=== PATIENT | male | born 1955 | race Caucasian/White ===

== ENCOUNTER 2016-11-25 00:26 | Inpatient (IN) ==
[2016-11-25] MEDS ORDERED: Ipratropium/Albuterol Neb 3 ML ONE (00:29)
[2016-11-25] MEDS ORDERED: 0.9 % Sodium Chloride 1,000 ML IVC ONE (00:30)
[2016-11-25] MEDS ORDERED: methylPREDNISolone 125 MG/2 ML VIAL IVP ONE (00:30)
[2016-11-25] MEDS ORDERED: Ipratropium/Albuterol Neb 3 ML IH ONE (00:30)
[2016-11-25] MEDS ORDERED: 0.9 % Sodium Chloride 500 ML IV ONE (00:31)
[2016-11-25 00:41] LABS: ABG Base Excess 4.7 mEq/L (-2.0 to 3.0); ABG HCO3 29.9 mEQ/L (21-27); ABG Oxygen Saturation 90 % (95-98); ABG PCO2 45 mmHg (35-45); ABG PH 7.43 pH Units (7.32-7.45); ABG PO2 56 mmHg (85-104); ABG TCO2 31.3 mEq/L (20-26)
[2016-11-25 00:42] LABS: Blood Gas FiO2 100 %
[2016-11-25 00:49] LABS: Basophils % 0.3 %; Eosinophils % 0.1 %; Hematocrit 45.8 % (37.5-50.1); Hemoglobin 14.8 g/dL (12.9-16.9); Immature Granulocytes % 0.5 % (0-4); Lymphocytes % 8.5 %; Mean Corpuscular HGB Conc 32.3 g/dL (31.6-35.5); Mean Corpuscular Volume 86.7 fL (83.0-100.0); Monocytes % 8.3 %; Neutrophils # 9.9 K/mcL (1.6-8.9); Platelet Count 167 K/mcL (140-400); Red Blood Count 5.28 M/mcL (4.19-5.50); Red Cell Distribution Width 16.4 % (11.5-14.5); Segmented Neutrophils % 82.3 %
[2016-11-25 01:03] LABS: BUN/Creatinine Ratio 15 (6-26); Blood Urea Nitrogen 17 mg/dL (8-26); Calcium 9.4 mg/dL (8.6-10.8); Carbon Dioxide 26 mEq/L (19-29); Chloride 99 mEq/L (98-109); Glucose 175 mg/dL (70-99); Osmolality,Calculated 292 (280-300); Potassium 4.5 mEq/L (3.5-4.5); Sodium 138 mEq/L (136-145); eGFR For African Americans > 60 (> 60); eGFR For Non-African Americans > 60 (> 60)
--- NOTE | 2016-11-25 02:05 | Emergency Department Note ---
Addendum entered and electronically signed by Kulwinder Feldman DO 11/25/16 04: 14: Patient given Ativan in order to allow him to tolerate nasal cannula eventually BiPAP. 1 mg without effect. Second milligram patient was still agitated trying to pull his mask off. Third milligram has the patient resting comfortably in bed with gag reflex still intact. Medicine resident bedside and given signout. No need for intubation at this time as gag reflex is intact the patient's hemodynamics oxygenation are the best they have been during his emergency department stay. Original Note: Disposition Clinical Impression: Pneumonia Qualifiers: Pneumonia type: due to unspecified organism Laterality: left Lung location: unspecified part of lung Qualified Code(s): J18.9 - Pneumonia, unspecified organism Disposition: Admitted As Inpatient Condition: Fair Referrals: NO,PCP [Non-Partnered Physician] - Forms: ED Satisfaction Letter SOB HPI - General Chief Complaint: ED Shortness of Breath/Dyspnea Stated Complaint: ISIDRA Source: patient, EMS, other Limitations: altered mental status Nursing Notes Reviewed: Yes Vital Signs Reviewed: Yes - History of Present Illness Patient brought in by EMS after being found by [facility] staff in a confused state after returning from a day out. Patient's been speaking in confused sentences. Patient states that he has a history of atrial flutter and is on Eliquis. - Related Data Home Medications Medication Instructions Recorded Confirmed Apixaban [Eliquis] 5 mg PO BID 06/22/15 03/04/16 Diltiazem HCl [Cardizem Cd] 360 mg PO DAILY 06/22/15 03/04/16 Metoprolol [Lopressor] 25 mg PO BID 06/22/15 03/04/16 Quetiapine Fumarate [Seroquel] 100 mg PO HS 10/21/15 03/04/16 Amiodarone [Cordarone] 200 mg PO DAILY 03/04/16 03/04/16 Aspirin 81 mg PO DAILY 03/04/16 03/04/16 Duloxetine [Cymbalta] 90 mg PO DAILY 03/04/16 03/04/16 Mirtazapine [Remeron] 15 mg PO HS 03/04/16 03/04/16 Previous Rx's Medication Instructions Recorded Docusate [Colace] 100 mg PO BID #30 capsule 04/27/16 Ibuprofen [Motrin] 800 mg PO Q8HR #50 tablet 03/06/16 OxyCODONE/APAP 10/325 [Percocet 1 each PO Q4HR PRN #35 tablet 03/06/16 10/325 MG] Hydrocodone/Acetaminophen [[place] 1 tab PO Q6H PRN #16 tab 07/18/16 5-325 Tablet] Methocarbamol [Robaxin] 750 mg PO Q8HR PRN #12 tablet 07/20/16 HYDROcodone/Acet 10/325 mg [[place] 1 tab PO Q6HR PRN #15 tab 07/22/16 10-325 mg] Allergies Allergy/AdvReac Type Severity Reaction Status Date / Time Tetanus Vaccines and Toxoid AdvReac Intermediate Fever Verified 06/22/15 14:01 [Tetanus Vaccines & Toxoid] Limitations: ROS unobtainable due to patients medical condition Past Medical History - Past Medical History Medical history: Reports: other Surgical history: Reports: angioplasty/stent, appendectomy, cholecystectomy, orthopedic, other, other Psychiatric history: Reports: anxiety, depression, other - Social History Smoking Status: Current every day smoker Smokeless Tobacco Status: No Alcohol use: Reports: none Drug use: Reports: none Physical Exam - General Limitations: altered mental status General appearance: alert - Head Head exam: atraumatic, normocephalic - Eye Eye exam: Present: normal appearance, PERRL, EOMI - ENT ENT exam: normal exam, normal oropharynx - Neck Neck exam: Present: normal inspection - Chest Chest inspection: Present: normal inspection, symmetric chest wall rise. Absent : tenderness - Respiratory Respiratory exam: Present: respiratory distress, wheezes (Diffuse bilateral) - Cardiovascular Cardiovascular exam: Present: normal rhythm, tachycardia - Abdominal Exam Abdominal exam: Present: soft, Non-Tender - Extremities Exam Extremities exam: Present: other (Many ecchymotic lesions to the upper extremities) - Back Exam Back exam: Present: normal inspection - Neurological Exam Neurological exam: Present: alert. Absent: oriented X3, motor sensory deficit - Skin Skin exam: Present: warm, dry, intact Course - Reevaluation(s) Reevaluation #1: Patient found to have significant pneumonia on the left. Patient has been refusing nasal cannula and BiPAP which drops his oxygen into the mid 70s resting in bed. Patient wants to go home. Was explained to the patient that he could go into respiratory arrest very easily. Patient is requesting Ativan and nicotine stay. Patient will be given Ativan and nicotine patch with Ativan titrated to agitation and allowing supplemental oxygen. - Consultations Consultation #1: Discussed with hospitalist. Dr. ROBERTSON Patient accepted. Vital Signs Temperature 98.1 F 11/25/16 00:30 Pulse Rate 121 11/25/16 00:30 Respiratory Rate 30 11/25/16 00:30 Blood Pressure 123/80 11/25/16 00:30 O2 Sat by Pulse Oximetry 92 L 11/25/16 00:30 Temperature 98.1 F 11/25/16 00:30 Pulse Rate 97 11/25/16 03:14 Respiratory Rate 22 11/25/16 03:14 Blood Pressure 130/76 11/25/16 03:14 O2 Sat by Pulse Oximetry 82 L 11/25/16 03:14 Oxygen Delivery Oxygen Delivery Room Air Shortness of Breath/Dyspnea - Lab Data Result diagrams: 11/25/16 00:40 11/25/16 00:40 Lab Results 11/25/16 11/25/16 11/25/16 Range/Units 00:34 00:34 00:40 WBC 12.1 H (4.3-11.1) K/mcL RBC 5.28 (4.19-5.50) M/mcL Hgb 14.8 (12.9-16.9) g/dL Hct 45.8 (37.5-50.1) % MCV 86.7 (83.0-100.0) fL MCH 28.0 (28.0-33.3) pg MCHC 32.3 (31.6-35.5) g/dL RDW 16.4 H (11.5-14.5) % Plt Count 167 (140-400) K/mcL MPV 10.0 (9.4-12.4) fL Immature Gran % 0.5 (0-4) % Seg Neutrophils % 82.3 % Lymphocytes % 8.5 % Monocytes % 8.3 % Eosinophils % 0.1 % Basophils % 0.3 % Neutrophils # 9.9 H (1.6-8.9) K/mcL Lymphocytes # 1.0 (0.6-4.6) K/mcL Monocytes # 1.0 (0.0-1.3) K/mcL Eosinophils # 0.0 (0.0-0.6) K/mcL Basophils # 0.0 (0.0-0.2) K/mcL D-Dimer (0-500) ng/mLFEU ABG pH 7.43 (7.32-7.45) pH Units ABG pCO2 45 (35-45) mmHg ABG pO2 56 L (85-104) mmHg ABG HCO3 29.9 H (21-27) mEQ/L ABG Total CO2 31.3 H (20-26) mEq/L ABG O2 Saturation 90 L (95-98) % ABG Base Excess 4.7 H (-2.0 to 3.0) mEq/L Blood Gas Modality NRB Inspired O2 100 % Sodium (136-145) mEq/L Potassium (3.5-4.5) mEq/L Chloride (98-109) mEq/L Carbon Dioxide (19-29) mEq/L BUN (8-26) mg/dL Creatinine (0.72-1.25) mg/dL Est GFR ( Amer) (> 60) Est GFR (Non-Af Amer) (> 60) BUN/Creatinine Ratio (6-26) Glucose (70-99) mg/dL POC Glucose 178 H (58-89) Calculated Osmolality (280-300) Calcium (8.6-10.8) mg/dL Troponin I (0-0.03) ng/mL B-Natriuretic Peptide (0-100) pg/mL 11/25/16 11/25/16 11/25/16 Range/Units 00:40 00:40 00:40 WBC (4.3-11.1) K/mcL RBC (4.19-5.50) M/mcL Hgb (12.9-16.9) g/dL Hct (37.5-50.1) % MCV (83.0-100.0) fL MCH (28.0-33.3) pg MCHC (31.6-35.5) g/dL RDW (11.5-14.5) % Plt Count (140-400) K/mcL MPV (9.4-12.4) fL Immature Gran % (0-4) % Seg Neutrophils % % Lymphocytes % % Monocytes % % Eosinophils % % Basophils % % Neutrophils # (1.6-8.9) K/mcL Lymphocytes # (0.6-4.6) K/mcL Monocytes # (0.0-1.3) K/mcL Eosinophils # (0.0-0.6) K/mcL Basophils # (0.0-0.2) K/mcL D-Dimer 1282 H (0-500) ng/mLFEU ABG pH (7.32-7.45) pH Units ABG pCO2 (35-45) mmHg ABG pO2 (85-104) mmHg ABG HCO3 (21-27) mEQ/L ABG Total CO2 (20-26) mEq/L ABG O2 Saturation (95-98) % ABG Base Excess (-2.0 to 3.0) mEq/L Blood Gas Modality Inspired O2 % Sodium 138 (136-145) mEq/L Potassium 4.5 (3.5-4.5) mEq/L Chloride 99 (98-109) mEq/L Carbon Dioxide 26 (19-29) mEq/L BUN 17 (8-26) mg/dL Creatinine 1.16 (0.72-1.25) mg/dL Est GFR ( Amer) > 60 (> 60) Est GFR (Non-Af Amer) > 60 (> 60) BUN/Creatinine Ratio 15 (6-26) Glucose 175 H (70-99) mg/dL POC Glucose (58-89) Calculated Osmolality 292 (280-300) Calcium 9.4 (8.6-10.8) mg/dL Troponin I 0.20 H* (0-0.03) ng/mL B-Natriuretic Peptide (0-100) pg/mL 11/25/16 Range/Units 00:40 WBC (4.3-11.1) K/mcL RBC (4.19-5.50) M/mcL Hgb (12.9-16.9) g/dL Hct (37.5-50.1) % MCV (83.0-100.0) fL MCH (28.0-33.3) pg MCHC (31.6-35.5) g/dL RDW (11.5-14.5) % Plt Count (140-400) K/mcL MPV (9.4-12.4) fL Immature Gran % (0-4) % Seg Neutrophils % % Lymphocytes % % Monocytes % % Eosinophils % % Basophils % % Neutrophils # (1.6-8.9) K/mcL Lymphocytes # (0.6-4.6) K/mcL Monocytes # (0.0-1.3) K/mcL Eosinophils # (0.0-0.6) K/mcL Basophils # (0.0-0.2) K/mcL D-Dimer (0-500) ng/mLFEU ABG pH (7.32-7.45) pH Units ABG pCO2 (35-45) mmHg ABG pO2 (85-104) mmHg ABG HCO3 (21-27) mEQ/L ABG Total CO2 (20-26) mEq/L ABG O2 Saturation (95-98) % ABG Base Excess (-2.0 to 3.0) mEq/L Blood Gas Modality Inspired O2 % Sodium (136-145) mEq/L Potassium (3.5-4.5) mEq/L Chloride (98-109) mEq/L Carbon Dioxide (19-29) mEq/L BUN (8-26) mg/dL Creatinine (0.72-1.25) mg/dL Est GFR ( Amer) (> 60) Est GFR (Non-Af Amer) (> 60) BUN/Creatinine Ratio (6-26) Glucose (70-99) mg/dL POC Glucose (58-89) Calculated Osmolality (280-300) Calcium (8.6-10.8) mg/dL Troponin I (0-0.03) ng/mL B-Natriuretic Peptide 197 H (0-100) pg/mL - Radiology Data Radiology results reviewed: Yes I reviewed the patient's radiology results. - EKG Data EKG attestation: Yes I reviewed and interpreted this EKG. EKG results narrative: EKG shows sinus tachycardia with a ventricular rate of 120 bpm. GA interval 176. QRS 114. Patient has concern for T-wave inversions in the lateral leads. EKG changes to since previous EKG of 01/30/16.
[2016-11-25] MEDS ORDERED: Aspirin 81 MG TAB.CHEW PO ONE (02:18)
[2016-11-25] MEDS ORDERED: *HR* LORazepam 2 MG/ML VIAL IVP ONE ×3 (03:03→03:29)
[2016-11-25] MEDS ORDERED: Azithromycin 500 MG in D5% in Water 250 ML IVPB ONE (03:04)
[2016-11-25] MEDS ORDERED: *HR* LORazepam 2 MG/ML VIAL ONE (03:23)
[2016-11-25] MEDS ORDERED: 0.9 % Sodium Chloride 1,000 ML IV ONE (03:34)
[2016-11-25] MEDS ORDERED: Naloxone 0.4 MG/ML INJ IVP PRN (04:19)
--- NOTE | 2016-11-25 05:13 | Internal Med History&Physical ---
<Erik Abarca - Last Filed: 11/25/16 06:17> Date of Encounter: 11/25/16 Time of Encounter: 04:00 Assessment and Plan (1) Respiratory failure Current visit: Yes Status: Acute Acute on chronic respiratory failure with COPD exacerbation secondary to pneumonia. Currently saturating well on BIPAP. Due to the sedated mental status will continue BIPAP at this time, wean off once more awake and alert. Continue to monitor O2 Sat, O2 sat goal 89-92% Continue O2 supplementation as needed Qualifiers: Chronicity: acute on chronic Respiratory failure complication: hypoxia Qualified Code(s): J96.21 - Acute and chronic respiratory failure with hypoxia (2) Pneumonia Current visit: Yes Status: Acute Community acquired pneumonia. Azithromycin and ceftriaxone given in the ED. Continue Azithromycin and cetriaxone Follow blood culture. Qualifiers: Pneumonia type: due to unspecified organism Laterality: left Lung location: unspecified part of lung Qualified Code(s): J18.9 - Pneumonia, unspecified organism (3) COPD (chronic obstructive pulmonary disease) Current visit: Yes Status: Acute Patient given solumedrol 125 in the ED. Continue IV steroids and bronchodilators. Titrate therapy as patient clinically improves. Patient currently on BIPAP. Qualifiers: COPD type: COPD with acute exacerbation Qualified Code(s): J44.1 - Chronic obstructive pulmonary disease with (acute) exacerbation (4) Atrial flutter Current visit: Yes Status: Acute Currently sinus rhythm. Continue lopressor and cardizem. Anticoagulation with Eliquis. Qualifiers: Atrial flutter type: atypical Qualified Code(s): I48.4 - Atypical atrial flutter (5) CAD (coronary artery disease) Current visit: No Status: Chronic Status post angioplasty and stenting. With elevated troponin likely due to demand ischemia. Will trend troponins. Qualifiers: Coronary Disease-Associated Artery/Lesion type: [place] artery [place] vs. transplanted heart: [place] heart Associated angina: without angina Qualified Code(s): I25.10 - Atherosclerotic heart disease of [place] coronary artery without angina pectoris (6) DVT prophylaxis Current visit: Yes Status: Acute The patient is on Eliquis. (7) Diabetes Current visit: Yes Status: Acute Sliding scale with glucose checks Q6 until the patient is able to eat. Diabetic diet. Last A1c in June 2015 was 6.7. Will repeat A1c Qualifiers: Diabetes mellitus type: type 2 Diabetes mellitus complication status: with unspecified complications Diabetes mellitus superintendent terminal insulin use: without superintendent terminal use Qualified Code(s): E11.8 - Type 2 diabetes mellitus with unspecified complications (8) Tobacco abuse Current visit: Yes Status: Acute Unable to give smoking cessation counselling at this time due to patient being unarousable. Nicoderm patches PRN. (9) Polysubstance abuse Current visit: No Status: Chronic History of alcohol abuse reported. Followup EtOH level. If positive consider CIWA protocol. Followup Urine tox screen. Internal Medicine - H&P: HPI Chief complaint: shortness of breath Admitted From: Emergency Dept Plans for Post Hospital Care: Home (intermediate) History of present illness: Mr. Gilliland is a 61 year old male with PMH significant for CAD, A. flutter, COPD, HTN, and thyroid disease who presented to the ED via EMS for shortness of breath. It was reported that the patient returned to his intermediate after being out for the day and seemed slightly confused and complained of being short of breath. EMS was then called. In the emergency department the patient was noncooperative and wanting to leave AMA despite oxygen saturation being in the 70s on room air. The patient was at 95% saturation on 70% FiO2 with nonrebreather mask. The ED staff decided to place the patient on BiPAP, but the patient continued to be uncooperative. He was subsequently given 3 doses of 1mg Ativan and became somnolent. When I arrived at the ED to obtain history from the patient he was not able to be aroused, but did have a gag reflex elicited by a tongue depressor. Due to this history was not able to be obtained directly from the patient, but additional history was obtained by old medical records. Additional history demonstrates that the patient has a history of drug abuse with heroin, hepatitis C and chronic alcohol use with alcohol dependence. He additionally has several suicide attempts. Past Med Surg Social Fam HX - Past Medical History Source: old records reviewed Medical history: COPD, coronary artery disease, hepatitis (C), hypertension, thyroid disease, other (atrial flutter) Psychiatric history: anxiety, depression, prior suicide attempt, other - Past Surgical History Surgical History: angioplasty/stent, appendectomy, cholecystectomy, orthopedic, other, other - Social History Smoking Status: Current every day smoker Smokeless Tobacco Status: No Alcohol use: none Drug use: none - Additional Family History Additional family history: Not obtainable due to patient's status. Internal Medicine - H&P: Meds RX: Apixaban [Eliquis] 5 mg PO BID 06/22/15 [History] RX: Diltiazem HCl [Cardizem Cd] 360 mg PO DAILY 06/22/15 [History] RX: Metoprolol [Lopressor] 25 mg PO BID 06/22/15 [History] RX: Quetiapine Fumarate [Seroquel] 100 mg PO HS 10/21/15 [History] RX: Amiodarone [Cordarone] 200 mg PO DAILY 03/04/16 [History] RX: Aspirin 81 mg PO DAILY 03/04/16 [History] RX: Duloxetine [Cymbalta] 90 mg PO DAILY 03/04/16 [History] RX: Mirtazapine [Remeron] 15 mg PO HS 03/04/16 [History] Docusate [Colace] 100 mg PO BID #30 capsule 03/06/16 [Rx] OxyCODONE/APAP 10/325 [Percocet 10/325 MG] 1 each PO Q4HR PRN #35 tablet [Rx] RX: Ibuprofen [Motrin] 800 mg PO Q8HR #50 tablet 03/06/16 [Rx] Hydrocodone/Acetaminophen [[place] 5-325 Tablet] 1 tab PO Q6H PRN #16 tab [Rx] Methocarbamol [Robaxin] 750 mg PO Q8HR PRN #12 tablet 07/20/16 [Rx] HYDROcodone/Acet 10/325 mg [Zap 10-325 mg] 1 tab PO Q6HR PRN #15 tab 07/22/16 [Rx] Allergies Tetanus Vaccines and Toxoid [Tetanus Vaccines & Toxoid] Adverse Reaction ( Intermediate, Verified 06/22/15 14:01) Fever PATIENT STATES HE EXPERIENCED A HIGH FEVER AND INABILITY TO GET OUT OF BED ROS unobtainable: due to mental status All Systems PM: A 10-system review of systems was performed and is negative for pertinent findings except as documented above in the HPI. - Constitutional Vitals: Temp Pulse Resp BP Pulse Ox 98.1 F 93 18 113/67 95 11/25/16 00:30 11/25/16 03:49 11/25/16 03:58 11/25/16 03:58 11/25/16 03:49 Exam: Patient was non-rousable - Head Head exam: Present: atraumatic, normocephalic - Neck Neck exam general surgery: Present: supple, trachea midline. Absent: lymphadenopathy - Respiratory Respiratory exam: Present: wheezes. Absent: accessory muscle use, rales, rhonchi Additional comments: On BiPAP - Cardiovascular Cardiovascular exam: Present: RRR, +S1, +S2. Absent: diastolic murmur, gallop, rubs, systolic murmur - GI/Abdominal GI/Abdominal exam: Present: normal bowel sounds, soft. Absent: distended - Extremities Exam Extremities exam: Present: warm, radial pulses palpable and symetrical. Absent : cyanotic, pedal edema - Neurological Exam Additional comments: Unable to assess - Skin Skin exam: Present: abrasion (Multiple abrasions present over all extremities in different states of healing), dry Additional comments: Ecchymosis present over the right forearm Internal Med - H&P Results - Labs CBC & Chem 7: 11/25/16 00:40 11/25/16 00:40 - Attending Attestation I examined this patient and my medical decision-making was reviewed with the EDDY CURRENT INSPECTOR/PA/Advanced Practice Nurse/Resident Physician. I agree with the documented findings, disposition and treatment plan as described except to the extent set forth below. <Lindsey Morel - Last Filed: 11/25/16 06:22> Date of Encounter: 11/25/16 Time of Encounter: 05:15 Internal Medicine - H&P: HPI History of present illness: Mr. Gilliland is a 61 year old male All Systems PM: A 10-system review of systems was performed and is negative for pertinent findings except as documented above in the HPI. - Constitutional Vitals: Temp Pulse Resp BP Pulse Ox 97.5 F L 87 14 109/80 93 L 11/25/16 05:29 11/25/16 05:29 11/25/16 05:29 11/25/16 05:29 11/25/16 05:29 Internal Med - H&P Results - Labs CBC & Chem 7: 11/25/16 00:40 11/25/16 00:40 - Attending Attestation Patient resting in bed, somnolent, saturating well on bipap. Please attempt to obtain more clinical history once patient awakens. Acute respiratory failure secondary underlyling COPD exacerbation Multifocal PNA-continue IV abx COPD exac: IV steroids and bronchodilators, titrate therapy as patient clinically improves Aflutter: Rate currently controlled and anticoagulated with Eliquis. Patient noted to have diffuse bruising on upper and lower extremities, please obtain PT/ OT eval prior to discharge. Unclear etiology of bruising whether they are secondary to falls worsened with current Eliquis use. F/U Tox screen and EtOH level Pt has history of HbA1C of 6.7 however not on any antidiabetic regimen at home. Will start correctional insulin sliding scale algorithm and closely monitor fingerstick and blood glucose.
[2016-11-25] MEDS: Famotidine 20 MG/2 ML VIAL IVP SCH ×2 (05:32→17:13)
[2016-11-25] MEDS ORDERED: D5% in Water 1,000 ML IV PRN (05:43)
[2016-11-25] MEDS ORDERED: Dextrose Gel 15 GM PO PRN ×2 (05:43)
[2016-11-25] MEDS ORDERED: *HR* Dextrose 50 % in Water (Syg) 50 ML SYRINGE IVP PRN (05:43)
[2016-11-25 06:01] LABS: Amphetamine Screen,Urine Negative ng/mL (Cutoff=1000); Barbiturate Screen,Urine Negative ng/mL (Cutoff=200); Benzodiazepines Screen,Urine Negative ng/mL (Cutoff=200); Cannabinoid Screen,Urine Negative ng/mL (Cutoff = 50); Cocaine Screen,Urine Negative ng/mL (Cutoff= 300); Opiate Screen,Urine Negative ng/mL (Cutoff=300); Phencyclidine Screen,Urine Negative ng/mL (Cutoff=25)
[2016-11-25] MEDS: Insulin LISPRO 300 UNITS/3 ML VIAL SQ SCH ×4 (06:32→20:40)
[2016-11-25] MEDS ORDERED: Aspirin 325 MG TABLET PO ONE (09:00)
--- NOTE | 2016-11-25 10:00 | Cardiology Consult Note ---
Date of Encounter: 11/25/16 Time of Encounter: 10:00 Assessment and Plan (1) Elevated troponin Current Visit: Yes Status: Acute Mildly elevated troponin in setting of multifocal pneumonia and respiratory insufficiency. No dynamic ECG changes. Presentation not consistent with ACS. Elevated troponin appears secondary to respiratory insufficiency. Recommend a repeat echocardiogram and a third troponin. If no significant changes in LVEF or troponin, then I would not recommend any further cardiac testing at this time. Your supportive managment regarding PNA and comorbidities. (2) Atrial flutter Current Visit: Yes Status: Acute Currently sinus rhythm. Paroxysmal atrial flutter history s/p attempted ablation in 2012. Ablation not successful and patient had cardioversion after procedure. He has been maintained on full AC and BB therapy. No new recommendations. Qualifiers: Atrial flutter type: atypical Qualified Code(s): I48.4 - Atypical atrial flutter (3) Pneumonia Current Visit: Yes Status: Acute Community acquired pneumonia. Your IM management. Qualifiers: Pneumonia type: due to unspecified organism Laterality: left Lung location: unspecified part of lung Qualified Code(s): J18.9 - Pneumonia, unspecified organism (4) CAD (coronary artery disease) Current Visit: No Status: Chronic Reported history of CAD, prior PCI. Recommend continue aspirin, statin, and BB therapy. Qualifiers: Coronary Disease-Associated Artery/Lesion type: [place] artery [place] vs. transplanted heart: [place] heart Associated angina: without angina Qualified Code(s): I25.10 - Atherosclerotic heart disease of [place] coronary artery without angina pectoris Discussion w patient/family: The assessment and plan as outlined above was discussed with the patient and/or family members who expressed understanding and agreement. All questions were answered. Thank you for involving us in the care of your patient. Please call with any questions. History of Present Illness Consult date: 11/25/16 Requesting physician: Lindsey Morel Consult reason: ISIDRA, elevated troponin Chief complaint: ISIDRA History of present illness: Mr. Gilliland is a 61 year old male with a reported history of CAD, prior PCI, atrial flutter s/p attempted ablation requiring cardioversion. Follows with Dr. Denson and has been on Eliquis therapy. Echocardiogram 10/2015 - LVEF 50-55%. Inferior hypokinesis. Per reports, presented to ER with altered mentation. Respiratory insufficiency reported in ER requiring CPAP. CT obtained - multifocal pneumonia described. Upon my evaluation, patient appears comfortable on CPAP. Appears tired, but easliy awakens with tactile stimuli. He does fall back asleep easily. Does not provide details of history. Past Med Surg Social Fam HX - Past Medical History Medical history: COPD, coronary artery disease, hepatitis (C), hypertension, thyroid disease, other (atrial flutter) Psychiatric history: anxiety, depression, prior suicide attempt, other - Past Surgical History Surgical History: angioplasty/stent, appendectomy, cholecystectomy, orthopedic, other, other - Social History Smoking Status: Current every day smoker Smokeless Tobacco Status: No Alcohol use: none Drug use: none Medications and Allergies Apixaban [Eliquis] 5 mg PO BID 06/22/15 [History] Diltiazem HCl [Cardizem Cd] 360 mg PO DAILY 06/22/15 [History] Metoprolol [Lopressor] 25 mg PO BID 06/22/15 [History] Quetiapine Fumarate [Seroquel] 100 mg PO HS 10/21/15 [History] Amiodarone [Cordarone] 200 mg PO DAILY 03/04/16 [History] Aspirin 81 mg PO DAILY 03/04/16 [History] Duloxetine [Cymbalta] 90 mg PO DAILY 03/04/16 [History] Mirtazapine [Remeron] 15 mg PO HS 03/04/16 [History] Docusate [Colace] 100 mg PO BID #30 capsule 03/06/16 [Rx] Ibuprofen [Motrin] 800 mg PO Q8HR #50 tablet 03/06/16 [Rx] OxyCODONE/APAP 10/325 [Percocet 10/325 MG] 1 each PO Q4HR PRN #35 tablet [Rx] Hydrocodone/Acetaminophen [[place] 5-325 Tablet] 1 tab PO Q6H PRN #16 tab [Rx] Methocarbamol [Robaxin] 750 mg PO Q8HR PRN #12 tablet 07/20/16 [Rx] HYDROcodone/Acet 10/325 mg [[place] 10-325 mg] 1 tab PO Q6HR PRN #15 tab 07/22/16 [Rx] Allergies Tetanus Vaccines and Toxoid [Tetanus Vaccines & Toxoid] Adverse Reaction ( Intermediate, Verified 06/22/15 14:01) Fever PATIENT STATES HE EXPERIENCED A HIGH FEVER AND INABILITY TO GET OUT OF BED ROS unobtainable: due to mental status, other (lethargy) All Systems Review: A 10-system review of systems was performed and is negative for pertinent findings except as documented above in the HPI. Physical Examination Vital Signs, Last 4 Hours Temp Pulse Resp BP Pulse Ox 11/25/16 09:06 76 11 103/68 89 L 11/25/16 07:35 78 10 90 L 11/25/16 07:24 97.6 F 75 10 92/61 92 L General: No Apparent Distress, Other (Lethargic) HEENT: Atraumatic, Normocephaly, Mucus Membranes Moist Neck: No JVD, Normal carotid pulses Cardiac: Reg Rate and Rhythm, Normal S1 and S2, No Murmur Lungs: Other (Shallow, scattered rhonchi) Neuro: Other (Asleep) Abdomen: Soft, Non-Tender Skin: No rashes noted on visualized skin Musculoskeletal: No Chest Wall Tenderness Extremities: No Edema Results 11/25/16 00:40 11/25/16 00:40 Lab Results 11/25/16 05:53 Troponin I 0.63 H* - Imaging and Cardiology Chest Xray: report reviewed Echo: report reviewed - EKG Interpretation EKG results cardiology: personally reviewed Consult Discharge Plan - Plan Referrals: Isauro Denson MD [Primary Care Provider] -
[2016-11-25] MEDS: Nicotine 21 MG PATCH.TD24 TD SCH (12:41)
[2016-11-25] MEDS: APIXABAN 5 MG TABLET PO SCH ×2 (12:42→20:48)
[2016-11-25] MEDS: Aspirin 81 MG TAB.CHEW PO SCH (12:42)
[2016-11-25] MEDS: Diltiazem CD (24hr) 180 MG CAPSULE PO SCH (12:42)
--- NOTE | 2016-11-25 12:46 | Event Note ---
Date of Encounter: 11/25/16 Time of Encounter: 10:00 pt was admitted early in the morning with bilateral pneumonia will . still SOB will increase antibiotic coverage to zosyn , until cultures arrive pt lethargic concern for aspiration as well , will D escalate after culture results
--- NOTE | 2016-11-25 13:03 | ECHO - Doppler Report ---
Limited Echocardiogram Name: Donn Gilliland Date of Study: 11/25/2016 Date: 1955 Ht: 73.0 in Medical Record#: [id number] Age: 61 Wt: 209.0 lb Gender: Male BSA: 2.19 Order #: [id number] Location: [facility] Room #: 2N10 Reading Physician: Xiomy Allan DO Pulmonary Specialist: Joaquin Gonzales RN Ordering Physician: Saulo Ray DO,[facility],JANINA ONTIVEROS Primary Physician: None Indications: Coronary artery disease Impressions: LVEF 65%. Normal left ventricular size and systolic function. Segmental wall motion abnormality was seen on previous study, 10/23/2015. Left Ventricular Wall Motion: Rest Echo Findings The basal inferior wall was hypokinetic. All other wall segments showed normal motion. Findings: Study Quality * Technically adequate exam. ECG Findings * Normal sinus rhythm. Left Ventricle * LVEF 65%. * Normal LV chamber size, wall thickness and function. History History of Smoking Years 40 Packs 1 Family History of CAD History of CAD/PTCA Myocardial Infarction Congestive Heart Failure 10/23/2015 a Previous Echo was performed. Measurements: BP: 117/ 81 2D Normal Values IVSd: 1.10 cm 0.6 - 1.0 cm LVIDd: 5.40 cm 3.7 - 5.6 cm LVPWd: 1.10 cm 0.6 - 1.1 cm LVIDs: 2.90 cm 1.5 - 3.6 cm %FS: 46.30 cm >25 % LA volume: Updated by Xiomy Allan on 11/25/2016 12:59:20 PM electronically signed on 11/25/2016 1:00:18 PM with status of Final Wall Motion Howe: 1=Normal, 2=Hypokinesis, 3=Akinesis, 4=Dyskinesis, 5=Aneurysmal, 6=Hyperkinetic, X=Not Visualized (Blank)=Missing
--- NOTE | 2016-11-25 13:18 | Event Note ---
Date of Encounter: 11/25/16 Time of Encounter: 13:16 Echocardiogram reviewed. LVEF 65%. No segmental wall motion abnormalities described. Suspect troponin elevation likely secondary to multifocal pneumonia and respiratory insufficiency. No compelling indication for further cardiac testing or procedures at this time. Your medical management. Cardiology will sign off. Please call with any questions or concerns. Follow up with cardiology as outpatient for history of atrial flutter. Thanks, Saulo Ray DO, FACC
--- NOTE | 2016-11-25 15:06 | Electrocardiograph Report ---
[facility] Test Date: 2016-11-25 Pat Name: Donn Gilliland Department: 102 Room: 2N10 Gender: M Software Engineering Associate Manager: Vivek : 1955 Requested By: Kulwinder Feldman Order Number: [id number] Reading MD: Isauro Denson MD Measurements Intervals [place] Rate: 120 P: 35 [place]: 176 QRS: -22 QRSD: 114 T: 89 QT: 433 QTc: 505 Interpretive Statements SINUS TACHYCARDIA CONSIDER LATERAL ISCHEMIA POOR R WAVE PROGRESSION Electronically Signed On 11-25-16 15:05:00 EST by Isauro Denson MD
[2016-11-25] MEDS: MethylPREDNISolone 40 MG/ML VIAL IVP SCH (17:13)
[2016-11-25] MEDS: *HR* HYDROcodone/Acet 5/325 mg TABLET PO PRN (17:13)
[2016-11-25] MEDS: Piperacillin/Tazobactam 3.375 GM in D5% in Water (Mini-Bag+) 100 ML IVPB SCH (17:13)
[2016-11-25] MEDS: *HR* LORazepam 1 MG TABLET PO PRN (20:48)
[2016-11-26] MEDS: Piperacillin/Tazobactam 3.375 GM in D5% in Water (Mini-Bag+) 100 ML IVPB SCH ×3 (00:15→16:00)
[2016-11-26] MEDS: *HR* LORazepam 1 MG TABLET PO PRN ×2 (00:16→08:12)
[2016-11-26 05:19] LABS: Hematocrit 41.7 % (37.5-50.1); Hemoglobin 13.4 g/dL (12.9-16.9); Mean Corpuscular HGB Conc 32.1 g/dL (31.6-35.5); Mean Corpuscular Hemoglobin 27.7 pg (28.0-33.3); Mean Corpuscular Volume 86.2 fL (83.0-100.0); Mean Platelet Volume 9.8 fL (9.4-12.4); Platelet Count 192 K/mcL (140-400); Red Blood Count 4.84 M/mcL (4.19-5.50); Red Cell Distribution Width 16.9 % (11.5-14.5)
[2016-11-26 05:33] LABS: BUN/Creatinine Ratio 19 (6-26); Blood Urea Nitrogen 15 mg/dL (8-26); Calcium 9.1 mg/dL (8.6-10.8); Carbon Dioxide 26 mEq/L (19-29); Chloride 102 mEq/L (98-109); Glucose 164 mg/dL (70-99); Osmolality,Calculated 290 (280-300); Sodium 138 mEq/L (136-145); eGFR For African Americans > 60 (> 60); eGFR For Non-African Americans > 60 (> 60)
[2016-11-26 05:40] LABS: Potassium 4.8 mEq/L (3.5-4.5)
[2016-11-26] MEDS ORDERED: Azithromycin 500 MG in D5% in Water 250 ML IVPB SCH (06:00)
[2016-11-26] MEDS: Famotidine 20 MG/2 ML VIAL IVP SCH ×2 (06:09→17:52)
[2016-11-26] MEDS: MethylPREDNISolone 40 MG/ML VIAL IVP SCH ×2 (06:09→17:52)
[2016-11-26] MEDS: APIXABAN 5 MG TABLET PO SCH ×2 (08:12→20:38)
[2016-11-26] MEDS: Aspirin 81 MG TAB.CHEW PO SCH (08:13)
[2016-11-26] MEDS: Diltiazem CD (24hr) 180 MG CAPSULE PO SCH (08:13)
[2016-11-26] MEDS: Insulin LISPRO 300 UNITS/3 ML VIAL SQ SCH ×4 (08:16→20:38)
[2016-11-26] MEDS: Nicotine 21 MG PATCH.TD24 TD SCH (08:20)
[2016-11-26] MEDS: Lactobacillus 1 EACH CAP.SPRINK PO SCH ×2 (09:26→20:38)
[2016-11-26] MEDS: Vancomycin 1,500 MG in D5% in Water 250 ML IVPB SCH ×2 (11:07→23:25)
[2016-11-26] MEDS ORDERED: *HR* LORazepam 2 MG/ML VIAL IVP ONE (12:11)
[2016-11-26] MEDS ORDERED: Haloperidol Lactate 5 MG/ML VIAL IM ONE (14:08)
[2016-11-26] MEDS ORDERED: Haloperidol Lactate 5 MG/ML VIAL ONE (14:10)
--- NOTE | 2016-11-26 14:13 | Internal Med Progress Note ---
Date of Encounter: 11/26/16 Time of Encounter: 09:50 - Assessment and plan (1) Respiratory failure Current Visit: Yes Status: Acute Assessment and plan: Continue current management with treatment for pneumonia and COPD exacerbation. Continue O2 supplementation. Qualifiers: Chronicity: acute on chronic Respiratory failure complication: hypoxia Qualified Code(s): J96.21 - Acute and chronic respiratory failure with hypoxia (2) Pneumonia Current Visit: Yes Status: Acute Assessment and plan: Acute multifocal pneumonia. We will add vancomycin to current antibiotic regimen. Stop ceftriaxone and azithromycin. Consent for aspiration risk. Speech therapy has been consulted. We will follow recommendations. Qualifiers: Pneumonia type: due to unspecified organism Laterality: left Lung location: unspecified part of lung Qualified Code(s): J18.9 - Pneumonia, unspecified organism (3) Atrial flutter Current Visit: Yes Status: Chronic Assessment and plan: On the amiodarone and Eliquis. Qualifiers: Atrial flutter type: atypical Qualified Code(s): I48.4 - Atypical atrial flutter (4) COPD (chronic obstructive pulmonary disease) Current Visit: Yes Status: Acute Assessment and plan: On scheduled nebs. Also receiving steroids. Will continue current treatment plan. Qualifiers: COPD type: COPD with acute exacerbation Qualified Code(s): J44.1 - Chronic obstructive pulmonary disease with (acute) exacerbation (5) Diabetes Current Visit: Yes Status: Chronic Assessment and plan: A1c is 6%. Continue to monitor blood sugars and use low-dose sliding scale insulin. Qualifiers: Diabetes mellitus type: type 2 Diabetes mellitus complication status: with unspecified complications Diabetes mellitus terminal block assembler insulin use: without skilled nursing use Qualified Code(s): E11.8 - Type 2 diabetes mellitus with unspecified complications (6) Elevated troponin Current Visit: Yes Status: Acute Assessment and plan: Cardiology consulted. Most likely troponin elevation due to acute respiratory distress and hypoxia. Recommend conservative medical management. (7) Tobacco abuse Current Visit: Yes Status: Acute Assessment and plan: Patient has been consulted (8) CAD (coronary artery disease) Current Visit: No Status: Chronic Assessment and plan: On aspirin, beta lonnie. Qualifiers: Coronary Disease-Associated Artery/Lesion type: [place] artery [place] vs. transplanted heart: [place] heart Associated angina: without angina Qualified Code(s): I25.10 - Atherosclerotic heart disease of [place] coronary artery without angina pectoris (9) Alcoholism Current Visit: No Status: Suspected Assessment and plan: Patient exhibiting signs of withdrawal. He does have history of polydrug and alcohol abuse. We will monitor him closely and treat him per [facility] protocol. - Subjective Interval history: Patient is feeling better today. Denies any complaints. No chest pain. No shortness of breath. No fever reported. During the course of today, patient is beginning to exhibit signs of withdrawal with increased agitation, anxiety. He does have a history of alcohol abuse. His initial blood alcohol levels were negative here. - Constitutional Vitals: Temp Pulse Resp BP Pulse Ox 97.6 F 77 14 136/86 92 L 11/26/16 07:00 11/26/16 07:00 11/26/16 07:00 11/26/16 07:00 11/26/16 07:00 General appearance: Present: cooperative, A&O X 3, answers questions appropriately Exam: Moderate distress - Respiratory Respiratory exam: Present: prolonged expiratory phase, wheezes. Absent: accessory muscle use, rales, rhonchi Additional comments: Coarse breath sounds bilaterally - Cardiovascular Cardiovascular exam: Present: RRR, +S1, +S2. Absent: diastolic murmur, gallop, rubs, systolic murmur - GI/Abdominal GI/Abdominal exam: Present: normal bowel sounds, soft, no peritoneal signs. Absent: distended, tenderness - Extremities Exam Extremities exam: Present: warm, radial pulses palpable and symetrical. Absent : calf tenderness, cyanotic, pedal edema - Neurological Exam Neurological exam: Present: CN II-XII intact, oriented X3, no focal deficits. Absent: facial droop, speech deficit Internal Medicine: Result - Labs CBC & Chem 7: 11/26/16 04:55 11/26/16 04:55 - ABG Interpretation ABG results: ABG ABG pH 7.43 pH Units (7.32-7.45) 11/25/16 00:34 ABG pCO2 45 mmHg (35-45) 11/25/16 00:34 ABG pO2 56 mmHg (85-104) L 11/25/16 00:34 ABG O2 Saturation 90 % (95-98) L 11/25/16 00:34 PT/INR, D-dimer D-Dimer 1282 ng/mLFEU (0-500) H 11/25/16 00:40 Consult Discharge Plan - Plan Referrals: Isauro Denson MD [Primary Care Provider] - - Attending Attestation This document has been at least partially created by [employer] recognition technology by Dr. Crespo. Errors in grammar, wording or other phrases may exist. If errors are found after the documentation is signed, they will be addressed individually in the addendum section of this document when appropriate. Medical Decision Making - MDM Narrative Medical decision making narrative: High risk for complications due to withdrawal symptoms and requirement for Ativan intravenously. - Medical Records Medical records reviewed: Yes I reviewed the patient's medical records. - Lab Data Lab results reviewed: Yes I reviewed the patient's lab results. Result diagrams: 11/26/16 04:55 11/26/16 04:55
[2016-11-27] MEDS: Piperacillin/Tazobactam 3.375 GM in D5% in Water (Mini-Bag+) 100 ML IVPB SCH ×3 (00:48→16:32)
[2016-11-27] MEDS: *HR* LORazepam 1 MG TABLET PO PRN (00:49)
[2016-11-27] MEDS: *HR* LORazepam 2 MG/ML VIAL IVP PRN ×4 (03:05→21:12)
[2016-11-27 04:33] LABS: Basophils % 0.1 %; Hematocrit 38.9 % (37.5-50.1); Hemoglobin 12.7 g/dL (12.9-16.9); Lymphocytes # 1.5 K/mcL (0.6-4.6); Lymphocytes % 8.1 %; Mean Corpuscular HGB Conc 32.6 g/dL (31.6-35.5); Mean Corpuscular Hemoglobin 28.2 pg (28.0-33.3); Mean Corpuscular Volume 86.4 fL (83.0-100.0); Mean Platelet Volume 10.4 fL (9.4-12.4); Monocytes # 1.3 K/mcL (0.0-1.3); Neutrophils # 15.4 K/mcL (1.6-8.9); Platelet Count 217 K/mcL (140-400); Red Cell Distribution Width 17.1 % (11.5-14.5); Segmented Neutrophils % 83.8 %
[2016-11-27 04:48] LABS: BUN/Creatinine Ratio 20 (6-26); Blood Urea Nitrogen 16 mg/dL (8-26); Calcium 8.8 mg/dL (8.6-10.8); Carbon Dioxide 26 mEq/L (19-29); Chloride 103 mEq/L (98-109); Glucose 156 mg/dL (70-99); Osmolality,Calculated 292 (280-300); Potassium 4.1 mEq/L (3.5-4.5); Sodium 139 mEq/L (136-145); eGFR For African Americans > 60 (> 60); eGFR For Non-African Americans > 60 (> 60)
[2016-11-27] MEDS: Famotidine 20 MG/2 ML VIAL IVP SCH ×2 (05:59→18:57)
[2016-11-27] MEDS: MethylPREDNISolone 40 MG/ML VIAL IVP SCH (06:00)
[2016-11-27] MEDS: Folic Acid 1 MG TABLET PO SCH (08:18)
[2016-11-27] MEDS: Lactobacillus 1 EACH CAP.SPRINK PO SCH ×2 (08:18→23:47)
[2016-11-27] MEDS: Aspirin 81 MG TAB.CHEW PO SCH (08:18)
[2016-11-27] MEDS: Diltiazem CD (24hr) 180 MG CAPSULE PO SCH (08:18)
[2016-11-27] MEDS: APIXABAN 5 MG TABLET PO SCH ×2 (08:18→23:47)
[2016-11-27] MEDS: Nicotine 21 MG PATCH.TD24 TD SCH (08:20)
[2016-11-27] MEDS: Insulin LISPRO 300 UNITS/3 ML VIAL SQ SCH ×4 (08:21→21:40)
--- NOTE | 2016-11-27 09:44 | Internal Med Progress Note ---
Date of Encounter: 11/27/16 Time of Encounter: 09:15 - Assessment and plan (1) Pneumonia Current Visit: Yes Status: Acute Assessment and plan: Multifocal pneumonia. Currently on Zosyn and vancomycin. Qualifiers: Pneumonia type: due to unspecified organism Laterality: left Lung location: unspecified part of lung Qualified Code(s): J18.9 - Pneumonia, unspecified organism (2) Alcohol withdrawal delirium Current Visit: Yes Status: Acute Assessment and plan: Being treated per [facility] protocol. Patient does have history of alcohol abuse. We will monitor closely. (3) Atrial flutter Current Visit: Yes Status: Chronic Assessment and plan: Resume amiodarone. Patient is currently tachycardic. Could be component of withdrawal. On Cardizem and metoprolol also. Anticoagulation with Eliquis Qualifiers: Atrial flutter type: atypical Qualified Code(s): I48.4 - Atypical atrial flutter (4) COPD (chronic obstructive pulmonary disease) Current Visit: Yes Status: Acute Assessment and plan: Improving. We will wean down steroids. Qualifiers: COPD type: COPD with acute exacerbation Qualified Code(s): J44.1 - Chronic obstructive pulmonary disease with (acute) exacerbation (5) Diabetes Current Visit: Yes Status: Chronic Assessment and plan: Fairly controlled. Continue current insulin regimen. Diabetic diet. Qualifiers: Diabetes mellitus type: type 2 Diabetes mellitus complication status: with unspecified complications Diabetes mellitus detention insulin use: without petroleum terminal plant operator use Qualified Code(s): E11.8 - Type 2 diabetes mellitus with unspecified complications (6) Elevated troponin Current Visit: Yes Status: Acute Assessment and plan: Cardiology has seen patient. Recommend no further cardiac evaluation needed at this time. (7) Respiratory failure Current Visit: Yes Status: Acute Qualifiers: Chronicity: acute on chronic Respiratory failure complication: hypoxia Qualified Code(s): J96.21 - Acute and chronic respiratory failure with hypoxia (8) Tobacco abuse Current Visit: Yes Status: Acute Assessment and plan: On nicotine patch. (9) CAD (coronary artery disease) Current Visit: No Status: Chronic Assessment and plan: On aspirin, beta lonnie. Qualifiers: Coronary Disease-Associated Artery/Lesion type: [place] artery [place] vs. transplanted heart: [place] heart Associated angina: without angina Qualified Code(s): I25.10 - Atherosclerotic heart disease of [place] coronary artery without angina pectoris (10) Alcoholism Current Visit: No Status: Chronic - Subjective Interval history: Patient is awake and alert. Denies any complaints. According to nursing staff , patient has been having visual hallucinations. Patient denies that he is withdrawing. He says his last alcohol drink was about 4 days back. Denies any recent drug abuse. - Constitutional Vitals: Temp Pulse Resp BP Pulse Ox 98.0 F 121 18 146/96 89 L 11/27/16 08:00 11/27/16 08:30 11/27/16 08:30 11/27/16 08:30 11/27/16 08:30 General appearance: Present: cooperative, disheveled, A&O X 3, answers questions appropriately Exam: Moderate distress - Respiratory Respiratory exam: Present: CTAB. Absent: accessory muscle use, rales, rhonchi, wheezes - Cardiovascular Cardiovascular exam: Present: RRR, +S1, +S2, tachycardia. Absent: diastolic murmur, gallop, rubs, systolic murmur - GI/Abdominal GI/Abdominal exam: Present: normal bowel sounds, soft, no peritoneal signs. Absent: distended, tenderness - Extremities Exam Extremities exam: Present: warm, radial pulses palpable and symetrical. Absent : calf tenderness, cyanotic, pedal edema - Neurological Exam Neurological exam: Present: oriented X3, no focal deficits, strengths equal and symetr throughout. Absent: facial droop, speech deficit Additional comments: Tremors present - Psychiatric Psychiatric exam: Present: anxious - Skin Skin exam: Present: dry, intact Additional comments: Excessive sweating Internal Medicine: Result - Labs CBC & Chem 7: 11/27/16 04:07 11/27/16 04:07 Labs: Short CBC 11/27/16 Range/Units 04:07 WBC 18.4 H (4.3-11.1) K/mcL Hgb 12.7 L (12.9-16.9) g/dL Hct 38.9 (37.5-50.1) % Plt Count 217 (140-400) K/mcL Neutrophils # 15.4 H (1.6-8.9) K/mcL BMP 11/27/16 04:07 Sodium 139 Potassium 4.1 Chloride 103 Carbon Dioxide 26 BUN 16 Creatinine 0.82 Glucose 156 H Calcium 8.8 - ABG Interpretation ABG results: ABG ABG pH 7.43 pH Units (7.32-7.45) 11/25/16 00:34 ABG pCO2 45 mmHg (35-45) 11/25/16 00:34 ABG pO2 56 mmHg (85-104) L 11/25/16 00:34 ABG O2 Saturation 90 % (95-98) L 11/25/16 00:34 PT/INR, D-dimer D-Dimer 1282 ng/mLFEU (0-500) H 11/25/16 00:40 Consult Discharge Plan - Plan Referrals: Isauro Denson MD [Primary Care Provider] - - Attending Attestation This document has been at least partially created by [email or web address] recognition technology by Dr. Crespo. Errors in grammar, wording or other phrases may exist. If errors are found after the documentation is signed, they will be addressed individually in the addendum section of this document when appropriate. Medical Decision Making - MDM Narrative Medical decision making narrative: High risk for complications due to alcohol withdrawal and intravenous benzodiazepine use - Medical Records Medical records reviewed: Yes I reviewed the patient's medical records. - Lab Data Lab results reviewed: Yes I reviewed the patient's lab results. Result diagrams: 11/27/16 04:07 11/27/16 04:07 Lab Results 11/26/16 11/27/16 11/27/16 Range/Units 20:10 04:07 04:07 WBC 18.4 H (4.3-11.1) K/mcL RBC 4.50 (4.19-5.50) M/mcL Hgb 12.7 L (12.9-16.9) g/dL Hct 38.9 (37.5-50.1) % MCV 86.4 (83.0-100.0) fL MCH 28.2 (28.0-33.3) pg MCHC 32.6 (31.6-35.5) g/dL RDW 17.1 H (11.5-14.5) % Plt Count 217 (140-400) K/mcL MPV 10.4 (9.4-12.4) fL Immature Gran % 1.0 (0-4) % Seg Neutrophils % 83.8 % Lymphocytes % 8.1 % Monocytes % 7.0 % Eosinophils % 0.0 % Basophils % 0.1 % Neutrophils # 15.4 H (1.6-8.9) K/mcL Lymphocytes # 1.5 (0.6-4.6) K/mcL Monocytes # 1.3 (0.0-1.3) K/mcL Eosinophils # 0.0 (0.0-0.6) K/mcL Basophils # 0.0 (0.0-0.2) K/mcL Sodium 139 (136-145) mEq/L Potassium 4.1 (3.5-4.5) mEq/L Chloride 103 (98-109) mEq/L Carbon Dioxide 26 (19-29) mEq/L BUN 16 (8-26) mg/dL Creatinine 0.82 (0.72-1.25) mg/dL Est GFR ( Amer) > 60 (> 60) Est GFR (Non-Af Amer) > 60 (> 60) BUN/Creatinine Ratio 20 (6-26) Glucose 156 H (70-99) mg/dL POC Glucose 107 H (58-89) Calculated Osmolality 292 (280-300) Calcium 8.8 (8.6-10.8) mg/dL
[2016-11-27] MEDS ORDERED: Ipratropium/Albuterol Neb 3 ML IH PRN (09:46)
[2016-11-27] MEDS: *HR* Amiodarone 200 MG TABLET PO SCH (11:21)
[2016-11-27] MEDS: Vancomycin 1,500 MG in D5% in Water 250 ML IVPB SCH (11:21)
[2016-11-27] MEDS ORDERED: *HR* LORazepam 2 MG/ML VIAL IVP PRN ×2 (22:57)
[2016-11-27] MEDS ORDERED: PHENobarbital 65 MG/ML VIAL IM STA (22:59)
[2016-11-27] MEDS: Mirtazapine 15 MG TABLET PO SCH (23:48)
[2016-11-28] MEDS: Piperacillin/Tazobactam 3.375 GM in D5% in Water (Mini-Bag+) 100 ML IVPB SCH ×2 (00:42→08:21)
[2016-11-28] MEDS: Vancomycin 1,500 MG in D5% in Water 250 ML IVPB SCH (01:13)
[2016-11-28 04:17] LABS: Basophils # 0.1 K/mcL (0.0-0.2); Basophils % 0.3 %; Hematocrit 42.6 % (37.5-50.1); Hemoglobin 14.1 g/dL (12.9-16.9); Immature Granulocytes % 1.3 % (0-4); Lymphocytes # 2.5 K/mcL (0.6-4.6); Lymphocytes % 13.9 %; Mean Corpuscular HGB Conc 33.1 g/dL (31.6-35.5); Mean Corpuscular Hemoglobin 28.4 pg (28.0-33.3); Mean Corpuscular Volume 85.7 fL (83.0-100.0); Monocytes # 1.3 K/mcL (0.0-1.3); Monocytes % 7.2 %; Neutrophils # 13.9 K/mcL (1.6-8.9); Platelet Count 281 K/mcL (140-400); Red Blood Count 4.97 M/mcL (4.19-5.50); Red Cell Distribution Width 17.2 % (11.5-14.5); Segmented Neutrophils % 77.3 %
[2016-11-28 04:35] LABS: BUN/Creatinine Ratio 23 (6-26); Blood Urea Nitrogen 20 mg/dL (8-26); Calcium 8.6 mg/dL (8.6-10.8); Carbon Dioxide 28 mEq/L (19-29); Chloride 102 mEq/L (98-109); Glucose 152 mg/dL (70-99); Osmolality,Calculated 292 (280-300); Sodium 138 mEq/L (136-145); eGFR For African Americans > 60 (> 60); eGFR For Non-African Americans > 60 (> 60)
[2016-11-28 04:41] LABS: Potassium 4.1 mEq/L (3.5-4.5)
[2016-11-28] MEDS: Famotidine 20 MG/2 ML VIAL IVP SCH ×2 (05:37→17:29)
[2016-11-28] MEDS: Insulin LISPRO 300 UNITS/3 ML VIAL SQ SCH ×4 (08:18→22:08)
[2016-11-28] MEDS: Vitamin B Complex/Vit C/Vit E 1 EACH TABLET PO SCH (08:20)
[2016-11-28] MEDS: Thiamine (B-1) 100 MG TABLET PO SCH (08:20)
[2016-11-28] MEDS: Diltiazem CD (24hr) 180 MG CAPSULE PO SCH (08:20)
[2016-11-28] MEDS: Aspirin 81 MG TAB.CHEW PO SCH (08:21)
[2016-11-28] MEDS: predniSONE 20 MG TABLET PO SCH (08:21)
[2016-11-28] MEDS: APIXABAN 5 MG TABLET PO SCH ×2 (08:21→22:08)
[2016-11-28] MEDS: Lactobacillus 1 EACH CAP.SPRINK PO SCH ×2 (08:21→22:08)
[2016-11-28] MEDS: *HR* Amiodarone 200 MG TABLET PO SCH (08:21)
[2016-11-28] MEDS: Folic Acid 1 MG TABLET PO SCH (08:21)
[2016-11-28] MEDS: Nicotine 21 MG PATCH.TD24 TD SCH (08:28)
[2016-11-28] MEDS ORDERED: Aminoglycoside Consult 1 EACH MC ONE (08:45)
[2016-11-28] MEDS ORDERED: PHENobarbital 32.4 MG TABLET PO SCH (09:00)
--- NOTE | 2016-11-28 09:12 | Internal Med Progress Note ---
Date of Encounter: 11/28/16 Time of Encounter: 08:45 - Assessment and plan (1) Pneumonia Current Visit: Yes Status: Acute Assessment and plan: Clinically better. White count remains elevated likely due to steroid use. Qualifiers: Pneumonia type: due to unspecified organism Laterality: left Lung location: unspecified part of lung Qualified Code(s): J18.9 - Pneumonia, unspecified organism (2) Alcohol withdrawal delirium Current Visit: Yes Status: Acute Assessment and plan: Improving. We will start Librium. Continue Ativan IV as needed. Continue to monitor per [facility] protocol (3) Atrial flutter Current Visit: Yes Status: Chronic Assessment and plan: Rate controlled. Patient back on the amiodarone. Anticoagulation with Eliquis Qualifiers: Atrial flutter type: atypical Qualified Code(s): I48.4 - Atypical atrial flutter (4) COPD (chronic obstructive pulmonary disease) Current Visit: Yes Status: Acute Qualifiers: COPD type: COPD with acute exacerbation Qualified Code(s): J44.1 - Chronic obstructive pulmonary disease with (acute) exacerbation (5) Diabetes Current Visit: Yes Status: Chronic Assessment and plan: Controlled. Continue current insulin regimen Qualifiers: Diabetes mellitus type: type 2 Diabetes mellitus complication status: with unspecified complications Diabetes mellitus equipment operator intermodal yard insulin use: without equipment operator intermodal yard use Qualified Code(s): E11.8 - Type 2 diabetes mellitus with unspecified complications (6) Elevated troponin Current Visit: Yes Status: Acute (7) Respiratory failure Current Visit: Yes Status: Acute Assessment and plan: Improving. Wean FiO2 as tolerated. Incentive spirometry. Qualifiers: Chronicity: acute on chronic Respiratory failure complication: hypoxia Qualified Code(s): J96.21 - Acute and chronic respiratory failure with hypoxia (8) Tobacco abuse Current Visit: Yes Status: Acute (9) CAD (coronary artery disease) Current Visit: No Status: Chronic Assessment and plan: Continue aspirin. Also on beta lonnie Qualifiers: Coronary Disease-Associated Artery/Lesion type: [place] artery [place] vs. transplanted heart: [place] heart Associated angina: without angina Qualified Code(s): I25.10 - Atherosclerotic heart disease of [place] coronary artery without angina pectoris (10) Alcoholism Current Visit: No Status: Chronic Assessment and plan: exhaust worker consulted. Counseled about cessation. - Subjective Interval history: Patient feels better today. Denies any shortness of breath. No chest pain. He required restraints again yesterday. However, the restraints are being removed to see the patient continues to improve. - Constitutional Vitals: Temp Pulse Resp BP Pulse Ox 98.1 F 57 16 118/77 94 L 11/28/16 07:51 11/28/16 08:00 11/28/16 07:51 11/28/16 08:00 11/28/16 08:00 General appearance: Present: cooperative, disheveled, A&O X 3, answers questions appropriately - Neck Neck exam general surgery: Present: supple, trachea midline. Absent: lymphadenopathy - Respiratory Respiratory exam: Present: CTAB, prolonged expiratory phase. Absent: accessory muscle use, rales, rhonchi, wheezes - Cardiovascular Cardiovascular exam: Present: RRR, +S1, +S2. Absent: diastolic murmur, gallop, rubs, systolic murmur - GI/Abdominal GI/Abdominal exam: Present: normal bowel sounds, soft, no peritoneal signs. Absent: distended, tenderness - Extremities Exam Extremities exam: Present: warm, radial pulses palpable and symetrical. Absent : calf tenderness, cyanotic, pedal edema - Neurological Exam Neurological exam: Present: oriented X3, no focal deficits, strengths equal and symetr throughout. Absent: facial droop, speech deficit Additional comments: No tremors. - Skin Skin exam: Present: dry, intact Internal Medicine: Result - Labs CBC & Chem 7: 11/28/16 04:02 11/28/16 04:02 Labs: Short CBC 11/28/16 Range/Units 04:02 WBC 18.0 H (4.3-11.1) K/mcL Hgb 14.1 (12.9-16.9) g/dL Hct 42.6 (37.5-50.1) % Plt Count 281 (140-400) K/mcL Neutrophils # 13.9 H (1.6-8.9) K/mcL BMP 11/28/16 04:02 Sodium 138 Potassium 4.1 Chloride 102 Carbon Dioxide 28 BUN 20 Creatinine 0.86 Glucose 152 H Calcium 8.6 - ABG Interpretation ABG results: ABG ABG pH 7.43 pH Units (7.32-7.45) 11/25/16 00:34 ABG pCO2 45 mmHg (35-45) 11/25/16 00:34 ABG pO2 56 mmHg (85-104) L 11/25/16 00:34 ABG O2 Saturation 90 % (95-98) L 11/25/16 00:34 PT/INR, D-dimer D-Dimer 1282 ng/mLFEU (0-500) H 11/25/16 00:40 Consult Discharge Plan - Plan Referrals: Isauro Denson MD [Primary Care Provider] - - Attending Attestation This document has been at least partially created by [employer] recognition technology by Dr. Crespo. Errors in grammar, wording or other phrases may exist. If errors are found after the documentation is signed, they will be addressed individually in the addendum section of this document when appropriate. Medical Decision Making - MDM Narrative Medical decision making narrative: High risk for complications - Lab Data Result diagrams: 11/28/16 04:02 11/28/16 04:02 Lab Results 11/26/16 11/27/16 11/27/16 Range/Units 20:10 04:07 04:07 WBC 18.4 H (4.3-11.1) K/mcL RBC 4.50 (4.19-5.50) M/mcL Hgb 12.7 L (12.9-16.9) g/dL Hct 38.9 (37.5-50.1) % MCV 86.4 (83.0-100.0) fL MCH 28.2 (28.0-33.3) pg MCHC 32.6 (31.6-35.5) g/dL RDW 17.1 H (11.5-14.5) % Plt Count 217 (140-400) K/mcL MPV 10.4 (9.4-12.4) fL Immature Gran % 1.0 (0-4) % Seg Neutrophils % 83.8 % Lymphocytes % 8.1 % Monocytes % 7.0 % Eosinophils % 0.0 % Basophils % 0.1 % Neutrophils # 15.4 H (1.6-8.9) K/mcL Lymphocytes # 1.5 (0.6-4.6) K/mcL Monocytes # 1.3 (0.0-1.3) K/mcL Eosinophils # 0.0 (0.0-0.6) K/mcL Basophils # 0.0 (0.0-0.2) K/mcL Sodium 139 (136-145) mEq/L Potassium 4.1 (3.5-4.5) mEq/L Chloride 103 (98-109) mEq/L Carbon Dioxide 26 (19-29) mEq/L BUN 16 (8-26) mg/dL Creatinine 0.82 (0.72-1.25) mg/dL Est GFR ( Amer) > 60 (> 60) Est GFR (Non-Af Amer) > 60 (> 60) BUN/Creatinine Ratio 20 (6-26) Glucose 156 H (70-99) mg/dL POC Glucose 107 H (58-89) Calculated Osmolality 292 (280-300) Calcium 8.8 (8.6-10.8) mg/dL Vancomycin Trough (10-20) mcg/mL 11/27/16 11/27/16 11/27/16 Range/Units 07:31 11:19 15:53 WBC (4.3-11.1) K/mcL RBC (4.19-5.50) M/mcL Hgb (12.9-16.9) g/dL Hct (37.5-50.1) % MCV (83.0-100.0) fL MCH (28.0-33.3) pg MCHC (31.6-35.5) g/dL RDW (11.5-14.5) % Plt Count (140-400) K/mcL MPV (9.4-12.4) fL Immature Gran % (0-4) % Seg Neutrophils % % Lymphocytes % % Monocytes % % Eosinophils % % Basophils % % Neutrophils # (1.6-8.9) K/mcL Lymphocytes # (0.6-4.6) K/mcL Monocytes # (0.0-1.3) K/mcL Eosinophils # (0.0-0.6) K/mcL Basophils # (0.0-0.2) K/mcL Sodium (136-145) mEq/L Potassium (3.5-4.5) mEq/L Chloride (98-109) mEq/L Carbon Dioxide (19-29) mEq/L BUN (8-26) mg/dL Creatinine (0.72-1.25) mg/dL Est GFR ( Amer) (> 60) Est GFR (Non-Af Amer) (> 60) BUN/Creatinine Ratio (6-26) Glucose (70-99) mg/dL POC Glucose 148 H 168 H 137 H (58-89) Calculated Osmolality (280-300) Calcium (8.6-10.8) mg/dL Vancomycin Trough (10-20) mcg/mL 11/27/16 11/27/16 11/28/16 Range/Units 20:24 22:25 04:02 WBC 18.0 H (4.3-11.1) K/mcL RBC 4.97 (4.19-5.50) M/mcL Hgb 14.1 (12.9-16.9) g/dL Hct 42.6 (37.5-50.1) % MCV 85.7 (83.0-100.0) fL MCH 28.4 (28.0-33.3) pg MCHC 33.1 (31.6-35.5) g/dL RDW 17.2 H (11.5-14.5) % Plt Count 281 (140-400) K/mcL MPV 11.0 (9.4-12.4) fL Immature Gran % 1.3 (0-4) % Seg Neutrophils % 77.3 % Lymphocytes % 13.9 % Monocytes % 7.2 % Eosinophils % 0.0 % Basophils % 0.3 % Neutrophils # 13.9 H (1.6-8.9) K/mcL Lymphocytes # 2.5 (0.6-4.6) K/mcL Monocytes # 1.3 (0.0-1.3) K/mcL Eosinophils # 0.0 (0.0-0.6) K/mcL Basophils # 0.1 (0.0-0.2) K/mcL Sodium (136-145) mEq/L Potassium (3.5-4.5) mEq/L Chloride (98-109) mEq/L Carbon Dioxide (19-29) mEq/L BUN (8-26) mg/dL Creatinine (0.72-1.25) mg/dL Est GFR ( Amer) (> 60) Est GFR (Non-Af Amer) (> 60) BUN/Creatinine Ratio (6-26) Glucose (70-99) mg/dL POC Glucose 139 H (58-89) Calculated Osmolality (280-300) Calcium (8.6-10.8) mg/dL Vancomycin Trough 13.7 (10-20) mcg/mL 11/28/16 Range/Units 04:02 WBC (4.3-11.1) K/mcL RBC (4.19-5.50) M/mcL Hgb (12.9-16.9) g/dL Hct (37.5-50.1) % MCV (83.0-100.0) fL MCH (28.0-33.3) pg MCHC (31.6-35.5) g/dL RDW (11.5-14.5) % Plt Count (140-400) K/mcL MPV (9.4-12.4) fL Immature Gran % (0-4) % Seg Neutrophils % % Lymphocytes % % Monocytes % % Eosinophils % % Basophils % % Neutrophils # (1.6-8.9) K/mcL Lymphocytes # (0.6-4.6) K/mcL Monocytes # (0.0-1.3) K/mcL Eosinophils # (0.0-0.6) K/mcL Basophils # (0.0-0.2) K/mcL Sodium 138 (136-145) mEq/L Potassium 4.1 (3.5-4.5) mEq/L Chloride 102 (98-109) mEq/L Carbon Dioxide 28 (19-29) mEq/L BUN 20 (8-26) mg/dL Creatinine 0.86 (0.72-1.25) mg/dL Est GFR ( Amer) > 60 (> 60) Est GFR (Non-Af Amer) > 60 (> 60) BUN/Creatinine Ratio 23 (6-26) Glucose 152 H (70-99) mg/dL POC Glucose (58-89) Calculated Osmolality 292 (280-300) Calcium 8.6 (8.6-10.8) mg/dL Vancomycin Trough (10-20) mcg/mL
[2016-11-28] MEDS ORDERED: Vancomycin 1,750 MG in D5% in Water 500 ML IVPB SCH (13:00)
[2016-11-28] MEDS ORDERED: 0.9 % Sodium Chloride 1,000 ML IVC SCH (13:45)
--- NOTE | 2016-11-28 14:24 | Electrocardiograph Report ---
[facility] Test Date: 2016-11-27 Pat Name: SULEMA CARL Department: 110 Room: 2N10 Gender: M Operations Engineer: [facility] : 1955 Requested By: Rell Crespo Order Number: [id number] Reading MD: Isauro Denson MD Measurements Intervals [place] Rate: 89 P: [place]: 0 QRS: -47 QRSD: 118 T: -41 QT: 438 QTc: 485 Interpretive Statements ATRIAL FLUTTER WITH CONTROLLED RESPONSE LEFT ANTERIOR FASCICULAR BLOCK PROLONGED QT INTERVAL Electronically Signed On 11-28-16 14:24:13 EST by Isauro Denson MD
[2016-11-28 17:22] LABS: Alanine Aminotransferase 60 Units/L (0-55); Albumin 2.8 g/dL (3.5-5.0); Albumin/Globulin Ratio 0.7 (1.1-2.2); Alkaline Phosphatase 94 Units/L (38-126); Aspartate Amino Transferase 52 Units/L (5-34); BUN/Creatinine Ratio 26 (6-26); Bilirubin,Total 0.7 mg/dL (0.2-1.2); Blood Urea Nitrogen 24 mg/dL (8-26); Calcium 8.8 mg/dL (8.6-10.8); Carbon Dioxide 22 mEq/L (19-29); Chloride 105 mEq/L (98-109); Glucose 160 mg/dL (70-99); Osmolality,Calculated 291 (280-300); Potassium 4.6 mEq/L (3.5-4.5); Sodium 137 mEq/L (136-145); Total Protein 6.8 g/dL (6.0-8.3); eGFR For African Americans > 60 (> 60); eGFR For Non-African Americans > 60 (> 60)
[2016-11-28] MEDS: Mirtazapine 15 MG TABLET PO SCH (22:07)
[2016-11-28] MEDS: Doxycycline 100 MG CAPSULE PO SCH (22:08)
[2016-11-29] MEDS: *HR* LORazepam 2 MG/ML VIAL IVP PRN ×2 (01:28→04:43)
[2016-11-29] MEDS: *HR* HYDROcodone/Acet 5/325 mg TABLET PO PRN (04:41)
[2016-11-29] MEDS: Famotidine 20 MG/2 ML VIAL IVP SCH (04:55)
[2016-11-29] MEDS ORDERED: Haloperidol Lactate 5 MG/ML VIAL IM PRN (05:36)
[2016-11-29] MEDS ORDERED: Haloperidol Lactate 5 MG/ML VIAL ONE (05:40)
[2016-11-29 07:52] LABS: Basophils % 0.4 %; Hematocrit 42.4 % (37.5-50.1); Hemoglobin 13.9 g/dL (12.9-16.9); Immature Granulocytes % 2.6 % (0-4); Mean Corpuscular HGB Conc 32.8 g/dL (31.6-35.5); Mean Corpuscular Hemoglobin 27.8 pg (28.0-33.3); Mean Corpuscular Volume 84.8 fL (83.0-100.0); Mean Platelet Volume 9.3 fL (9.4-12.4); Platelet Count 234 K/mcL (140-400); Red Cell Distribution Width 16.1 % (11.5-14.5)
[2016-11-29 07:53] LABS: Basophils # 0.1 K/mcL (0.0-0.2); Monocytes # 1.5 K/mcL (0.0-1.3); Neutrophils # 13.8 K/mcL (1.6-8.9)
[2016-11-29 08:01] LABS: BUN/Creatinine Ratio 25 (6-26); Blood Urea Nitrogen 22 mg/dL (8-26); Calcium 8.6 mg/dL (8.6-10.8); Carbon Dioxide 26 mEq/L (19-29); Chloride 105 mEq/L (98-109); Glucose 154 mg/dL (70-99); Osmolality,Calculated 294 (280-300); Potassium 3.7 mEq/L (3.5-4.5); Sodium 139 mEq/L (136-145); eGFR For African Americans > 60 (> 60); eGFR For Non-African Americans > 60 (> 60)
[2016-11-29] MEDS: Folic Acid 1 MG TABLET PO SCH (08:55)
[2016-11-29] MEDS: Vitamin B Complex/Vit C/Vit E 1 EACH TABLET PO SCH (08:55)
[2016-11-29] MEDS: predniSONE 20 MG TABLET PO SCH (08:55)
[2016-11-29] MEDS: APIXABAN 5 MG TABLET PO SCH ×2 (08:56→20:56)
[2016-11-29] MEDS: Nicotine 21 MG PATCH.TD24 TD SCH (08:56)
[2016-11-29] MEDS: Doxycycline 100 MG CAPSULE PO SCH ×2 (08:56→20:55)
[2016-11-29] MEDS: Diltiazem CD (24hr) 180 MG CAPSULE PO SCH (08:56)
[2016-11-29] MEDS: Lactobacillus 1 EACH CAP.SPRINK PO SCH ×2 (08:56→20:59)
[2016-11-29] MEDS: Thiamine (B-1) 100 MG TABLET PO SCH (08:56)
[2016-11-29] MEDS: Aspirin 81 MG TAB.CHEW PO SCH (08:57)
[2016-11-29] MEDS: *HR* Amiodarone 200 MG TABLET PO SCH (08:58)
[2016-11-29] MEDS: Insulin LISPRO 300 UNITS/3 ML VIAL SQ SCH ×4 (08:58→20:59)
--- NOTE | 2016-11-29 11:30 | Internal Med Progress Note ---
Date of Encounter: 11/29/16 Time of Encounter: 11:28 - Assessment and plan (1) Pneumonia Current Visit: Yes Status: Acute Assessment and plan: Improving clinically. WBC count remains elevated likely due to steroid use. On doxycycline and Augmentin. Will continue to complete 14 day treatment course. Qualifiers: Pneumonia type: due to unspecified organism Laterality: left Lung location: unspecified part of lung Qualified Code(s): J18.9 - Pneumonia, unspecified organism (2) Alcohol withdrawal delirium Current Visit: Yes Status: Acute Assessment and plan: Resolving. On Librium orally. Will stop Ativan. Haldol when necessary for agitation. (3) Atrial flutter Current Visit: Yes Status: Chronic Assessment and plan: Rate controlled. On amiodarone. Eliquis for anticoagulation Qualifiers: Atrial flutter type: atypical Qualified Code(s): I48.4 - Atypical atrial flutter (4) COPD (chronic obstructive pulmonary disease) Current Visit: Yes Status: Acute Assessment and plan: Continue breathing treatments as needed. Taper steroids over 2 weeks. Qualifiers: COPD type: COPD with acute exacerbation Qualified Code(s): J44.1 - Chronic obstructive pulmonary disease with (acute) exacerbation (5) Diabetes Current Visit: Yes Status: Chronic Assessment and plan: Controlled. Qualifiers: Diabetes mellitus type: type 2 Diabetes mellitus complication status: with unspecified complications Diabetes mellitus snf insulin use: without snf use Qualified Code(s): E11.8 - Type 2 diabetes mellitus with unspecified complications (6) Elevated troponin Current Visit: Yes Status: Acute (7) Respiratory failure Current Visit: Yes Status: Acute Assessment and plan: Acute respiratory failure is improving. Patient is currently on 1 L O2 supplementation via nasal cannula. Qualifiers: Chronicity: acute on chronic Respiratory failure complication: hypoxia Qualified Code(s): J96.21 - Acute and chronic respiratory failure with hypoxia (8) Tobacco abuse Current Visit: Yes Status: Acute Assessment and plan: Patient has been counseled about cessation. Has nicotine patch. (9) CAD (coronary artery disease) Current Visit: No Status: Chronic Assessment and plan: With mild troponin elevation. Cardiology recommends no further evaluation at this time. Patient is on aspirin and beta lonnie Qualifiers: Coronary Disease-Associated Artery/Lesion type: [place] artery [place] vs. transplanted heart: [place] heart Associated angina: without angina Qualified Code(s): I25.10 - Atherosclerotic heart disease of [place] coronary artery without angina pectoris (10) Alcoholism Current Visit: No Status: Chronic Assessment and plan: Counseled. Encouraged to seek rehabilitation programs. - Subjective Interval history: Patient is doing better today. Denies any new complaints. Not having any fevers. Respiratory status is improving. - Constitutional Vitals: Temp Pulse Resp BP Pulse Ox 97.6 F 68 20 114/66 94 L 11/29/16 07:39 11/29/16 10:00 11/29/16 10:00 11/29/16 10:00 11/29/16 10:00 General appearance: Present: cooperative, disheveled, A&O X 3, answers questions appropriately - Neck Neck exam general surgery: Present: supple, trachea midline. Absent: lymphadenopathy - Respiratory Respiratory exam: Present: prolonged expiratory phase, wheezes. Absent: accessory muscle use, rales, rhonchi - GI/Abdominal GI/Abdominal exam: Present: normal bowel sounds, soft, no peritoneal signs. Absent: distended, tenderness - Extremities Exam Extremities exam: Present: warm, radial pulses palpable and symetrical. Absent : calf tenderness, cyanotic, pedal edema - Neurological Exam Neurological exam: Present: CN II-XII intact, oriented X3, no focal deficits. Absent: pronater drift, facial droop, speech deficit Additional comments: No tremors Internal Medicine: Result - Labs CBC & Chem 7: 11/29/16 07:41 11/29/16 07:41 Labs: Short CBC 11/29/16 Range/Units 07:41 WBC 19.0 H (4.3-11.1) K/mcL Hgb 13.9 (12.9-16.9) g/dL Hct 42.4 (37.5-50.1) % Plt Count 234 (140-400) K/mcL Neutrophils # 13.8 H (1.6-8.9) K/mcL BMP 11/28/16 11/29/16 16:37 07:41 Sodium 137 139 Potassium 4.6 H 3.7 Chloride 105 105 Carbon Dioxide 22 26 BUN 24 22 Creatinine 0.94 0.87 Glucose 160 H 154 H Calcium 8.8 8.6 Liver Function 11/28/16 Range/Units 16:37 Total Bilirubin 0.7 (0.2-1.2) mg/dL AST 52 H (5-34) Units/L ALT 60 H (0-55) Units/L Alkaline Phosphatase 94 (38-126) Units/L Albumin 2.8 L (3.5-5.0) g/dL - ABG Interpretation ABG results: ABG ABG pH 7.43 pH Units (7.32-7.45) 11/25/16 00:34 ABG pCO2 45 mmHg (35-45) 11/25/16 00:34 ABG pO2 56 mmHg (85-104) L 11/25/16 00:34 ABG O2 Saturation 90 % (95-98) L 11/25/16 00:34 PT/INR, D-dimer D-Dimer 1282 ng/mLFEU (0-500) H 11/25/16 00:40 Consult Discharge Plan - Plan Referrals: Isauro Denson MD [Primary Care Provider] - - Attending Attestation This document has been at least partially created by [employer] recognition technology by Dr. Crespo. Errors in grammar, wording or other phrases may exist. If errors are found after the documentation is signed, they will be addressed individually in the addendum section of this document when appropriate. Medical Decision Making - MDM Narrative Medical decision making narrative: Moderate risk for complications - Lab Data Lab results reviewed: Yes I reviewed the patient's lab results. Result diagrams: 11/29/16 07:41 11/29/16 07:41 Lab Results 11/26/16 11/27/16 11/27/16 Range/Units 20:10 04:07 04:07 WBC 18.4 H (4.3-11.1) K/mcL RBC 4.50 (4.19-5.50) M/mcL Hgb 12.7 L (12.9-16.9) g/dL Hct 38.9 (37.5-50.1) % MCV 86.4 (83.0-100.0) fL MCH 28.2 (28.0-33.3) pg MCHC 32.6 (31.6-35.5) g/dL RDW 17.1 H (11.5-14.5) % Plt Count 217 (140-400) K/mcL MPV 10.4 (9.4-12.4) fL Immature Gran % 1.0 (0-4) % Seg Neutrophils % 83.8 % Lymphocytes % 8.1 % Monocytes % 7.0 % Eosinophils % 0.0 % Basophils % 0.1 % Neutrophils # 15.4 H (1.6-8.9) K/mcL Lymphocytes # 1.5 (0.6-4.6) K/mcL Monocytes # 1.3 (0.0-1.3) K/mcL Eosinophils # 0.0 (0.0-0.6) K/mcL Basophils # 0.0 (0.0-0.2) K/mcL Sodium 139 (136-145) mEq/L Potassium 4.1 (3.5-4.5) mEq/L Chloride 103 (98-109) mEq/L Carbon Dioxide 26 (19-29) mEq/L BUN 16 (8-26) mg/dL Creatinine 0.82 (0.72-1.25) mg/dL Est GFR ( Amer) > 60 (> 60) Est GFR (Non-Af Amer) > 60 (> 60) BUN/Creatinine Ratio 20 (6-26) Glucose 156 H (70-99) mg/dL POC Glucose 107 H (58-89) Calculated Osmolality 292 (280-300) Calcium 8.8 (8.6-10.8) mg/dL Total Bilirubin (0.2-1.2) mg/dL AST (5-34) Units/L ALT (0-55) Units/L Alkaline Phosphatase (38-126) Units/L Serum Total Protein (6.0-8.3) g/dL Albumin (3.5-5.0) g/dL Globulin (2.4-3.5) g/dL Albumin/Globulin Ratio (1.1-2.2) Vancomycin Trough (10-20) mcg/mL 11/27/16 11/27/16 11/27/16 Range/Units 07:31 11:19 15:53 WBC (4.3-11.1) K/mcL RBC (4.19-5.50) M/mcL Hgb (12.9-16.9) g/dL Hct (37.5-50.1) % MCV (83.0-100.0) fL MCH (28.0-33.3) pg MCHC (31.6-35.5) g/dL RDW (11.5-14.5) % Plt Count (140-400) K/mcL MPV (9.4-12.4) fL Immature Gran % (0-4) % Seg Neutrophils % % Lymphocytes % % Monocytes % % Eosinophils % % Basophils % % Neutrophils # (1.6-8.9) K/mcL Lymphocytes # (0.6-4.6) K/mcL Monocytes # (0.0-1.3) K/mcL Eosinophils # (0.0-0.6) K/mcL Basophils # (0.0-0.2) K/mcL Sodium (136-145) mEq/L Potassium (3.5-4.5) mEq/L Chloride (98-109) mEq/L Carbon Dioxide (19-29) mEq/L BUN (8-26) mg/dL Creatinine (0.72-1.25) mg/dL Est GFR ( Amer) (> 60) Est GFR (Non-Af Amer) (> 60) BUN/Creatinine Ratio (6-26) Glucose (70-99) mg/dL POC Glucose 148 H 168 H 137 H (58-89) Calculated Osmolality (280-300) Calcium (8.6-10.8) mg/dL Total Bilirubin (0.2-1.2) mg/dL AST (5-34) Units/L ALT (0-55) Units/L Alkaline Phosphatase (38-126) Units/L Serum Total Protein (6.0-8.3) g/dL Albumin (3.5-5.0) g/dL Globulin (2.4-3.5) g/dL Albumin/Globulin Ratio (1.1-2.2) Vancomycin Trough (10-20) mcg/mL 11/27/16 11/27/16 11/28/16 Range/Units 20:24 22:25 04:02 WBC 18.0 H (4.3-11.1) K/mcL RBC 4.97 (4.19-5.50) M/mcL Hgb 14.1 (12.9-16.9) g/dL Hct 42.6 (37.5-50.1) % MCV 85.7 (83.0-100.0) fL MCH 28.4 (28.0-33.3) pg MCHC 33.1 (31.6-35.5) g/dL RDW 17.2 H (11.5-14.5) % Plt Count 281 (140-400) K/mcL MPV 11.0 (9.4-12.4) fL Immature Gran % 1.3 (0-4) % Seg Neutrophils % 77.3 % Lymphocytes % 13.9 % Monocytes % 7.2 % Eosinophils % 0.0 % Basophils % 0.3 % Neutrophils # 13.9 H (1.6-8.9) K/mcL Lymphocytes # 2.5 (0.6-4.6) K/mcL Monocytes # 1.3 (0.0-1.3) K/mcL Eosinophils # 0.0 (0.0-0.6) K/mcL Basophils # 0.1 (0.0-0.2) K/mcL Sodium (136-145) mEq/L Potassium (3.5-4.5) mEq/L Chloride (98-109) mEq/L Carbon Dioxide (19-29) mEq/L BUN (8-26) mg/dL Creatinine (0.72-1.25) mg/dL Est GFR ( Amer) (> 60) Est GFR (Non-Af Amer) (> 60) BUN/Creatinine Ratio (6-26) Glucose (70-99) mg/dL POC Glucose 139 H (58-89) Calculated Osmolality (280-300) Calcium (8.6-10.8) mg/dL Total Bilirubin (0.2-1.2) mg/dL AST (5-34) Units/L ALT (0-55) Units/L Alkaline Phosphatase (38-126) Units/L Serum Total Protein (6.0-8.3) g/dL Albumin (3.5-5.0) g/dL Globulin (2.4-3.5) g/dL Albumin/Globulin Ratio (1.1-2.2) Vancomycin Trough 13.7 (10-20) mcg/mL 11/28/16 11/28/16 11/28/16 Range/Units 04:02 08:15 11:31 WBC (4.3-11.1) K/mcL RBC (4.19-5.50) M/mcL Hgb (12.9-16.9) g/dL Hct (37.5-50.1) % MCV (83.0-100.0) fL MCH (28.0-33.3) pg MCHC (31.6-35.5) g/dL RDW (11.5-14.5) % Plt Count (140-400) K/mcL MPV (9.4-12.4) fL Immature Gran % (0-4) % Seg Neutrophils % % Lymphocytes % % Monocytes % % Eosinophils % % Basophils % % Neutrophils # (1.6-8.9) K/mcL Lymphocytes # (0.6-4.6) K/mcL Monocytes # (0.0-1.3) K/mcL Eosinophils # (0.0-0.6) K/mcL Basophils # (0.0-0.2) K/mcL Sodium 138 (136-145) mEq/L Potassium 4.1 (3.5-4.5) mEq/L Chloride 102 (98-109) mEq/L Carbon Dioxide 28 (19-29) mEq/L BUN 20 (8-26) mg/dL Creatinine 0.86 (0.72-1.25) mg/dL Est GFR ( Amer) > 60 (> 60) Est GFR (Non-Af Amer) > 60 (> 60) BUN/Creatinine Ratio 23 (6-26) Glucose 152 H (70-99) mg/dL POC Glucose 110 H 151 H (58-89) Calculated Osmolality 292 (280-300) Calcium 8.6 (8.6-10.8) mg/dL Total Bilirubin (0.2-1.2) mg/dL AST (5-34) Units/L ALT (0-55) Units/L Alkaline Phosphatase (38-126) Units/L Serum Total Protein (6.0-8.3) g/dL Albumin (3.5-5.0) g/dL Globulin (2.4-3.5) g/dL Albumin/Globulin Ratio (1.1-2.2) Vancomycin Trough (10-20) mcg/mL 11/28/16 11/28/16 11/28/16 Range/Units 16:02 16:37 20:04 WBC (4.3-11.1) K/mcL RBC (4.19-5.50) M/mcL Hgb (12.9-16.9) g/dL Hct (37.5-50.1) % MCV (83.0-100.0) fL MCH (28.0-33.3) pg MCHC (31.6-35.5) g/dL RDW (11.5-14.5) % Plt Count (140-400) K/mcL MPV (9.4-12.4) fL Immature Gran % (0-4) % Seg Neutrophils % % Lymphocytes % % Monocytes % % Eosinophils % % Basophils % % Neutrophils # (1.6-8.9) K/mcL Lymphocytes # (0.6-4.6) K/mcL Monocytes # (0.0-1.3) K/mcL Eosinophils # (0.0-0.6) K/mcL Basophils # (0.0-0.2) K/mcL Sodium 137 (136-145) mEq/L Potassium 4.6 H (3.5-4.5) mEq/L Chloride 105 (98-109) mEq/L Carbon Dioxide 22 (19-29) mEq/L BUN 24 (8-26) mg/dL Creatinine 0.94 (0.72-1.25) mg/dL Est GFR ( Amer) > 60 (> 60) Est GFR (Non-Af Amer) > 60 (> 60) BUN/Creatinine Ratio 26 (6-26) Glucose 160 H (70-99) mg/dL POC Glucose 142 H 185 H (58-89) Calculated Osmolality 291 (280-300) Calcium 8.8 (8.6-10.8) mg/dL Total Bilirubin 0.7 (0.2-1.2) mg/dL AST 52 H (5-34) Units/L ALT 60 H (0-55) Units/L Alkaline Phosphatase 94 (38-126) Units/L Serum Total Protein 6.8 (6.0-8.3) g/dL Albumin 2.8 L (3.5-5.0) g/dL Globulin 4.0 H (2.4-3.5) g/dL Albumin/Globulin Ratio 0.7 L (1.1-2.2) Vancomycin Trough (10-20) mcg/mL 11/29/16 11/29/16 Range/Units 07:41 07:41 WBC 19.0 H (4.3-11.1) K/mcL RBC 5.00 (4.19-5.50) M/mcL Hgb 13.9 (12.9-16.9) g/dL Hct 42.4 (37.5-50.1) % MCV 84.8 (83.0-100.0) fL MCH 27.8 L (28.0-33.3) pg MCHC 32.8 (31.6-35.5) g/dL RDW 16.1 H (11.5-14.5) % Plt Count 234 (140-400) K/mcL MPV 9.3 L (9.4-12.4) fL Immature Gran % 2.6 (0-4) % Seg Neutrophils % 73.0 % Lymphocytes % 16.0 % Monocytes % 8.0 % Eosinophils % 0.0 % Basophils % 0.4 % Neutrophils # 13.8 H (1.6-8.9) K/mcL Lymphocytes # 3.0 (0.6-4.6) K/mcL Monocytes # 1.5 H (0.0-1.3) K/mcL Eosinophils # 0.0 (0.0-0.6) K/mcL Basophils # 0.1 (0.0-0.2) K/mcL Sodium 139 (136-145) mEq/L Potassium 3.7 (3.5-4.5) mEq/L Chloride 105 (98-109) mEq/L Carbon Dioxide 26 (19-29) mEq/L BUN 22 (8-26) mg/dL Creatinine 0.87 (0.72-1.25) mg/dL Est GFR ( Amer) > 60 (> 60) Est GFR (Non-Af Amer) > 60 (> 60) BUN/Creatinine Ratio 25 (6-26) Glucose 154 H (70-99) mg/dL POC Glucose (58-89) Calculated Osmolality 294 (280-300) Calcium 8.6 (8.6-10.8) mg/dL Total Bilirubin (0.2-1.2) mg/dL AST (5-34) Units/L ALT (0-55) Units/L Alkaline Phosphatase (38-126) Units/L Serum Total Protein (6.0-8.3) g/dL Albumin (3.5-5.0) g/dL Globulin (2.4-3.5) g/dL Albumin/Globulin Ratio (1.1-2.2) Vancomycin Trough (10-20) mcg/mL
[2016-11-29] MEDS: Famotidine 20 MG TABLET PO SCH (20:55)
[2016-11-29] MEDS: Mirtazapine 15 MG TABLET PO SCH (20:56)
[2016-11-30 06:25] LABS: Basophils # 0.1 K/mcL (0.0-0.2); Basophils % 0.7 %; Eosinophils % 0.1 %; Hemoglobin 14.2 g/dL (12.9-16.9); Immature Granulocytes % 4.6 % (0-4); Lymphocytes # 3.8 K/mcL (0.6-4.6); Lymphocytes % 21.5 %; Mean Corpuscular Hemoglobin 27.8 pg (28.0-33.3); Mean Corpuscular Volume 84.3 fL (83.0-100.0); Mean Platelet Volume 9.3 fL (9.4-12.4); Monocytes # 1.6 K/mcL (0.0-1.3); Monocytes % 9.3 %; Neutrophils # 11.2 K/mcL (1.6-8.9); Platelet Count 238 K/mcL (140-400); Red Cell Distribution Width 16.2 % (11.5-14.5); Segmented Neutrophils % 63.8 %
[2016-11-30] MEDS: Insulin LISPRO 300 UNITS/3 ML VIAL SQ SCH (07:31)
[2016-11-30] MEDS: Diltiazem CD (24hr) 180 MG CAPSULE PO SCH (07:43)
[2016-11-30] MEDS: Aspirin 81 MG TAB.CHEW PO SCH (07:43)
[2016-11-30] MEDS: Folic Acid 1 MG TABLET PO SCH (07:44)
[2016-11-30] MEDS: APIXABAN 5 MG TABLET PO SCH (07:44)
[2016-11-30] MEDS: Doxycycline 100 MG CAPSULE PO SCH (07:44)
[2016-11-30] MEDS: *HR* Amiodarone 200 MG TABLET PO SCH (07:44)
[2016-11-30] MEDS: Lactobacillus 1 EACH CAP.SPRINK PO SCH (07:44)
[2016-11-30] MEDS: Vitamin B Complex/Vit C/Vit E 1 EACH TABLET PO SCH (07:45)
[2016-11-30] MEDS: Nicotine 21 MG PATCH.TD24 TD SCH (07:45)
[2016-11-30] MEDS: Thiamine (B-1) 100 MG TABLET PO SCH (07:45)
[2016-11-30] MEDS: Famotidine 20 MG TABLET PO SCH (07:45)
[2016-11-30] MEDS: predniSONE 20 MG TABLET PO SCH (07:45)
[2016-11-30] MEDS: *HR* HYDROcodone/Acet 5/325 mg TABLET PO PRN (07:46)
[2016-11-30 11:07] VITALS: BP 138/74
--- NOTE | 2016-11-30 11:14 | Discharge Summary ---
Date of Encounter: 11/30/16 Time of Encounter: 10:30 - Discharge Diagnosis (1) Pneumonia Priority: Primary () Status: Acute Qualifiers: Pneumonia type: due to unspecified organism Laterality: left Lung location: unspecified part of lung Qualified Code(s): J18.9 - Pneumonia, unspecified organism (2) Alcohol withdrawal delirium Priority: Secondary Status: Resolved (3) Atrial flutter Priority: Secondary Status: Chronic Qualifiers: Atrial flutter type: atypical Qualified Code(s): I48.4 - Atypical atrial flutter (4) COPD (chronic obstructive pulmonary disease) Priority: Secondary Status: Acute Qualifiers: COPD type: COPD with acute exacerbation Qualified Code(s): J44.1 - Chronic obstructive pulmonary disease with (acute) exacerbation (5) Diabetes Priority: Secondary Status: Chronic Qualifiers: Diabetes mellitus type: type 2 Diabetes mellitus complication status: with unspecified complications Diabetes mellitus longterm insulin use: without longterm use Qualified Code(s): E11.8 - Type 2 diabetes mellitus with unspecified complications (6) Elevated troponin Priority: Secondary Status: Acute (7) Respiratory failure Priority: Secondary Status: Acute Qualifiers: Chronicity: acute on chronic Respiratory failure complication: hypoxia Qualified Code(s): J96.21 - Acute and chronic respiratory failure with hypoxia (8) Tobacco abuse Priority: Secondary Status: Acute (9) CAD (coronary artery disease) Priority: Secondary Status: Chronic Qualifiers: Coronary Disease-Associated Artery/Lesion type: [place] artery [place] vs. transplanted heart: [place] heart Associated angina: without angina Qualified Code(s): I25.10 - Atherosclerotic heart disease of [place] coronary artery without angina pectoris (10) Alcoholism Priority: Secondary Status: Chronic - Discharge Medications Prescriptions: Amoxicillin/Clavulanate [Augmentin] 875 mg PO BIDWM #18 tablet Doxycycline 100 mg PO BID #18 capsule Folic Acid 1 mg PO DAILY #30 tablet Lactobacillus [Culturelle] 1 each PO BID #60 cap.sprink PredniSONE 10 mg PO DAILY 8 Days Thiamine (B-1) [Vitamin B-1] 100 mg PO DAILY #30 tablet Home Medications: Apixaban [Eliquis] 5 mg PO BID 06/22/15 [History] Diltiazem HCl [Cardizem Cd] 360 mg PO DAILY 06/22/15 [History] Metoprolol [Lopressor] 25 mg PO BID 06/22/15 [History] Quetiapine Fumarate [Seroquel] 200 mg PO HS 10/21/15 [History] Amiodarone [Cordarone] 200 mg PO DAILY 03/04/16 [History] Aspirin 81 mg PO DAILY 03/04/16 [History] Duloxetine [Cymbalta] 60 mg PO BID 03/04/16 [History] Mirtazapine [Remeron] 45 mg PO HS 03/04/16 [History] Docusate [Colace] 100 mg PO BID #30 capsule 03/06/16 [Rx] Furosemide [Lasix] 20 mg PO DAILY 11/25/16 [History] Cyclobenzaprine [Flexeril] 10 mg PO HS PRN 11/27/16 [History] Methocarbamol [Robaxin-750] 750 mg PO Q8H PRN 11/27/16 [History] Amoxicillin/Clavulanate [Augmentin] 875 mg PO BIDWM #18 tablet 11/30/16 [Rx] Doxycycline 100 mg PO BID #18 capsule 11/30/16 [Rx] Folic Acid 1 mg PO DAILY #30 tablet 11/30/16 [Rx] Lactobacillus [Culturelle] 1 each PO BID #60 cap.sprink 11/30/16 [Rx] PredniSONE 10 mg PO DAILY 8 Days 11/30/16 [Rx] Thiamine (B-1) [Vitamin B-1] 100 mg PO DAILY #30 tablet 11/30/16 [Rx] Allergies/Adverse Reactions: Allergies Tetanus Vaccines and Toxoid [Tetanus Vaccines & Toxoid] Adverse Reaction ( Intermediate, Verified 06/22/15 14:01) Fever PATIENT STATES HE EXPERIENCED A HIGH FEVER AND INABILITY TO GET OUT OF BED Procedures/tests Complete & Pending: Procedures Performed prior 72 hours Category Date Time Status ECG 12 lead ECG [ECG] Routine Y 11/27/16 14:57 Completed Date of admission: 11/26/16 11:10 Primary care physician: Isauro Denson MD Consults: 11/25/16 06:12 Consult to Nutrition [CONS] Routine Comment: Consulting Provider: NUTRITION Reason for Dietary Consult: MST Score Consult to [employer] [CONS] Routine Reason for SW Consult: Patient from long-term. Kristian Louise. 11/25/16 12:37 Consult to Speech Therapy [CONS] Routine Comment: Evaluate, develop and implement POC Reason for Consult: evalaute swallowing Call Completed: Yes 11/25/16 12:43 Consult to Physical Therapy [CONS] Routine Comment: Evaluate, develop and implement POC Discharging clinician: Rell Crespo Anticipated date of discharge: 11/30/16 - Patient Status Disposition: Home, Self-Care Condition: Fair - Discharge Instructions Instructions: Chronic Obstructive Pulmonary Disease (DC) Follow Up With: Isauro Denson MD [Primary Care Provider] - Hospital course: Mr. Gilliland is a 61 year old male with history of alcohol abuse, atrial flutter, COPD, diabetes mellitus, coronary artery disease was admitted here with acute respiratory failure related to COPD and pneumonia. He was treated with IV antibiotics, nebulizer treatments and intravenous steroids. His respiratory status improved with this treatment regimen but patient the absence of agitation and delirium suggestive of alcohol withdrawal delirium. Patient was treated for this with Ativan but he developed worsening of his agitation with Ativan. He responded well to Haldol. He has since been placed back on his usual psychotropic medications with improvement in his symptoms. At this time, is doing much better and is stable to be discharged home. He has been on room air overnight and is saturating 91%. He did have mild elevation in his troponins and renal insufficiency. Cardiology was consulted for this and believe this could be due to respiratory distress and did not believe further evaluation was needed as his echocardiogram did not show any changes compared to his previous echocardiogram and he had good ejection fraction. His renal insufficiency has also improved. Patient is stable to be discharged today. - Time Spent with Patient Total time spent providing and/or coordinating discharge services: Greater than 30 minutes (40 min) - Constitutional Vitals: Temp Pulse Resp BP Pulse Ox 98.1 F 64 18 138/74 91 L 11/30/16 11:07 11/30/16 11:07 11/30/16 11:07 11/30/16 11:07 11/30/16 11:07 General appearance: Present: cooperative, disheveled, A&O X 3, answers questions appropriately - Respiratory Respiratory exam: Present: CTAB. Absent: accessory muscle use, rales, rhonchi, wheezes - GI/Abdominal GI/Abdominal exam: Present: normal bowel sounds, soft, no peritoneal signs. Absent: distended, tenderness - Extremities Exam Extremities exam: Present: warm, radial pulses palpable and symetrical. Absent : calf tenderness, cyanotic, pedal edema - Neurological Exam Neurological exam: Present: alert, no focal deficits, strengths equal and symetr throughout. Absent: facial droop, speech deficit - Attending Attestation This document has been at least partially created by [employer] recognition technology by Dr. Crespo. Errors in grammar, wording or other phrases may exist. If errors are found after the documentation is signed, they will be addressed individually in the addendum section of this document when appropriate.
== END 2016-11-30 13:40 | disposition home or self-care (01) | DRG 140 ==
LOC: EMEROO 00:26 → 2NNU 00:26 → SUATTDRO 03:18 → 2NNU 04:40 → 2ANU 11-29 11:56
PROVIDERS: ADMIT Family Medicine; ATTEND Internal Medicine

== ENCOUNTER 2017-11-05 20:44 | Inpatient (IN) ==
--- NOTE | 2017-11-05 21:16 | Emergency Department Note ---
Disposition Clinical Impression: Suicidal ideation Alcohol dependence Qualifiers: Substance use status: unspecified alcohol-induced disorder Qualified Code(s): F10.29 - Alcohol dependence with unspecified alcohol-induced disorder Disposition: Admitted As Inpatient Condition: Fair Referrals: NONE,PCP [Primary Care Provider] - Time of Disposition: 05:33 Psych HPI - General Stated Complaint: SI Time Seen by Provider: 11/05/17 20:54 Source: patient Mode of arrival: ambulatory Limitations: no limitations Nursing Notes Reviewed: Yes Vital Signs Reviewed: Yes - History of Present Illness HPI Narrative: Alert and oriented and nontoxic appearing 62-year-old male presents for evaluation of suicidal ideation and worsening depression. Symptoms again 1.5 days ago and have gradually gotten worse. When asked about any plan, the patient states "I thought about hanging myself". He denies any increased or new life stressors, however states "it is just slightly to be by herself over the holidays". Denies any recent changes in his medication regimen. He states that he does take medication for anxiety and depression however he cannot recall which medications these are. He states that he is faithful in taking his medications as prescribed. He denies any homicidal ideations, auditory hallucinations, or visual hallucinations. He denies any other complaints or concerns at this time. Pt complaint: suicidal ideation, feels depressed Onset (ago): day(s) (1.5) Duration: getting worse Improves with: none Worsens with: none Context: recent alcohol abuse Associated Psychiatric Symptoms: depression, suicidal ideation Associated symptoms: Reports: denies other symptoms Self harm or harm to others: admits thoughts of self harm, has plan - Related Data Home Medications Medication Instructions Recorded Confirmed Apixaban [Eliquis] 5 mg PO BID 06/22/15 11/27/16 Diltiazem HCl [Cardizem Cd] 360 mg PO DAILY 06/22/15 11/27/16 Metoprolol [Lopressor] 25 mg PO BID 06/22/15 11/27/16 Quetiapine Fumarate [Seroquel] 200 mg PO HS 10/21/15 11/27/16 Amiodarone [Cordarone] 200 mg PO DAILY 03/04/16 11/27/16 Aspirin 81 mg PO DAILY 03/04/16 11/25/16 DULoxetine [Cymbalta] 60 mg PO BID 03/04/16 11/27/16 Mirtazapine [Remeron] 45 mg PO HS 03/04/16 11/27/16 Furosemide [Lasix] 20 mg PO DAILY 11/25/16 11/27/16 Cyclobenzaprine [Flexeril] 10 mg PO HS PRN 11/27/16 11/27/16 Methocarbamol [Robaxin-750] 750 mg PO Q8H PRN 11/27/16 11/27/16 Previous Rx's Medication Instructions Recorded Docusate [Colace] 100 mg PO BID #30 capsule 03/06/16 Amoxicillin/Clavulanate [Augmentin] 875 mg PO BIDWM #18 tablet 11/30/16 Doxycycline 100 mg PO BID #18 capsule 11/30/16 Folic Acid 1 mg PO DAILY #30 tablet 11/30/16 Lactobacillus [Culturelle] 1 each PO BID #60 cap.sprink 11/30/16 Thiamine (B-1) [Vitamin B-1] 100 mg PO DAILY #30 tablet 11/30/16 predniSONE [PredniSONE] 10 mg PO DAILY 8 Days tablet 11/30/16 Allergies Allergy/AdvReac Type Severity Reaction Status Date / Time Tetanus Vaccines and Toxoid AdvReac Intermediate Fever Verified 06/22/15 14:01 [Tetanus Vaccines & Toxoid] All systems ED: reviewed and negative except as stated. Constitutional: Denies: fever, chills, weakness, weight change Eyes: Denies: eye pain, eye discharge, vision change ENT ED: Denies: ear pain, throat pain, dental pain, hearing loss, epistaxis, congestion, dysphagia Cardiovascular: Denies: chest pain, palpitations, dyspnea on exertion, edema, syncope Respiratory: Denies: cough, dyspnea, wheezes, hemoptysis, stridor Gastrointestinal: Denies: abdominal pain, nausea, vomiting, diarrhea, constipation, hematemesis, melena, hematochezia Genitourinary: Denies: urgency, dysuria, frequency, hematuria Musculoskeletal: Denies: back pain, neck pain, arthralgia, myalgia Integumentary: Denies: rash, abrasion, lesions Neurological: Denies: headache, weakness, numbness, paresthesias, confusion, abnormal gait, vertigo Psychiatric: Reports: as per HPI, depression, suicidal thoughts. Denies: anxiety, homicidal thoughts, auditory hallucinations, visual hallucinations Endocrine: Denies: fatigue Hematological/Lymphatic: Denies: easy bleeding, easy bruising Allergic/Immunologic: Denies: facial swelling, urticaria Past Medical History - Past Medical History Attestation: Yes The following information was validated with the patient. Source: patient, nursing notes reviewed Medical history: Reports: COPD, coronary artery disease, hepatitis (C), hypertension, thyroid disease, other (atrial flutter) Surgical history: Reports: angioplasty/stent, appendectomy, cholecystectomy, orthopedic, other, other Psychiatric history: Reports: anxiety, depression, prior suicide attempt, other - Social History Smoking Status: Current every day smoker Smokeless Tobacco Status: No Alcohol use: Reports: none Drug use: Reports: none Physical Exam - General Limitations: no limitations General appearance: alert, in no apparent distress - Head Head exam: atraumatic, normocephalic, normal inspection - Eye Eye exam: Present: normal appearance, PERRL, EOMI. Absent: nystagmus - ENT ENT exam: mucous membranes moist - Neck Neck exam: Present: normal inspection, full ROM, trachea midline - Chest Chest inspection: Present: normal inspection, symmetric chest wall rise - Respiratory Respiratory exam: Present: normal lung sounds bilaterally. Absent: respiratory distress, wheezes, stridor, accessory muscle use, prolonged expiratory phase - Cardiovascular Cardiovascular exam: Present: regular rate, normal rhythm, normal heart sounds - Abdominal Exam Abdominal exam: Present: soft, Non-Tender, normal bowel sounds - Extremities Exam Extremities exam: Present: normal inspection, full ROM. Absent: tenderness, pedal edema - Neurological Exam Neurological exam: Present: alert, oriented X3 - Psychiatric Psychiatric exam: Present: normal affect, normal mood - Skin Skin exam: Present: warm, dry, intact, normal color Course Course Narrative: 0525: I have been informed by the patient's nurse Dinora that a fundraising sale representative from and came to assess the patient. The patient stated that he was beginning to feel like he was going into withdrawal from alcohol. As such, 1A we will not assess or see the patient at this time. We will admit to medicine with pending psychiatric consultation. I have discussed this with Dr. Venegas. Dr. Venegas agrees with admission to the hospitalist service. Vital Signs Temperature 98.2 F 11/05/17 21:07 Pulse Rate 109 11/05/17 21:07 Respiratory Rate 18 11/05/17 21:07 Blood Pressure 120/85 11/05/17 21:07 O2 Sat by Pulse Oximetry 92 11/05/17 21:07 Temperature 98.2 F 11/05/17 21:07 Pulse Rate 109 11/05/17 21:07 Respiratory Rate 18 11/05/17 21:07 Blood Pressure 120/85 11/05/17 21:07 O2 Sat by Pulse Oximetry 92 11/05/17 21:07 Oxygen Delivery Oxygen Delivery Room Air Psych - Lab Data Result diagrams: 11/05/17 21:27 11/05/17 21:27 Lab Results 11/05/17 11/05/17 11/05/17 Range/Units 21:27 21:27 22:16 WBC 10.4 (4.3-11.1) K/mcL RBC 5.16 (4.19-5.50) M/mcL Hgb 16.2 (12.9-16.9) g/dL Hct 49.8 (37.5-50.1) % MCV 96.5 (83.0-100.0) fL MCH 31.4 (28.0-33.3) pg MCHC 32.5 (31.6-35.5) g/dL RDW 15.3 H (11.5-14.5) % Plt Count 219 (140-400) K/mcL MPV 9.0 L (9.4-12.4) fL Immature Gran % 0.5 (0-4) % Seg Neutrophils % 48.4 % Lymphocytes % 34.7 % Monocytes % 14.4 % Eosinophils % 1.3 % Basophils % 0.7 % Neutrophils # 5.0 (1.6-8.9) K/mcL Lymphocytes # 3.6 (0.6-4.6) K/mcL Monocytes # 1.5 H (0.0-1.3) K/mcL Eosinophils # 0.1 (0.0-0.6) K/mcL Basophils # 0.1 (0.0-0.2) K/mcL Sodium 140 (136-145) mEq/L Potassium 4.1 (3.5-5.1) mEq/L Chloride 104 (98-107) mEq/L Carbon Dioxide 26 (23-29) mEq/L BUN 8 (8-23) mg/dL Creatinine 0.95 (0.70-1.30) mg/dL Est GFR ( Amer) > 60 (> 60) Est GFR (Non-Af Amer) > 60 (> 60) BUN/Creatinine Ratio 8 (6-26) Glucose 131 H (70-105) mg/dL Calculated Osmolality 290 (280-300) Calcium 8.8 (8.6-10.3) mg/dL Urine Color Yellow (Yellow) Urine Clarity Clear (Clear) Urine pH 6.0 (5.0-8.0) pH Units Ur Specific [place] 1.017 (1.010-1.025) Urine Protein Negative (Neg-Trace) mg/dL Urine Glucose (UA) Normal (Normal) mg/dL Urine Ketones Negative (Negative) mg/dL Urine Blood Negative (Negative) Urine Nitrite Negative (Negative) Urine Bilirubin Negative (Negative) Urine Urobilinogen Normal (Normal) mg/dL Ur Leukocyte Esterase Negative (Negative) Salicylates < 5.0 L (15.0-30.0) mg/dL Urine Opiates Screen (Hbdidr=157) ng/mL Acetaminophen < 1.0 L (10-30) mcg/mL Ur Barbiturates Screen (Wllypi=043) ng/mL Ur Phencyclidine Scrn (Cutoff=25) ng/mL Ur Amphetamines Screen (Wlklkc=2228) ng/mL U Benzodiazepines Scrn (Oszmbl=918) ng/mL Urine Cocaine Screen (Cutoff= 300) ng/mL U Marijuana (THC) Screen (Cutoff = 50) ng/mL Ethyl Alcohol 221 H (0-10) mg/dL 11/05/17 11/06/17 Range/Units 22:16 03:36 WBC (4.3-11.1) K/mcL RBC (4.19-5.50) M/mcL Hgb (12.9-16.9) g/dL Hct (37.5-50.1) % MCV (83.0-100.0) fL MCH (28.0-33.3) pg MCHC (31.6-35.5) g/dL RDW (11.5-14.5) % Plt Count (140-400) K/mcL MPV (9.4-12.4) fL Immature Gran % (0-4) % Seg Neutrophils % % Lymphocytes % % Monocytes % % Eosinophils % % Basophils % % Neutrophils # (1.6-8.9) K/mcL Lymphocytes # (0.6-4.6) K/mcL Monocytes # (0.0-1.3) K/mcL Eosinophils # (0.0-0.6) K/mcL Basophils # (0.0-0.2) K/mcL Sodium (136-145) mEq/L Potassium (3.5-5.1) mEq/L Chloride (98-107) mEq/L Carbon Dioxide (23-29) mEq/L BUN (8-23) mg/dL Creatinine (0.70-1.30) mg/dL Est GFR ( Amer) (> 60) Est GFR (Non-Af Amer) (> 60) BUN/Creatinine Ratio (6-26) Glucose (70-105) mg/dL Calculated Osmolality (280-300) Calcium (8.6-10.3) mg/dL Urine Color (Yellow) Urine Clarity (Clear) Urine pH (5.0-8.0) pH Units Ur Specific [place] (1.010-1.025) Urine Protein (Neg-Trace) mg/dL Urine Glucose (UA) (Normal) mg/dL Urine Ketones (Negative) mg/dL Urine Blood (Negative) Urine Nitrite (Negative) Urine Bilirubin (Negative) Urine Urobilinogen (Normal) mg/dL Ur Leukocyte Esterase (Negative) Salicylates (15.0-30.0) mg/dL Urine Opiates Screen Negative (Pecxou=715) ng/mL Acetaminophen (10-30) mcg/mL Ur Barbiturates Screen Negative (Pbence=246) ng/mL Ur Phencyclidine Scrn Negative (Cutoff=25) ng/mL Ur Amphetamines Screen Negative (Zmkewx=0357) ng/mL U Benzodiazepines Scrn Negative (Dzigid=104) ng/mL Urine Cocaine Screen Negative (Cutoff= 300) ng/mL U Marijuana (THC) Screen Negative (Cutoff = 50) ng/mL Ethyl Alcohol 26 H (0-10) mg/dL Psychiatric Medical Clearance - Medical Clearance Checklist Medical History: Atrial flutter with controlled response (Chronic) HTN (hypertension) (Chronic) Hyperlipemia (Chronic) Obesity (Chronic) Hepatitis C (Chronic) Abscess of ankle (Acute) CAD (coronary artery disease) (Chronic) Type 2 diabetes mellitus (Chronic) IV drug abuse (Acute) Cellulitis (Acute) Sepsis (Resolved) Altered mental status (Resolved) CHF (congestive heart failure) (Acute) Hyponatremia (Resolved) Alcoholism (Chronic) Delirium due to medical condition with behavioral disturbance (Resolved) Polysubstance abuse (Chronic) DVT prophylaxis (Acute) Cellulitis of right leg (Acute) Acute exacerbation of CHF (congestive heart failure) (Acute) H/O polydrug abuse (Acute) Pneumonia (Resolved) Acute kidney injury (Acute) Atrial fibrillation (Chronic) Pneumonia (Acute) Respiratory failure (Acute) COPD (chronic obstructive pulmonary disease) (Acute) Atrial flutter (Chronic) DVT prophylaxis (Acute) Diabetes (Chronic) Tobacco abuse (Acute) Elevated troponin (Acute) Alcohol withdrawal delirium (Resolved) Acute thoracic back pain (Inactive) Closed rib fracture (Inactive) Lower extremity edema (Inactive) Nausea (Inactive) Polysubstance abuse (Inactive) Rib pain on right side (Inactive) Right rib fracture (Inactive) Sinusitis (Inactive) No Social History Section defined Current Vitals: Last Vital Signs Temp 98.2 F 11/05/17 21:07 Pulse 109 11/05/17 21:07 Resp 18 11/05/17 21:07 BP 120/85 11/05/17 21:07 Pulse Ox 92 11/05/17 21:07 Psychiatric Lab Panel: Drug Levels and Toxicity 11/05/17 11/05/17 11/06/17 21:27 22:16 03:36 Urine Opiates Screen Negative Acetaminophen < 1.0 L Ur Barbiturates Screen Negative Ur Phencyclidine Scrn Negative Ur Amphetamines Screen Negative U Benzodiazepines Scrn Negative Urine Cocaine Screen Negative U Marijuana (THC) Screen Negative Ethyl Alcohol 221 H 26 H Abnormal Labs: Abnormal lab results RDW 15.3 % (11.5-14.5) H 11/05/17 21:27 MPV 9.0 fL (9.4-12.4) L 11/05/17 21:27 Monocytes # 1.5 K/mcL (0.0-1.3) H 11/05/17 21: Glucose 131 mg/dL (70-105) H 11/05/17 21:27 Salicylates < 5.0 mg/dL (15.0-30.0) L 11/05/17 21: Acetaminophen < 1.0 mcg/mL (10-30) L 11/05/17 21:27 Ethyl Alcohol 26 mg/dL (0-10) H 11/06/17 03:36 Statement of Medical Clearance: I have evaluated the patient, reviewed diagnostic information, and certify that the patient's medical condition is sufficiently stable that transfer to the psychiatric unit does not pose a significant risk of deterioration.
[2017-11-05 21:47] LABS: Basophils # 0.1 K/mcL (0.0-0.2); Basophils % 0.7 %; Eosinophils # 0.1 K/mcL (0.0-0.6); Eosinophils % 1.3 %; Hematocrit 49.8 % (37.5-50.1); Hemoglobin 16.2 g/dL (12.9-16.9); Immature Granulocytes % 0.5 % (0-4); Lymphocytes # 3.6 K/mcL (0.6-4.6); Lymphocytes % 34.7 %; Mean Corpuscular HGB Conc 32.5 g/dL (31.6-35.5); Mean Corpuscular Hemoglobin 31.4 pg (28.0-33.3); Mean Corpuscular Volume 96.5 fL (83.0-100.0); Monocytes # 1.5 K/mcL (0.0-1.3); Monocytes % 14.4 %; Platelet Count 219 K/mcL (140-400); Red Blood Count 5.16 M/mcL (4.19-5.50); Red Cell Distribution Width 15.3 % (11.5-14.5); Segmented Neutrophils % 48.4 %
[2017-11-05 22:03] LABS: BUN/Creatinine Ratio 8 (6-26); Blood Urea Nitrogen 8 mg/dL (8-23); Calcium 8.8 mg/dL (8.6-10.3); Carbon Dioxide 26 mEq/L (23-29); Chloride 104 mEq/L (98-107); Ethanol 221 mg/dL (0-10); Glucose 131 mg/dL (70-105); Osmolality,Calculated 290 (280-300); Potassium 4.1 mEq/L (3.5-5.1); Sodium 140 mEq/L (136-145); eGFR For African Americans > 60 (> 60); eGFR For Non-African Americans > 60 (> 60)
[2017-11-05 22:20] LABS: Acetaminophen < 1.0 mcg/mL (10-30); Salicylate < 5.0 mg/dL (15.0-30.0)
[2017-11-05 22:36] LABS: Bilirubin,Urine Negative (Negative); Blood,Urine Negative (Negative); Clarity,Urine Clear (Clear); Color,Urine Yellow (Yellow); Glucose,Urine (UA) Normal (Normal); Ketones,Urine Negative (Negative); Leukocyte Esterase,Urine Negative (Negative); Nitrite,Urine Negative (Negative); Protein,Urine Negative (Neg-Trace); Specific Gravity,Urine 1.017 (1.010-1.025); Urobilinogen,Urine Normal (Normal)
[2017-11-05] MEDS ORDERED: Nicotine 21 MG PATCH.TD24 TD STA (22:42)
[2017-11-05 22:45] LABS: Amphetamine Screen,Urine Negative ng/mL (Cutoff=1000); Barbiturate Screen,Urine Negative ng/mL (Cutoff=200); Benzodiazepines Screen,Urine Negative ng/mL (Cutoff=200); Cannabinoid Screen,Urine Negative ng/mL (Cutoff = 50); Cocaine Screen,Urine Negative ng/mL (Cutoff= 300); Opiate Screen,Urine Negative ng/mL (Cutoff=300); Phencyclidine Screen,Urine Negative ng/mL (Cutoff=25)
[2017-11-06] MEDS ORDERED: *HR* LORazepam 2 MG/ML VIAL IVP ONE (05:27)
[2017-11-06] MEDS ORDERED: Thiamine (B-1) 100 MG, Folic Acid 1 MG, MVI, adult with vitamin K 10 ML in 0.9 % Sodi... IVPB ONE (05:30)
[2017-11-06] MEDS ORDERED: Naloxone 0.4 MG/ML INJ IVP PRN (08:45)
[2017-11-06] MEDS ORDERED: *HR* LORazepam 2 MG/ML VIAL IVP PRN (08:46)
[2017-11-06] MEDS: *HR* LORazepam 2 MG/ML VIAL IVP PRN ×6 (09:47→21:01)
[2017-11-06 09:51] LABS: Alanine Aminotransferase 57 Units/L (7-52); Albumin 3.9 g/dL (3.5-5.7); Albumin/Globulin Ratio 1.2 (1.1-2.2); Alkaline Phosphatase 145 Units/L (34-104); Amylase 40 Units/L (29-103); Aspartate Amino Transferase 75 Units/L (13-39); BUN/Creatinine Ratio 11 (6-26); Blood Urea Nitrogen 11 mg/dL (8-23); Calcium 8.8 mg/dL (8.6-10.3); Carbon Dioxide 27 mEq/L (23-29); Chloride 105 mEq/L (98-107); Globulin 3.2 g/dL (2.4-3.5); Glucose 130 mg/dL (70-105); Lipase 20 Units/L (11-82); Osmolality,Calculated 287 (280-300); Sodium 138 mEq/L (136-145); Total Protein 7.1 g/dL (6.4-8.9); eGFR For African Americans > 60 (> 60); eGFR For Non-African Americans > 60 (> 60)
[2017-11-06] MEDS: *HR* Amiodarone 200 MG TABLET PO SCH (10:58)
[2017-11-06] MEDS: Apixaban 5 MG TABLET PO SCH ×2 (10:58→21:02)
[2017-11-06] MEDS ORDERED: Ibuprofen 400 MG TABLET PO ONE (11:27)
--- NOTE | 2017-11-06 13:03 | Internal Med History&Physical ---
Date of Encounter: 11/06/17 Time of Encounter: 08:15 Assessment and Plan (1) Suicidal ideation Current visit: Yes Status: Acute has known depression. Now with worsening depressive symptoms and suicidal ideation. Patient reported plan to hang himself prior to arrival; now denies SI or HI. Will need to be evaluated by psychiatry. Continue suicide precautions, one-to-one sitter. Psychiatry consulted (2) Alcohol intoxication Current visit: Yes Status: Acute drinks a 12 pack of beer daily. Etoh level 221 on arrival. Denies hx seizures or DTs with withdrawal. With mild withdrawal symptoms on exam. Monitor with CIWA. IV PPI, banana bag Qualifiers: Complication of substance-induced condition: uncomplicated Qualified Code(s ): F10.920 - Alcohol use, unspecified with intoxication, uncomplicated (3) Atrial fibrillation Current visit: No Status: Chronic per hx. rate controlled. Continue home BB, amiodarone, CCB. Anticoagulation with Eliquis Qualifiers: Atrial fibrillation type: chronic Qualified Code(s): I48.2 - Chronic atrial fibrillation (4) Hepatitis C Current visit: No Status: Chronic per hx. LFTs elevated but stable. Monitor repeat LFTs. Qualifiers: Viral hepatitis chronicity: chronic Hepatic coma status: without hepatic coma Qualified Code(s): B18.2 - Chronic viral hepatitis C (5) Essential hypertension Current visit: Yes Status: Acute per hx. BP controlled. Continue home BP medication. Monitor BP and titrate PRN (6) DVT prophylaxis Current visit: No Status: Acute eliquis Internal Medicine - H&P: HPI Chief complaint: SI Admitted From: Home Plans for Post Hospital Care: Home History of present illness: Mr. Gilliland is a 62 year old male with past medical history A. fib, hypertension, depression and alcohol abuse who presented to [facility] on 11/06/2017 complaints of increasing depression and SI. He was found to be acutely intoxicated and was placed in observation status for further workup and treatment. Information obtained from chart review and patient report. Patient reports long history of depression now with worsening symptoms. Says holiday time is always back for him. He reports suicidal ideation with plan to kill himself, he now denies. He does feel more depressed than usual. No chest pain or shortness of breath. He reports medication compliance. Past Med Surg Social Fam HX - Past Medical History Medical history: COPD, coronary artery disease, hepatitis, hypertension, thyroid disease, other Psychiatric history: anxiety, depression, prior suicide attempt, other - Past Surgical History Surgical History: angioplasty/stent, appendectomy, cholecystectomy, orthopedic, other, other - Social History Smoking Status: Current every day smoker Packs per day: 1 Smokeless Tobacco Status: No Alcohol use: none Drug use: none - Family History Mother Living Status: Still Living Hx Family Cardiac Disorders: Yes (afib) Father Living Status: Cause of : chf Internal Medicine - H&P: Meds Apixaban [Eliquis] 5 mg PO BID 06/22/15 [History] Diltiazem HCl [Cardizem Cd] 360 mg PO DAILY 06/22/15 [History] Metoprolol [Lopressor] 25 mg PO BID 06/22/15 [History] Quetiapine Fumarate [Seroquel] 200 mg PO HS 10/21/15 [History] Amiodarone [Cordarone] 200 mg PO DAILY 03/04/16 [History] Aspirin 81 mg PO DAILY 03/04/16 [History] DULoxetine [Cymbalta] 60 mg PO BID 03/04/16 [History] Mirtazapine [Remeron] 45 mg PO HS 03/04/16 [History] Docusate [Colace] 100 mg PO BID #30 capsule 03/06/16 [Rx] Furosemide [Lasix] 20 mg PO DAILY 11/25/16 [History] Thiamine (B-1) [Vitamin B-1] 100 mg PO DAILY #30 tablet 11/30/16 [Rx] Buspirone HCl [Buspar] 10 mg PO BID 11/06/17 [History] Meclizine HCl [Verticalm] 25 mg PO TID 11/06/17 [History] 3 Allergy/AdvReac Type Severity Reaction Status Date / Time Tetanus Vaccines and Toxoid AdvReac Intermediate Fever Verified 06/22/15 14:01 [Tetanus Vaccines & Toxoid] All Systems PM: A 10-system review of systems was performed and is negative for pertinent findings except as documented above in the HPI. - Constitutional Constitutional: no chills, no fever(s), no night sweats - EENT Eyes: no change in vision, no discharge, no pain, no photophobia Ears: no ear discharge, no ear pain, no tinnitus Nose, mouth and throat: no dysphagia, no nasal discharge, no neck pain, no sore throat - Cardiovascular Cardiovascular ROS IM: no chest pain, no diaphoresis, no dyspnea, no lightheadedness, no palpitations, no syncope - Respiratory Respiratory: no cough, no dyspnea, no wheezing, no excessive phlegm production - Gastrointestinal Gastrointestinal: no abdominal pain, no diarrhea, no hematemesis, no hematochezia, no melena, no nausea, no vomiting - Musculoskeletal Musculoskeletal ROS IM: no numbness, no tingling - Integumentary Integumentary IM: no rash, no unusual bruising - Neurological Neurological ROS: no confusion, no convulsions, no focal weakness, no numbness, no tingling, no tremor(s) - Psychiatric Psychiatric: anxiety, depression, suicidal ideation - Hematologic/Lymphatic Hematologic/Lymphatic: no easy bruising - Constitutional Vitals: Temp Pulse Resp BP Pulse Ox 98.0 F 105 20 119/80 91 11/06/17 11:35 11/06/17 11:35 11/06/17 11:35 11/06/17 11:35 11/06/17 11:35 General appearance: Present: A&O X 3, no acute distress - Head Head exam: Present: atraumatic, normocephalic - Eye Eye exam: Present: PERRL, conjuntiva pink, sclera anicteric Pupils: Present: PERRL - Neck Neck exam general surgery: Present: supple, trachea midline. Absent: lymphadenopathy - Respiratory Respiratory exam: Present: CTAB. Absent: accessory muscle use, rales, rhonchi, wheezes - Cardiovascular Cardiovascular exam: Present: RRR, +S1, +S2. Absent: diastolic murmur, gallop, rubs, systolic murmur - GI/Abdominal GI/Abdominal exam: Present: normal bowel sounds, soft, no peritoneal signs. Absent: distended, tenderness - Extremities Exam Extremities exam: Present: warm, radial pulses palpable and symmetrical. Absent : calf tenderness, cyanotic, pedal edema - Neurological Exam Neurological exam: Present: CN II-XII intact, oriented X3, no focal deficits. Absent: pronater drift, facial droop, speech deficit - Skin Skin exam: Present: dry, intact Additional comments: multiple scabbed areas to bilateral arms Internal Med - H&P Results - Labs CBC & Chem 7: 11/05/17 21:27 11/06/17 09:14 Labs: BMP 11/06/17 09:14 Sodium 138 Potassium 5.0 Chloride 105 Carbon Dioxide 27 BUN 11 Creatinine 0.96 Glucose 130 H Calcium 8.8 Liver Function 11/06/17 Range/Units 09:14 Total Bilirubin 1.0 (0.3-1.0) mg/dL AST 75 H (13-39) Units/L ALT 57 H (7-52) Units/L Alkaline Phosphatase 145 H (34-104) Units/L Albumin 3.9 (3.5-5.7) g/dL
--- NOTE | 2017-11-06 14:24 | Consult Note ---
Date of Encounter: 11/06/17 Time of Encounter: 14:17 Assessment & Recommendation (1) Major depress dis, severe Current visit: Yes Status: Acute Assessment & Recommendation: Continue to manage alcohol withdrawal. Once medically clear can admit to an inpatient psychiatric unit if he is still endorsing SI. If he is feeling safe to return home would recommend contacting [facility] in order to schedule outpatient follow-up. Would recommend a social work consult to assist with a residential AOD referral. Continue same mental health meds for now. Depression is not particularly amenable to treatment during early alcohol withdrawal so I would not advise changing medication regimen at this time. History of Present Illness Requesting Physician: Emilia Srivastava CNP Reason for consult: suicidal ideation History of present illness: Mr. Gilliland is a 62 year old male who presented to the ER with alcohol intoxication and suicidal ideation. Admitted medically due to potential for withdrawals. Client reports he is still needing Ativan to manage his withdrawal symptoms. States he is very depressed. Drinking twelve beers daily. Taking psych meds but compliance is highly questionable. States he needs to "get back in to see" his Psychiatrist at [facility]. Has a history of multiple psychiatric admissions with similar presentations. Advocating for another admission. "I need socialization." "I need groups." States he feels unsafe at home. Currently renting a room. Client reports housing is secure but his hospital admissions are often accompanied by homelessness. CC: Emilia Srivastava CNP Past Med Surg Social Fam HX - Past Medical History Medical history: COPD, coronary artery disease, hepatitis, hypertension, thyroid disease, other - Past Psychiatric History Psychiatric history: Reports: depression, prior suicide attempt, previous psychiatric hospitalization Family psychiatric history: Unknown Family History of Suicide: Unknown - Past Surgical History Surgical History: angioplasty/stent, appendectomy, cholecystectomy, orthopedic, other, other - Social History Smoking Status: Current every day smoker Smokeless Tobacco Status: No Alcohol use: none Drug use: none - Family History Mother Living Status: Still Living Hx Family Cardiac Disorders: Yes (afib) Father Living Status: Cause of : chf Medications & Allergies Apixaban [Eliquis] 5 mg PO BID 06/22/15 [History] Diltiazem HCl [Cardizem Cd] 360 mg PO DAILY 06/22/15 [History] Metoprolol [Lopressor] 25 mg PO BID 06/22/15 [History] Quetiapine Fumarate [Seroquel] 200 mg PO HS 10/21/15 [History] Amiodarone [Cordarone] 200 mg PO DAILY 03/04/16 [History] Aspirin 81 mg PO DAILY 03/04/16 [History] DULoxetine [Cymbalta] 60 mg PO BID 03/04/16 [History] Mirtazapine [Remeron] 45 mg PO HS 03/04/16 [History] Docusate [Colace] 100 mg PO BID #30 capsule 03/06/16 [Rx] Furosemide [Lasix] 20 mg PO DAILY 11/25/16 [History] Thiamine (B-1) [Vitamin B-1] 100 mg PO DAILY #30 tablet 11/30/16 [Rx] Buspirone HCl [Buspar] 10 mg PO BID 11/06/17 [History] Meclizine HCl [Verticalm] 25 mg PO TID 11/06/17 [History] 3 Allergy/AdvReac Type Severity Reaction Status Date / Time Tetanus Vaccines and Toxoid AdvReac Intermediate Fever Verified 06/22/15 14:01 [Tetanus Vaccines & Toxoid] Review of Systems Constitutional: Denies: fever, chills, weakness, weight change Eyes: Denies: eye pain, vision change Ears, Nose, Throat: Denies: ear pain, throat pain, dental pain, hearing loss, congestion Cardiovascular: Denies: chest pain, palpitations, dyspnea on exertion Respiratory: Denies: cough, dyspnea, wheezes Gastrointestinal: Denies: abdominal pain, nausea, vomiting, diarrhea, constipation Genitourinary male: Denies: urgency, dysuria, frequency, genital lesions Genitourinary female: Denies: urgency, dysuria, frequency, abnormal menses, dyspareunia Musculoskeletal: Denies: joint swelling, joint pain Integumentary: Denies: rash, lesions, pruritus Neurological: Denies: headache, weakness, numbness, memory loss Endocrine: Denies: fatigue, heat or cold intolerance Hematologic/Lymphatic: Denies: easy bruising, lymphadenopathy Allergic/Immunologic: Denies: urticaria, itchy eyes Mental Status Exam Patient orientation: Yes Person, Yes Time, Yes Place Level of alertness: Alert Patient appearance: Disheveled Behavior: calm, cooperative Psychomotor activity: Normal Eye contact: Maintains Eye Contact Mood description: Depressed Affect description: congruent with mood Speech pattern: Normal rate, Normal rhythm, Normal tone Speech volume: Normal Thought process: Goal Oriented Thought content: Yes Suicidal ideation, No Homicidal ideation, No Overt delusions Perceptual disturbances: No Auditory hallucinations, No Visual hallucinations Attention span: Capable of Focused Attention Memory description: Grossly Intact Patient reliability: Questionable Historian Intelligence estimate: Average Judgment: Limited Insight: Partial Results - Vital Signs Vital signs: Temp Pulse Resp BP Pulse Ox 98.0 F 105 20 119/80 91 11/06/17 11:35 11/06/17 11:35 11/06/17 11:35 11/06/17 11:35 11/06/17 11:35 - Labs Labs: Laboratory Last Values WBC 10.4 K/mcL (4.3-11.1) 11/05/17 21: RBC 5.16 M/mcL (4.19-5.50) 11/05/17 21: Hgb 16.2 g/dL (12.9-16.9) 11/05/17 21:27 Hct 49.8 % (37.5-50.1) 11/05/17 21: MCV 96.5 fL (83.0-100.0) 11/05/17 21: MCH 31.4 pg (28.0-33.3) 11/05/17 21: MCHC 32.5 g/dL (31.6-35.5) 11/05/17 21: RDW 15.3 % (11.5-14.5) H 11/05/17 21:27 Plt Count 219 K/mcL (140-400) 11/05/17 21: MPV 9.0 fL (9.4-12.4) L 11/05/17 21: Immature Gran % 0.5 % (0-4) 11/05/17 21: Seg Neutrophils % 48.4 % 11/05/17 21: Lymphocytes % 34.7 % 11/05/17 21:27 Monocytes % 14.4 % 11/05/17 21: Eosinophils % 1.3 % 11/05/17 21: Basophils % 0.7 % 11/05/17 21:27 Neutrophils # 5.0 K/mcL (1.6-8.9) 11/05/17 21:27 Lymphocytes # 3.6 K/mcL (0.6-4.6) 11/05/17 21:27 Monocytes # 1.5 K/mcL (0.0-1.3) H 11/05/17 21:27 Eosinophils # 0.1 K/mcL (0.0-0.6) 11/05/17 21:27 Basophils # 0.1 K/mcL (0.0-0.2) 11/05/17 21:27 Sodium 138 mEq/L (136-145) 11/06/17 09:14 Potassium 5.0 mEq/L (3.5-5.1) 11/06/17 09:14 Chloride 105 mEq/L (98-107) 11/06/17 09:14 Carbon Dioxide 27 mEq/L (23-29) 11/06/17 09:14 BUN 11 mg/dL (8-23) 11/06/17 09:14 Creatinine 0.96 mg/dL (0.70-1.30) 11/06/17 09:14 Est GFR ( Amer) > 60 (> 60) 11/06/17 09:14 Est GFR (Non-Af Amer) > 60 (> 60) 11/06/17 09:14 BUN/Creatinine Ratio 11 (6-26) 11/06/17 09:14 Glucose 130 mg/dL (70-105) H 11/06/17 09:14 Calculated Osmolality 287 (280-300) 11/06/17 09:14 Calcium 8.8 mg/dL (8.6-10.3) 11/06/17 09:14 Total Bilirubin 1.0 mg/dL (0.3-1.0) 11/06/17 09:14 AST 75 Units/L (13-39) H 11/06/17 09:14 ALT 57 Units/L (7-52) H 11/06/17 09:14 Alkaline Phosphatase 145 Units/L (34-104) H 11/06/17 09:14 Serum Total Protein 7.1 g/dL (6.4-8.9) 11/06/17 09:14 Albumin 3.9 g/dL (3.5-5.7) 11/06/17 09:14 Globulin 3.2 g/dL (2.4-3.5) 11/06/17 09:14 Albumin/Globulin Ratio 1.2 (1.1-2.2) 11/06/17 09:14 Amylase 40 Units/L (29-103) 11/06/17 09:14 Lipase 20 Units/L (11-82) 11/06/17 09:14 Urine Color Yellow (Yellow) 11/05/17 22:16 Urine Clarity Clear (Clear) 11/05/17 22:16 Urine pH 6.0 pH Units (5.0-8.0) 11/05/17 22:16 Ur Specific [place] 1.017 (1.010-1.025) 11/05/17 22:16 Urine Protein Negative mg/dL (Neg-Trace) 11/05/17 22:16 Urine Glucose (UA) Normal mg/dL (Normal) 11/05/17 22:16 Urine Ketones Negative mg/dL (Negative) 11/05/17 22:16 Urine Blood Negative (Negative) 11/05/17 22:16 Urine Nitrite Negative (Negative) 11/05/17 22:16 Urine Bilirubin Negative (Negative) 11/05/17 22:16 Urine Urobilinogen Normal mg/dL (Normal) 11/05/17 22:16 Ur Leukocyte Esterase Negative (Negative) 11/05/17 22:16 Salicylates < 5.0 mg/dL (15.0-30.0) L 11/05/17 21:27 Urine Opiates Screen Negative ng/mL (Bhgjbg=110) 11/05/17 22:16 Acetaminophen < 1.0 mcg/mL (10-30) L 11/05/17 21:27 Ur Barbiturates Screen Negative ng/mL (Escvig=228) 11/05/17 22:16 Ur Phencyclidine Scrn Negative ng/mL (Cutoff=25) 11/05/17 22:16 Ur Amphetamines Screen Negative ng/mL (Maheyb=7191) 11/05/17 22:16 U Benzodiazepines Scrn Negative ng/mL (Keeqeu=010) 11/05/17 22:16 Urine Cocaine Screen Negative ng/mL (Cutoff= 300) 11/05/17 22:16 U Marijuana (THC) Screen Negative ng/mL (Cutoff = 50) 11/05/17 22:16 Ethyl Alcohol 26 mg/dL (0-10) H 11/06/17 03:36 Consult Discharge Plan - Plan
[2017-11-06] MEDS: Ipratropium/Albuterol Neb 3 ML IH SCH ×4 (15:13→23:33)
[2017-11-06] MEDS: Mirtazapine 15 MG TABLET PO SCH (21:02)
[2017-11-07] MEDS: Ipratropium/Albuterol Neb 3 ML IH SCH ×6 (03:49→23:32)
[2017-11-07 04:48] LABS: Mean Corpuscular HGB Conc 32.1 g/dL (31.6-35.5); Mean Corpuscular Volume 96.3 fL (83.0-100.0); Mean Platelet Volume 9.6 fL (9.4-12.4); Platelet Count 132 K/mcL (140-400); Red Blood Count 4.36 M/mcL (4.19-5.50); Red Cell Distribution Width 15.3 % (11.5-14.5)
[2017-11-07 04:58] LABS: BUN/Creatinine Ratio 14 (6-26); Blood Urea Nitrogen 14 mg/dL (8-23); Calcium 8.3 mg/dL (8.6-10.3); Carbon Dioxide 31 mEq/L (23-29); Chloride 102 mEq/L (98-107); Glucose 137 mg/dL (70-105); Osmolality,Calculated 289 (280-300); Potassium 4.3 mEq/L (3.5-5.1); Sodium 138 mEq/L (136-145); eGFR For African Americans > 60 (> 60); eGFR For Non-African Americans > 60 (> 60)
[2017-11-07 05:41] LABS: Hemoglobin 13.5 g/dL (12.9-16.9)
[2017-11-07 09:19] LABS: Alanine Aminotransferase 41 Units/L (7-52); Albumin 3.4 g/dL (3.5-5.7); Albumin/Globulin Ratio 1.1 (1.1-2.2); Alkaline Phosphatase 115 Units/L (34-104); Aspartate Amino Transferase 46 Units/L (13-39); Bilirubin,Direct 0.3 mg/dL (0.0-0.2); Bilirubin,Indirect 0.6 mg/dL (0.0-1.2); Bilirubin,Total 0.9 mg/dL (0.3-1.0); Globulin 3.1 g/dL (2.4-3.5); Total Protein 6.5 g/dL (6.4-8.9)
--- NOTE | 2017-11-07 09:31 | Electrocardiograph Report ---
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
[2017-11-07] MEDS: Aspirin 81 MG TAB.CHEW PO SCH (10:18)
[2017-11-07] MEDS: Furosemide 20 MG TABLET PO SCH (10:18)
[2017-11-07] MEDS: Apixaban 5 MG TABLET PO SCH ×2 (10:18→20:17)
[2017-11-07] MEDS: Diltiazem CD (24hr) 180 MG CAPSULE PO SCH (10:19)
[2017-11-07] MEDS: *HR* Amiodarone 200 MG TABLET PO SCH (10:19)
[2017-11-07] MEDS: Nicotine 21 MG PATCH.TD24 TD SCH (10:20)
[2017-11-07] MEDS: *HR* LORazepam 2 MG/ML VIAL IVP PRN ×4 (10:27→22:11)
--- NOTE | 2017-11-07 14:14 | Internal Med Progress Note ---
Date of Encounter: 11/07/17 Time of Encounter: 14:12 - Assessment and plan (1) Alcohol intoxication Current Visit: Yes Status: Acute Assessment and plan: drinks a 12 pack of beer daily. LAst drink on day of presentation. Etoh level 221 on arrival. Denies hx seizures or DTs with withdrawal. Cont to have mild withdrawal symptoms on 11/07 exam. Monitor with CIWA. IV PPI, banana bag Qualifiers: Complication of substance-induced condition: uncomplicated Qualified Code(s ): F10.920 - Alcohol use, unspecified with intoxication, uncomplicated (2) Suicidal ideation Current Visit: Yes Status: Acute Assessment and plan: has known depression. Now with worsening depressive symptoms and suicidal ideation. Patient reported plan to hang himself prior to arrival; now denies SI or HI. Evaluated by psychiatry who recommended inpatient psych once medically stable if patient does not feel safe at home and/or continues to have SI. Discussed with patient on 11/07 and he feels he needs inpatient psychiatry at this time. We will continue to reassess daily but anticipate he will be discharged to one a once medically stable. Continue suicide precautions, one-to- one sitter. (3) Acute respiratory failure with hypoxia Current Visit: Yes Status: Acute Assessment and plan: With O2 saturations 89% room air. CXR nonacute. Suspect atelectasis with immobility. Schedule duo nebs, aggressive IS. Encouraged out of bed as able. (4) Atrial fibrillation Current Visit: No Status: Chronic Assessment and plan: per hx. rate controlled. Continue home BB, amiodarone, CCB. Anticoagulation with Eliquis Qualifiers: Atrial fibrillation type: chronic Qualified Code(s): I48.2 - Chronic atrial fibrillation (5) Hepatitis C Current Visit: No Status: Chronic Assessment and plan: per hx. hepatitis serology positive for hepatitis C in 2013. LFTs elevated but stable. Qualifiers: Viral hepatitis chronicity: chronic Hepatic coma status: without hepatic coma Qualified Code(s): B18.2 - Chronic viral hepatitis C (6) Essential hypertension Current Visit: Yes Status: Acute Assessment and plan: per hx. BP controlled. Continue home BP medication. Monitor BP and titrate PRN (7) DVT prophylaxis Current Visit: No Status: Acute Assessment and plan: Eliquis - Subjective Interval history: Seen and examined at bedside. Says he feels a little bit better today but still feels he is in withdrawal. Says his hand and eye coordination is off and on he is unsteady on his feet. He denies suicidal ideation over the last few hours but says he does not feel safe going home and he would like to move forward with inpatient psych once he is medically stable. No chest pain or shortness of breath. He is eating and drinking. - Constitutional Vitals: Temp Pulse Resp BP Pulse Ox 98.6 F 89 16 128/82 89 11/07/17 10:59 11/07/17 10:59 11/07/17 11:21 11/07/17 10:59 11/07/17 11:21 General appearance: Present: disheveled, A&O X 3, no acute distress - Head Head exam: Present: atraumatic, normocephalic - Eye Eye exam: Present: PERRL, conjuntiva pink, sclera anicteric Pupils: Present: PERRL - Neck Neck exam general surgery: Present: supple, trachea midline. Absent: lymphadenopathy - Respiratory Respiratory exam: Present: CTAB. Absent: accessory muscle use, rales, rhonchi, wheezes - Cardiovascular Cardiovascular exam: Present: RRR, +S1, +S2. Absent: diastolic murmur, gallop, rubs, systolic murmur - GI/Abdominal GI/Abdominal exam: Present: normal bowel sounds, soft, no peritoneal signs. Absent: distended, tenderness - Extremities Exam Extremities exam: Present: warm, radial pulses palpable and symmetrical. Absent : calf tenderness, cyanotic, pedal edema - Neurological Exam Neurological exam: Present: CN II-XII intact, oriented X3, no focal deficits. Absent: pronater drift, facial droop, speech deficit Additional comments: Appears tremulous - Skin Skin exam: Present: dry, intact Internal Medicine: Result - Labs CBC & Chem 7: 11/07/17 04:32 11/07/17 04:32 Labs: Short CBC 11/07/17 Range/Units 04:32 WBC 7.0 (4.3-11.1) K/mcL Hgb 13.5 D (12.9-16.9) g/dL Hct 42.0 (37.5-50.1) % Plt Count 132 L (140-400) K/mcL BMP 11/07/17 04:32 Sodium 138 Potassium 4.3 Chloride 102 Carbon Dioxide 31 H BUN 14 Creatinine 1.00 Glucose 137 H Calcium 8.3 L Liver Function 11/07/17 Range/Units 04:32 Total Bilirubin 0.9 (0.3-1.0) mg/dL Direct Bilirubin 0.3 H (0.0-0.2) mg/dL AST 46 H (13-39) Units/L ALT 41 (7-52) Units/L Alkaline Phosphatase 115 H (34-104) Units/L Albumin 3.4 L (3.5-5.7) g/dL - Impressions Impressions Chest X-Ray 11/06/17 11:26 IMPRESSION: No acute cardiopulmonary findings. Stable cardiomegaly. D/ / Haley Verde MD / Haley Verde MD Interpreting Provider: Haley Vrede MD Consult Discharge Plan - Plan Referrals: NONE,PCP [Primary Care Provider] - 12/01/17 2:00 pm
[2017-11-07] MEDS: Mirtazapine 15 MG TABLET PO SCH (20:17)
[2017-11-08] MEDS: *HR* LORazepam 2 MG/ML VIAL IVP PRN ×4 (03:42→22:42)
[2017-11-08] MEDS: Ipratropium/Albuterol Neb 3 ML IH SCH ×6 (03:47→23:47)
[2017-11-08] MEDS: Aspirin 81 MG TAB.CHEW PO SCH (08:19)
[2017-11-08] MEDS: Nicotine 21 MG PATCH.TD24 TD SCH (08:19)
[2017-11-08] MEDS: Diltiazem CD (24hr) 180 MG CAPSULE PO SCH (08:19)
[2017-11-08] MEDS: Furosemide 20 MG TABLET PO SCH (08:20)
[2017-11-08] MEDS: *HR* Amiodarone 200 MG TABLET PO SCH (08:20)
[2017-11-08] MEDS: Apixaban 5 MG TABLET PO SCH ×2 (08:20→21:34)
--- NOTE | 2017-11-08 13:28 | Internal Med Progress Note ---
Date of Encounter: 11/08/17 Time of Encounter: 13:26 - Assessment and plan (1) Alcohol intoxication Current Visit: Yes Status: Acute Assessment and plan: drinks a 12 pack of beer daily. Last drink on day of presentation. Etoh level 221 on arrival. Denies hx seizures or DTs with withdrawal. Cont to have mild withdrawal symptoms on 11/07 exam. Monitor with CIWA. IV PPI, banana bag Qualifiers: Complication of substance-induced condition: uncomplicated Qualified Code(s ): F10.920 - Alcohol use, unspecified with intoxication, uncomplicated (2) Suicidal ideation Current Visit: Yes Status: Acute Assessment and plan: has known depression. Now with worsening depressive symptoms and suicidal ideation. Patient reported plan to hang himself prior to arrival; now denies SI or HI. Evaluated by psychiatry who recommended inpatient psych once medically stable if patient does not feel safe at home and/or continues to have SI. Discussed with patient on 11/07 and he feels he needs inpatient psychiatry at this time. We will continue to reassess daily but anticipate he will be discharged to one a once medically stable. Continue suicide precautions, one-to- one sitter. (3) Acute respiratory failure with hypoxia Current Visit: Yes Status: Acute Assessment and plan: With O2 saturations 89% room air. CXR nonacute. Suspect atelectasis with immobility. Schedule duo nebs, aggressive IS. Encouraged out of bed as able. (4) Atrial fibrillation Current Visit: No Status: Chronic Assessment and plan: per hx. rate controlled. Continue home BB, amiodarone, CCB. Anticoagulation with Eliquis Qualifiers: Atrial fibrillation type: chronic Qualified Code(s): I48.2 - Chronic atrial fibrillation (5) Hepatitis C Current Visit: No Status: Chronic Assessment and plan: per hx. hepatitis serology positive for hepatitis C in 2013. LFTs elevated but stable. Qualifiers: Viral hepatitis chronicity: chronic Hepatic coma status: without hepatic coma Qualified Code(s): B18.2 - Chronic viral hepatitis C (6) Essential hypertension Current Visit: Yes Status: Acute Assessment and plan: per hx. BP controlled. Continue home BP medication. Monitor BP and titrate PRN (7) DVT prophylaxis Current Visit: No Status: Acute Assessment and plan: Eliquis - Subjective Interval history: Seen and examined at bedside. Says he is about the same. Reports hallucinations ; says the kent look like comic strips. He feels like he is in mild withdrawal. He is requesting admission to inpatient psych once medically stable - Constitutional Vitals: Temp Pulse Resp BP Pulse Ox 98.2 F 80 16 125/78 90 11/08/17 11:37 11/08/17 11:37 11/08/17 11:37 11/08/17 11:37 11/08/17 11:37 General appearance: Present: disheveled, A&O X 3, no acute distress - Head Head exam: Present: atraumatic, normocephalic - Eye Eye exam: Present: PERRL, conjuntiva pink, sclera anicteric Pupils: Present: PERRL - Neck Neck exam general surgery: Present: supple, trachea midline. Absent: lymphadenopathy - Respiratory Respiratory exam: Present: CTAB. Absent: accessory muscle use, rales, rhonchi, wheezes - Cardiovascular Cardiovascular exam: Present: RRR, +S1, +S2. Absent: diastolic murmur, gallop, rubs, systolic murmur - GI/Abdominal GI/Abdominal exam: Present: normal bowel sounds, soft, no peritoneal signs. Absent: distended, tenderness - Extremities Exam Extremities exam: Present: warm, radial pulses palpable and symmetrical. Absent : calf tenderness, cyanotic, pedal edema - Neurological Exam Neurological exam: Present: CN II-XII intact, oriented X3, no focal deficits. Absent: pronater drift, facial droop, speech deficit - Skin Skin exam: Present: dry, intact Internal Medicine: Result - Labs CBC & Chem 7: 11/07/17 04:32 11/07/17 04:32 Consult Discharge Plan - Plan Referrals: NONE,PCP [Primary Care Provider] - 12/01/17 2:00 pm
[2017-11-08] MEDS: Mirtazapine 15 MG TABLET PO SCH (21:33)
[2017-11-09] MEDS: Ipratropium/Albuterol Neb 3 ML IH SCH ×6 (03:44→23:26)
[2017-11-09 04:18] LABS: Hematocrit 38.9 % (37.5-50.1); Hemoglobin 12.3 g/dL (12.9-16.9); Mean Corpuscular HGB Conc 31.6 g/dL (31.6-35.5); Mean Corpuscular Hemoglobin 31.1 pg (28.0-33.3); Mean Corpuscular Volume 98.5 fL (83.0-100.0); Mean Platelet Volume 10.3 fL (9.4-12.4); Platelet Count 141 K/mcL (140-400); Red Blood Count 3.95 M/mcL (4.19-5.50)
[2017-11-09 04:22] LABS: INR 1.2
[2017-11-09] MEDS: Furosemide 20 MG TABLET PO SCH (07:55)
[2017-11-09] MEDS: Aspirin 81 MG TAB.CHEW PO SCH (07:56)
[2017-11-09] MEDS: Apixaban 5 MG TABLET PO SCH ×2 (07:56→21:42)
[2017-11-09] MEDS: Nicotine 21 MG PATCH.TD24 TD SCH (07:56)
[2017-11-09] MEDS: *HR* Amiodarone 200 MG TABLET PO SCH (07:56)
[2017-11-09] MEDS: Diltiazem CD (24hr) 180 MG CAPSULE PO SCH (08:01)
--- NOTE | 2017-11-09 10:50 | Internal Med Progress Note ---
Date of Encounter: 11/09/17 Time of Encounter: 10:47 - Assessment and plan (1) Alcohol intoxication Current Visit: Yes Status: Acute Assessment and plan: drinks a 12 pack of beer daily. Last drink on day of presentation. Etoh level 221 on arrival. Denies hx seizures or DTs with withdrawal. Monitor with CIWA. IV PPI, banana bag. Qualifiers: Complication of substance-induced condition: uncomplicated Qualified Code(s ): F10.920 - Alcohol use, unspecified with intoxication, uncomplicated (2) Suicidal ideation Current Visit: Yes Status: Acute Assessment and plan: has known depression. Now with worsening depressive symptoms and suicidal ideation. Patient reported plan to hang himself prior to arrival; now denies SI or HI. Evaluated by psychiatry who recommended inpatient psych once medically stable if patient does not feel safe at home and/or continues to have SI. Continue suicide precautions, one-to-one sitter. (3) Acute respiratory failure with hypoxia Current Visit: Yes Status: Acute Assessment and plan: With O2 saturations 89% room air. CXR non-acute. Suspect secondary to atelectasis and immobility. Schedule duo nebs, aggressive IS. Encouraged out of bed as able. (4) Atrial fibrillation Current Visit: No Status: Chronic Assessment and plan: per hx. rate controlled. Continue home BB, amiodarone, CCB. Anticoagulation with Eliquis Qualifiers: Atrial fibrillation type: chronic Qualified Code(s): I48.2 - Chronic atrial fibrillation (5) Hepatitis C Current Visit: No Status: Chronic Assessment and plan: per hx. hepatitis serology positive for hepatitis C in 2013. LFTs elevated but stable. Qualifiers: Viral hepatitis chronicity: chronic Hepatic coma status: without hepatic coma Qualified Code(s): B18.2 - Chronic viral hepatitis C (6) Essential hypertension Current Visit: Yes Status: Acute Assessment and plan: per hx. BP controlled. Continue home BP medication. Monitor BP and titrate PRN (7) DVT prophylaxis Current Visit: No Status: Acute Assessment and plan: Eliquis - Subjective Interval history: Seen and examined at bedside. Sitting up in chair at bedside. Says he slept well last night. Still feels anxious and shaky and reports hallucinations. No CP or SOB - Constitutional Vitals: Temp Pulse Resp BP Pulse Ox 98.5 F 82 16 99/61 90 11/09/17 07:00 11/09/17 07:00 11/09/17 07:00 11/09/17 07:00 11/09/17 07:00 General appearance: Present: disheveled, A&O X 3, no acute distress - Head Head exam: Present: atraumatic, normocephalic - Eye Eye exam: Present: PERRL, conjuntiva pink, sclera anicteric Pupils: Present: PERRL - Neck Neck exam general surgery: Present: supple, trachea midline. Absent: lymphadenopathy - Respiratory Respiratory exam: Present: CTAB. Absent: accessory muscle use, rales, rhonchi, wheezes - Cardiovascular Cardiovascular exam: Present: RRR, +S1, +S2. Absent: diastolic murmur, gallop, rubs, systolic murmur - GI/Abdominal GI/Abdominal exam: Present: normal bowel sounds, soft, no peritoneal signs. Absent: distended, tenderness - Extremities Exam Extremities exam: Present: warm, radial pulses palpable and symmetrical. Absent : calf tenderness, cyanotic, pedal edema - Neurological Exam Neurological exam: Present: CN II-XII intact, oriented X3, no focal deficits. Absent: pronater drift, facial droop, speech deficit - Skin Skin exam: Present: dry, intact Internal Medicine: Result - Labs CBC & Chem 7: 11/09/17 03:25 11/07/17 04:32 Labs: Short CBC 11/09/17 Range/Units 03:25 WBC 6.9 (4.3-11.1) K/mcL Hgb 12.3 L (12.9-16.9) g/dL Hct 38.9 (37.5-50.1) % Plt Count 141 (140-400) K/mcL - ABG Interpretation ABG results: PT/INR, D-dimer PT 13.0 Seconds (9.4-12.1) H 11/09/17 03:25 Consult Discharge Plan - Plan Referrals: NONE,PCP [Primary Care Provider] - 12/01/17 2:00 pm
[2017-11-09] MEDS ORDERED: Ibuprofen 400 MG TABLET PO ONE (18:11)
[2017-11-09] MEDS: Mirtazapine 15 MG TABLET PO SCH (21:43)
[2017-11-10] MEDS: Ipratropium/Albuterol Neb 3 ML IH SCH ×3 (03:33→11:10)
[2017-11-10 07:41] VITALS: BP 139/53
[2017-11-10] MEDS: *HR* Amiodarone 200 MG TABLET PO SCH (09:18)
[2017-11-10] MEDS: Furosemide 20 MG TABLET PO SCH (09:18)
[2017-11-10] MEDS: Apixaban 5 MG TABLET PO SCH (09:18)
[2017-11-10] MEDS: Aspirin 81 MG TAB.CHEW PO SCH (09:18)
[2017-11-10] MEDS: Diltiazem CD (24hr) 180 MG CAPSULE PO SCH (09:18)
[2017-11-10] MEDS: Nicotine 21 MG PATCH.TD24 TD SCH (09:19)
--- NOTE | 2017-11-10 10:40 | Discharge Summary ---
Date of Encounter: 11/10/17 Time of Encounter: 10:34 - Discharge Diagnosis (1) Alcohol intoxication Priority: Primary Status: Resolved Comments: drinks a 12 pack of beer daily. Last drink on day of presentation. Etoh level 221 on arrival. No hx seizures or DTs with withdrawal. He was monitored with CIWA and ativan PRN. Has not required Ativan in over 24 hours. Now resolved Qualifiers: Complication of substance-induced condition: uncomplicated Qualified Code(s ): F10.920 - Alcohol use, unspecified with intoxication, uncomplicated (2) Suicidal ideation Priority: Primary Status: Acute Comments: has known depression. Now with worsening depressive symptoms and suicidal ideation. Patient reported plan to hang himself prior to arrival; now denies SI or HI. Evaluated by psychiatry who recommended inpatient psych once medically stable if patient does not feel safe at home and/or continues to have SI. Patient continues to endorse intermittent SI and does not feel safe going home. Discharge to (3) Acute respiratory failure with hypoxia Priority: Primary Status: Resolved Comments: With O2 saturations 89% room air. CXR non-acute. Suspect secondary to atelectasis and immobility. Treated with duo nebs, aggressive IS, ambulation. Now adequately oxygenating on room air. Resolved (4) Atrial fibrillation Priority: Primary Status: Chronic Comments: per hx. rate controlled. Continue home BB, amiodarone, CCB. Anticoagulation with Eliquis Qualifiers: Atrial fibrillation type: chronic Qualified Code(s): I48.2 - Chronic atrial fibrillation (5) Hepatitis C Priority: Primary Status: Chronic Comments: per hx. hepatitis serology positive for hepatitis C in 2013. LFTs elevated but stable. Qualifiers: Viral hepatitis chronicity: chronic Hepatic coma status: without hepatic coma Qualified Code(s): B18.2 - Chronic viral hepatitis C (6) Essential hypertension Priority: Primary Status: Acute Comments: per hx. BP controlled. Continue home BP medication. Monitor BP and titrate PRN - Discharge Medications Home Medications: Apixaban [Eliquis] 5 mg PO BID 06/22/15 [History] Diltiazem HCl [Cardizem Cd] 360 mg PO DAILY 06/22/15 [History] Metoprolol [Lopressor] 25 mg PO BID 06/22/15 [History] Quetiapine Fumarate [Seroquel] 200 mg PO HS 10/21/15 [History] Amiodarone [Cordarone] 200 mg PO DAILY 03/04/16 [History] Aspirin 81 mg PO DAILY 03/04/16 [History] DULoxetine [Cymbalta] 60 mg PO BID 03/04/16 [History] Mirtazapine [Remeron] 45 mg PO HS 03/04/16 [History] Docusate [Colace] 100 mg PO BID #30 capsule 03/06/16 [Rx] Furosemide [Lasix] 20 mg PO DAILY 11/25/16 [History] Thiamine (B-1) [Vitamin B-1] 100 mg PO DAILY #30 tablet 11/30/16 [Rx] Buspirone HCl [Buspar] 10 mg PO BID 11/06/17 [History] Meclizine HCl [Verticalm] 25 mg PO TID 11/06/17 [History] Allergies/Adverse Reactions: 3 Allergy/AdvReac Type Severity Reaction Status Date / Time Tetanus Vaccines and Toxoid AdvReac Intermediate Fever Verified 06/22/15 14:01 [Tetanus Vaccines & Toxoid] Date of admission: 11/07/17 14:45 Primary care physician: PCP NONE Discharging clinician: Emilia Srivastava Anticipated date of discharge: 11/10/17 - Patient Status Disposition: Transfer Psychiatric Hosp Condition: Good Functional capacity at discharge: independent ambulation Overall status at discharge: patient is progressing back to baseline - Discharge Instructions Follow Up With: NONE,PCP [Primary Care Provider] - 12/01/17 2:00 pm Forms: ED Satisfaction Letter - Diet and Activity Activity: increase activity as tolerated Diet: advance to your usual diet, low fat, low cholesterol Interval History: Seen and examined at bedside. Sitting up on edge of the bed, says he feels better today. He has not required Ativan in over 24 hours. Still says he is having intermittent suicidal ideation and does not feel safe going home. He would like to go to inpatient psych. No active hallucinations or SI at this time. Hospital course: See assessment and plan for hospital course - Time Spent with Patient Total time spent providing and/or coordinating discharge services: - Constitutional Vitals: Temp Pulse Resp BP Pulse Ox 97.5 F L 60 16 139/53 92 11/10/17 07:15 11/10/17 07:15 11/10/17 07:50 11/10/17 07:40 11/10/17 07:50 General appearance: Present: disheveled, A&O X 3, no acute distress
== END 2017-11-10 11:52 | DRG 775 ==
LOC: EMEROO 20:44 → 3BNU 20:44
PROVIDERS: ADMIT Internal Medicine; ATTEND Registered Nurse

== ENCOUNTER 2017-11-10 11:34 | Inpatient (IN) ==
[2017-11-10] MEDS ORDERED: *HR* LORazepam 2 MG/ML VIAL IM PRN (11:54)
[2017-11-10] MEDS ORDERED: Haloperidol Lactate 5 MG/ML VIAL IM PRN (11:54)
[2017-11-10] MEDS ORDERED: Mag Hydrox/Al Hydrox/Simeth 30 ML UDC PO PRN (11:54)
[2017-11-10] MEDS ORDERED: *HR* LORazepam 1 MG TABLET PO PRN (11:54)
[2017-11-10] MEDS ORDERED: MOM Conc 10 ML UD.LIQ PO PRN (21:00)
[2017-11-10] MEDS: traZODone 50 MG TABLET PO PRN (21:21)
[2017-11-10] MEDS: Mirtazapine 15 MG TABLET PO SCH (21:21)
[2017-11-10] MEDS: hydrOXYzine pamoate 25 MG CAPSULE PO PRN (21:21)
[2017-11-10] MEDS: Apixaban 5 MG TABLET PO SCH (22:11)
[2017-11-11] MEDS: Diltiazem CD (24hr) 180 MG CAPSULE PO SCH (09:23)
[2017-11-11] MEDS: Thiamine (B-1) 100 MG TABLET PO SCH (09:23)
[2017-11-11] MEDS: Apixaban 5 MG TABLET PO SCH ×2 (09:23→21:10)
[2017-11-11] MEDS: Aspirin 81 MG TAB.CHEW PO SCH (09:23)
[2017-11-11] MEDS: *HR* Amiodarone 200 MG TABLET PO SCH (09:23)
[2017-11-11] MEDS: Furosemide 20 MG TABLET PO SCH (09:23)
[2017-11-11] MEDS: Nicotine 21 MG PATCH.TD24 TD SCH (09:24)
--- NOTE | 2017-11-11 11:58 | Psychiatry History & Physical ---
Date of Encounter: 11/11/17 Time of Encounter: 10:30 History of Present Illness Patient Stated Chief Complaint: "I feel like I am ready to end my life" Medicare Admission Attestation: For traditional Medicare patients the provided hospital inpatient services are reasonable and necessary and in the case of services not specified as inpatient -only under 42 CFR 419.22 (n), that they are appropriately provided as inpatient services in accordance 42 CFR 412.3. For Critical Access Hospital the patient may reasonably be expected to be discharged or transferred to a hospital within 96 hours after admission to the Critical Access Hospital. Admitted From: Intrahospital Transfer Plans for Post Hospital Care: Transfer Other History of Present Illness: Mr. Gilliland is a 62 year old male who presented to the hospital on 11/05/2017 with thoughts of suicide and intoxicated on alcohol. He denies any suicide attempt at this time but states he had thoughts and was making plans to kill himself. He was detoxed on the medical unit prior to being admitted to [facility]A psychiatric unit. I asked him what has been going on in his life that he had thought about killing himself, he stated "I have made a huge mess of my life". He states that he is isolated and does not talk to anybody in his family has not talked to them for years. He feels hopeless, helpless, sad lonely, low- energy, does not feel like doing anything used to do. His recent stressor that "put him over the edge" were having issues is current living situation where he had bedbugs. He states that having bedbugs, [facility] would not transport him to his appointments and he did not have a bus pass. He felt increasing stress he also owed [facility] money. He endorses having problems sleeping having anxiety at night and racing thoughts, not being able to calm down worrying about situations in his life. He denies any delusional thoughts. When I ask him if he is seeing things other people do not see he states that he sees cartoons on the k[place] occasionally. He denies any auditory hallucinations. He states he has been overall fairly compliant and taking his medications from [facility] but states that for the last 3 or 4 months he has been treated drinking a 12 pack of beer day. "I am in doing that to treat my anxiety ". Past Med Surg Social Fam HX - Past Medical History Medical history: COPD, coronary artery disease, hepatitis, hypertension, thyroid disease, other - Past Psychiatric History Psychiatric history: Reports: anxiety, depression, previous psychiatric hospitalization Family psychiatric history: No Family History of Suicide: None - Past Surgical History Surgical History: angioplasty/stent, appendectomy, cholecystectomy, orthopedic, other, other - Social History Smoking Status: Current every day smoker Smokeless Tobacco Status: No (Not while on the unit, he is utilizing and nicotine supplement) Alcohol use: heavy Drug use: none, other (History of extensive substance abuse, but none in the past 20 years except for alcohol) Occupational status: disabled Current living situation: Home - Independent Activity Level: Independent ambulation Recent Out of Country Travel Within the Last 8 Weeks: No - Family History Mother Living Status: Still Living Hx Family Cardiac Disorders: Yes (afib) Father Adopted: [employer]: Son Living Status: Age at : 64 Cause of : Heart Failure Hx Family Cardiac Disorders: Yes Hx Family Respiratory Disorders: No Hx Family Cancer: No Hx Family GI Disorders: No Hx Family Genitourinary Disorders: No Hx Family Endocrine Disorder: No Hx Family Musculoskeletal Disorders: No Hx Family Neuromuscular Disorders: No Hx Family Neurologic Disorders: No Hx Family HEENT Disorders: No Hx Family Autoimmune Disorders: No Hx Family Reproductive Disorders: No Hx Family Psychosocial Disorders: No Hx Family Medical Disorders: No Medications & Allergies Apixaban [Eliquis] 5 mg PO BID 06/22/15 [History] Diltiazem HCl [Cardizem Cd] 360 mg PO DAILY 06/22/15 [History] Metoprolol [Lopressor] 25 mg PO BID 06/22/15 [History] Quetiapine Fumarate [Seroquel] 200 mg PO HS 10/21/15 [History] Amiodarone [Cordarone] 200 mg PO DAILY 03/04/16 [History] Aspirin 81 mg PO DAILY 03/04/16 [History] DULoxetine [Cymbalta] 60 mg PO BID 03/04/16 [History] Mirtazapine [Remeron] 45 mg PO HS 03/04/16 [History] Docusate [Colace] 100 mg PO BID #30 capsule 03/06/16 [Rx] Furosemide [Lasix] 20 mg PO DAILY 11/25/16 [History] Thiamine (B-1) [Vitamin B-1] 100 mg PO DAILY #30 tablet 11/30/16 [Rx] Buspirone HCl [Buspar] 10 mg PO BID 11/06/17 [History] Meclizine HCl [Verticalm] 25 mg PO TID 11/06/17 [History] 3 Allergy/AdvReac Type Severity Reaction Status Date / Time Tetanus Vaccines and Toxoid AdvReac Intermediate Fever Verified 06/22/15 14:01 [Tetanus Vaccines & Toxoid] Review of Systems Psychiatric: Reports: depression, anxiety, abnormal sleep pattern, suicidal ideation, anhedonia, difficulty concentrating, hopelessness, irritability, mood swings Mental Status Exam Patient orientation: Yes Person, Yes Time, Yes Place, Yes Circumstance Level of alertness: Alert, Follows commands Patient appearance: Unkempt, Disheveled Behavior: anxious, withdrawn Psychomotor activity: Normal Eye contact: Fleeting Contact Mood description: Depressed Affect description: congruent with mood, flat Speech pattern: Normal rate, Normal rhythm, Normal tone Speech volume: Normal Thought process: Intact, Linear Thought content: Yes Suicidal ideation Attention span: Capable of Focused Attention Memory description: Grossly Intact Patient reliability: Reliable Historian Intelligence estimate: Average Judgment: Fair Insight: Partial Exam - HEENT Head exam IM: Present: atraumatic, normocephalic - Respiratory Respiratory exam IM: Present: prolonged expiratory phase Results - Vital Signs Vital signs: Temp Pulse Resp BP 98.0 F 16 16 112/80 11/11/17 09:00 11/11/17 09:00 11/11/17 09:00 11/11/17 09:00 Assessment and Plan (1) Major depress dis, severe Current visit: Yes Status: Acute Plan: Admit inpatient for safety and stabilization, Close observation, Encourage participation in unit milieu, Group Therapy, Monitor sleep, Monitor appetite Risks, benefits, side effects, alternatives discussed w/pt: Yes ( Medication alterations probable) Patient agreeable to treatment: Yes Plans for Post Hospital Care: Transfer Other Estimated Length of Stay (Days): 7 (2) Alcohol dependence Current visit: Yes Status: Acute Plan: Admit inpatient for safety and stabilization, Close observation, Encourage participation in unit milieu, Group Therapy, Monitor sleep, Other ( encourage 12 step program once discahrged) Risks, benefits, side effects, alternatives discussed w/pt: Yes Patient agreeable to treatment: Yes Plans for Post Hospital Care: Transfer Other Estimated Length of Stay (Days): 7 Qualifiers: Substance use status: alcohol-induced mood disorder Qualified Code(s): F10.24 - Alcohol dependence with alcohol-induced mood disorder
[2017-11-11] MEDS: hydrOXYzine pamoate 25 MG CAPSULE PO PRN ×2 (15:57→19:11)
[2017-11-11] MEDS: Mirtazapine 15 MG TABLET PO SCH (21:10)
[2017-11-11] MEDS: traZODone 50 MG TABLET PO PRN (22:24)
[2017-11-12] MEDS: Aspirin 81 MG TAB.CHEW PO SCH (09:03)
[2017-11-12] MEDS: Furosemide 20 MG TABLET PO SCH (09:03)
[2017-11-12] MEDS: *HR* Amiodarone 200 MG TABLET PO SCH (09:04)
[2017-11-12] MEDS: Thiamine (B-1) 100 MG TABLET PO SCH (09:04)
[2017-11-12] MEDS: Apixaban 5 MG TABLET PO SCH ×2 (09:04→20:49)
[2017-11-12] MEDS: Diltiazem CD (24hr) 180 MG CAPSULE PO SCH (09:04)
[2017-11-12] MEDS: Nicotine 21 MG PATCH.TD24 TD SCH (09:05)
--- NOTE | 2017-11-12 10:19 | Psychiatry Progress Note ---
Date of Encounter: 11/12/17 Time of Encounter: 10:10 Subjective Interval history: Patient tells me "I'm still feeling pretty hopeless". He tells me that he did take my advice from the previous day and he took a shower and shaved. He proceeded to the tell me that he felt better, "Like I accomplished something". He told me he had a hard time sleeping, and he did not take any Vistaril because it does not help with his anxiety it makes him "feel more uptight". It was noted and documented that he had slept most of the previous day which is possibly why he did not sleep last night. I talked to him about increasing his activity in the unit and going to groups participating in doing things; being active and getting out of bed to increase endorphins and possibly sleep better at night. He told me he was very stressed out about his current housing and potentially being discharged. He said he was felt he was not stable enough to be discharged and he was still having thoughts of dying. He had no active plans for suicide but still felt hopeless and helpless and not seeing anything positive for his future. He also talked about how great his life used to be in [place]. He is explained to me how he used to have a beautiful home and and had money and that no one around [facility] understands how nice life can be compared to how his life used to be. He states this is part of his depression, how his current situation comparing it to how he used to live. He denies any auditory or visual hallucinations. Review of Systems Psychiatric: Reports: depression, anxiety, abnormal sleep pattern, suicidal ideation, anhedonia, difficulty concentrating, hopelessness, irritability, mood swings Objective: Exam Patient orientation: Yes Person, Yes Place Level of alertness: Follows commands Patient appearance: Appropriate, Well Groomed Behavior: anxious Psychomotor activity: Normal Eye contact: Fleeting Contact Mood description: Depressed Affect description: congruent with mood Speech pattern: Normal rate, Normal rhythm, Normal tone Speech volume: Normal Thought process: Intact, Linear Thought content: Yes Intact (but still has thoughts of dying) Judgment: Limited Insight: Partial Results - Vital Signs Vital Signs: Temp Pulse Resp BP 97.4 F L 72 18 123/84 11/11/17 21:00 11/11/17 21:00 11/11/17 21:00 11/11/17 21:00 - Labs Labs: Laboratory Results - last 24 hr 11/11/17 13:09 TSH 9.364 H Assessment and Plan (1) Major depress dis, severe Current visit: Yes Status: Acute Plan: Continue hospitalization, Close observation, Suicide Precautions per unit protocol, Encourage participation in unit milieu, Group Therapy, Monitor sleep Risks, benefits, side effects, alternatives discussed w/pt: Yes (Medication alterations probable) Patient agreeable to treatment: Yes (2) Alcohol dependence Current visit: Yes Status: Acute Risks, benefits, side effects, alternatives discussed w/pt: Yes Patient agreeable to treatment: Yes Qualifiers: Substance use status: alcohol-induced mood disorder Qualified Code(s): F10.24 - Alcohol dependence with alcohol-induced mood disorder Consult Discharge Plan - Plan Additional Instructions: Patient is very unmotivated to do anything for himself. He is possibly still experiencing withdraw from alcohol. I've asked the unit social media marketer to give him a list of potential drug and alcohol rehab facilities he could discharge to , focusing on him and his sobriety and further therapy once discharged. Referrals: [facility] [Outside] - 11/20/17 2:00 pm (The above appointment is with Macarena Berry for outpatient substance abuse and mental health counseling services. You will also see Adelaida Cesar for outpatient psychiatric assessment and medication management services on 12/01/2017 at 2:00 PM. Due to previous missed appointments, you must keep this appointment or you will not be rescheduled for any future appointments.)
[2017-11-12] MEDS: Ibuprofen 400 MG TABLET PO PRN (14:53)
[2017-11-12] MEDS: Saline Nasal Spray 44 ML BOTTLE NS PRN ×3 (16:15→21:59)
[2017-11-12] MEDS: traZODone 50 MG TABLET PO PRN (20:49)
[2017-11-12] MEDS: Mirtazapine 15 MG TABLET PO SCH (20:52)
[2017-11-13] MEDS: Saline Nasal Spray 44 ML BOTTLE NS PRN ×4 (04:13→20:55)
[2017-11-13] MEDS: Ibuprofen 400 MG TABLET PO PRN ×3 (06:16→21:00)
[2017-11-13] MEDS: *HR* Amiodarone 200 MG TABLET PO SCH (08:00)
[2017-11-13] MEDS: Apixaban 5 MG TABLET PO SCH ×2 (08:00→20:59)
[2017-11-13] MEDS: Thiamine (B-1) 100 MG TABLET PO SCH (08:00)
[2017-11-13] MEDS: Diltiazem CD (24hr) 180 MG CAPSULE PO SCH (08:01)
[2017-11-13] MEDS: Aspirin 81 MG TAB.CHEW PO SCH (08:02)
[2017-11-13] MEDS: Furosemide 20 MG TABLET PO SCH (08:02)
[2017-11-13] MEDS: Nicotine 21 MG PATCH.TD24 TD SCH (08:02)
--- NOTE | 2017-11-13 16:11 | Psychiatry Progress Note ---
Date of Encounter: 11/13/17 Time of Encounter: 15:40 Subjective Interval history: When I met with the patient today and asked how he was doing he stated "I have tried to take every suggestion you made, but nothing seems to be working". He states that he had little sleep last evening, only having slept 2 hours this morning after taking the BuSpar. (staff have documented he slept 6+ hours) Hhe states that he has not called any rehab programs. He is waiting to hear from [facility]. I reminded him that [facility] was highly unlikely secondary to the debt that he has their, as well as the way in which he left there program. He had been encouraged to call other rehab programs to find a spot for discharge. He said he would today. I talked to him more about being proactive about helping himself in moving forward as program, he replied to me "you're a downer". He states he is feeling very anxious, that the BuSpar 10 mg twice a day was not doing very much for his anxiety in the midafternoon. He stated that he could not use Vistaril which he had reported previously to me, as it has the opposite effect of making him agitated. I talked to him about increasing his BuSpar to 3 times a day, targeting his anxieties. He was agreeable to this. He is still feeling low energy, tired and not feeling like doing anything. Struggling in going to groups; having a difficult time with attention and concentration. I talked to further about his TSH lab result coming back showing that he was hypothyroid. He had a history of diagnosis, but was not on any supplementation. I explained to him symptoms of hypothyroidism and how it very much mimic much of what he was going to have been going through in regards to his mood. He told me that he had been instructed by years ago to stop taking the thyroid medication that 'it's overprescribed'. He states that he wish he had not done that now. He was agreeable to restarting thyroid supplementation; levothyroxine 25 g a day. I reminded him again to call rehabs to see what he could find in regards to therapy and housing once he was discharged. He denied any suicidal/homicidal ideation. He denied any auditory or visual hallucinations. Review of Systems Psychiatric: Reports: depression, anxiety, abnormal sleep pattern, suicidal ideation, anhedonia, difficulty concentrating, hopelessness, irritability, mood swings Objective: Exam Patient orientation: Yes Person, Yes Time, Yes Place Level of alertness: Alert Patient appearance: Unkempt Behavior: anxious Psychomotor activity: Normal Eye contact: Minimal Contact Mood description: Anxious Affect description: congruent with mood Speech pattern: Normal rate, Normal rhythm, Normal tone Speech volume: Normal Thought process: Linear (but not working toward goals in therapy. Focused on helplessneess.) Thought content: Yes Intact Judgment: Fair Insight: Partial Results - Vital Signs Vital Signs: Temp Pulse Resp BP 97 F L 79 16 132/83 11/13/17 08:21 11/13/17 08:21 11/13/17 08:21 11/13/17 08:21 Assessment and Plan (1) Major depress dis, severe Current visit: Yes Status: Acute Plan: Continue hospitalization, Close observation, Encourage participation in unit milieu, Group Therapy, Monitor sleep Risks, benefits, side effects, alternatives discussed w/pt: Yes (increase BuSpar to 10 mg po tid) Patient agreeable to treatment: Yes (2) Alcohol dependence Current visit: Yes Status: Acute Plan: Continue hospitalization, Close observation, Encourage participation in unit milieu, Group Therapy, Monitor sleep Risks, benefits, side effects, alternatives discussed w/pt: Yes (Needs to actively call rehab centers for placement.) Patient agreeable to treatment: Yes Qualifiers: Substance use status: alcohol-induced mood disorder Qualified Code(s): F10.24 - Alcohol dependence with alcohol-induced mood disorder Consult Discharge Plan - Plan Additional Instructions: Patient is very unmotivated to do anything for himself. He is possibly still experiencing withdraw from alcohol. I've asked the unit social science professor to give him a list of potential drug and alcohol rehab facilities he could discharge to , focusing on him and his sobriety and further therapy once discharged. Referrals: [facility] [Outside] - 11/20/17 2:00 pm (The above appointment is with Macarena Berry for outpatient substance abuse and mental health counseling services. You will also see Adelaida Cesar for outpatient psychiatric assessment and medication management services on 12/01/2017 at 2:00 PM. Due to previous missed appointments, you must keep this appointment or you will not be rescheduled for any future appointments.)
[2017-11-13] MEDS: Mirtazapine 15 MG TABLET PO SCH (20:59)
[2017-11-13] MEDS: traZODone 50 MG TABLET PO PRN (20:59)
[2017-11-14] MEDS: Furosemide 20 MG TABLET PO SCH (08:26)
[2017-11-14] MEDS: Aspirin 81 MG TAB.CHEW PO SCH (08:27)
[2017-11-14] MEDS: Thiamine (B-1) 100 MG TABLET PO SCH (08:27)
[2017-11-14] MEDS: Diltiazem CD (24hr) 180 MG CAPSULE PO SCH (08:27)
[2017-11-14] MEDS: *HR* Amiodarone 200 MG TABLET PO SCH (08:27)
[2017-11-14] MEDS: Apixaban 5 MG TABLET PO SCH ×2 (08:27→20:59)
[2017-11-14] MEDS: Nicotine 21 MG PATCH.TD24 TD SCH (08:28)
[2017-11-14] MEDS: Levothyroxine 25 MCG TABLET PO SCH (08:39)
--- NOTE | 2017-11-14 15:03 | Psychiatry Progress Note ---
Date of Encounter: 11/14/17 Time of Encounter: 14:55 Subjective Interval history: "It is like the floodgates opened up. I slept" Patient states that he slept really well last night and he felt a shift in his mood and energy. (nursing reports that he slept straight 7 hours.) He has decreased thoughts of dying today after he woke up and started his day. He is feeling more like himself, as he used to be years ago. He denies any side effects of medication. She denies any suicidal or homicidal intent today. He denies any auditory or visual hallucinations today. He has energy and feels less pessimistic. He talks to me about feeling frustrated over stopping the thyroid medication. He thinks that had a large effect on his mood and his physical wellbeing. He has been restarted on the Levothyroxine. He thinks it maybe what has helped him to feel better and be more hopeful. Review of Systems Psychiatric: Reports: depression, anxiety, abnormal sleep pattern, suicidal ideation, anhedonia, difficulty concentrating, hopelessness, irritability, mood swings Objective: Exam Patient orientation: Yes Person, Yes Time, Yes Place, Yes Circumstance Level of alertness: Alert Patient appearance: Appropriate, Well Groomed Behavior: calm Psychomotor activity: Normal Eye contact: Maintains Eye Contact Mood description: Euthymic/stable Affect description: other (bright) Speech pattern: Normal rate, Normal rhythm, Normal tone Speech volume: Normal Thought process: Intact, Logical, Linear Thought content: Yes Intact Judgment: Fair Insight: Partial Results - Vital Signs Vital Signs: Temp Pulse Resp BP 97.4 F L 85 18 114/78 11/14/17 09:00 11/14/17 09:00 11/14/17 09:00 11/14/17 09:00 Assessment and Plan (1) Major depress dis, severe Current visit: Yes Status: Acute Plan: Continue hospitalization, Close observation, Suicide Precautions per unit protocol, Encourage participation in unit milieu, Group Therapy, Monitor sleep Risks, benefits, side effects, alternatives discussed w/pt: Yes (Continue current med regimen) Patient agreeable to treatment: Yes (2) Alcohol dependence Current visit: Yes Status: Acute Risks, benefits, side effects, alternatives discussed w/pt: Yes Patient agreeable to treatment: Yes Qualifiers: Substance use status: alcohol-induced mood disorder Qualified Code(s): F10.24 - Alcohol dependence with alcohol-induced mood disorder Consult Discharge Plan - Plan Additional Instructions: Referrals: [facility] [Outside] - 11/20/17 2:00 pm (The above appointment is with Macarena Berry for outpatient substance abuse and mental health counseling services. You will also see Adelaida Cesar for outpatient psychiatric assessment and medication management services on 12/01/2017 at 2:00 PM. Due to previous missed appointments, you must keep this appointment or you will not be rescheduled for any future appointments.)
[2017-11-14] MEDS: Saline Nasal Spray 44 ML BOTTLE NS PRN ×2 (15:57→21:03)
[2017-11-14] MEDS: Ibuprofen 400 MG TABLET PO PRN (17:25)
[2017-11-14] MEDS: Mirtazapine 15 MG TABLET PO SCH (20:59)
[2017-11-14] MEDS: traZODone 50 MG TABLET PO PRN (20:59)
[2017-11-15] MEDS: Levothyroxine 25 MCG TABLET PO SCH (06:00)
[2017-11-15] MEDS: Ibuprofen 400 MG TABLET PO PRN ×3 (06:00→20:15)
[2017-11-15] MEDS: Saline Nasal Spray 44 ML BOTTLE NS PRN ×4 (06:00→22:17)
[2017-11-15] MEDS: Diltiazem CD (24hr) 180 MG CAPSULE PO SCH (08:17)
[2017-11-15] MEDS: *HR* Amiodarone 200 MG TABLET PO SCH (08:17)
[2017-11-15] MEDS: Apixaban 5 MG TABLET PO SCH ×2 (08:18→20:15)
[2017-11-15] MEDS: Nicotine 21 MG PATCH.TD24 TD SCH (08:18)
[2017-11-15] MEDS: Furosemide 20 MG TABLET PO SCH (08:18)
[2017-11-15] MEDS: Aspirin 81 MG TAB.CHEW PO SCH (08:18)
[2017-11-15] MEDS: Thiamine (B-1) 100 MG TABLET PO SCH (08:18)
--- NOTE | 2017-11-15 09:21 | Psychiatry Progress Note ---
Date of Encounter: 11/15/17 Time of Encounter: 09:10 Subjective Interval history: "I am somewhat optimistic". Patient states that even though he was denied going to [facility] for drug and alcohol counseling, he thinks that he will be accepted to the program called [facility]'. He talked to them yesterday and believes he is on a waiting list, "looks good that I will get in there". He states that he has had this big shift in his mood and thought process, feeling much less depressed. He states the increasing BuSpar to 3 times a day did help with his afternoon anxiety. He is feeling much more positive and future oriented. He states "It might be psychosomatic about the thyroid thing, but I think it is helping out". He denies any side effects of his medications. He read the paperwork on hypothyroidism and is even more convinced that that was a huge contributor to his depression and what was going on his life. He denies any suicidal/homicidal ideation. He denies any auditory or visual hallucinations. He slept 8 hours last night which is a good improvement. He is feeling much more energized and calm. Review of Systems Psychiatric: Reports: depression, anxiety, abnormal sleep pattern, suicidal ideation, anhedonia, difficulty concentrating, hopelessness, irritability, mood swings Objective: Exam Patient orientation: Yes Person, Yes Place, Yes Circumstance Level of alertness: Alert Patient appearance: Appropriate Behavior: calm Psychomotor activity: Normal Eye contact: Maintains Eye Contact Mood description: Euthymic/stable Affect description: congruent with mood Speech pattern: Normal rate, Normal rhythm, Normal tone Speech volume: Normal Thought process: Intact Thought content: Yes Intact Judgment: Good Insight: Partial Results - Vital Signs Vital Signs: Temp Pulse Resp BP 97.4 F L 69 16 131/81 11/15/17 08:20 11/15/17 08:20 11/15/17 08:20 11/15/17 08:20 Assessment and Plan (1) Major depress dis, severe Current visit: Yes Status: Acute Plan: Continue hospitalization, Close observation, Encourage participation in unit milieu, Group Therapy, Monitor sleep Risks, benefits, side effects, alternatives discussed w/pt: Yes (Continue current medications as written) Patient agreeable to treatment: Yes (2) Alcohol dependence Current visit: Yes Status: Acute Plan: Continue hospitalization Risks, benefits, side effects, alternatives discussed w/pt: Yes Patient agreeable to treatment: Yes (Thinks he found a rehab facility for further treatment) Qualifiers: Substance use status: alcohol-induced mood disorder Qualified Code(s): F10.24 - Alcohol dependence with alcohol-induced mood disorder Consult Discharge Plan - Plan Additional Instructions: Referrals: [facility] [Outside] - 11/20/17 2:00 pm (The above appointment is with Macarena Berry for outpatient substance abuse and mental health counseling services. You will also see Adelaida Cesar for outpatient psychiatric assessment and medication management services on 12/01/2017 at 2:00 PM. Due to previous missed appointments, you must keep this appointment or you will not be rescheduled for any future appointments.)
[2017-11-15] MEDS: Mirtazapine 15 MG TABLET PO SCH (20:14)
[2017-11-15] MEDS: traZODone 50 MG TABLET PO PRN (20:16)
[2017-11-16] MEDS: Ibuprofen 400 MG TABLET PO PRN ×2 (07:30→17:49)
[2017-11-16] MEDS: Saline Nasal Spray 44 ML BOTTLE NS PRN ×2 (07:30→17:49)
[2017-11-16] MEDS: Levothyroxine 25 MCG TABLET PO SCH (07:30)
[2017-11-16] MEDS: Nicotine 21 MG PATCH.TD24 TD SCH (09:32)
[2017-11-16] MEDS: *HR* Amiodarone 200 MG TABLET PO SCH (09:33)
[2017-11-16] MEDS: Thiamine (B-1) 100 MG TABLET PO SCH (09:34)
[2017-11-16] MEDS: Aspirin 81 MG TAB.CHEW PO SCH (09:34)
[2017-11-16] MEDS: Diltiazem CD (24hr) 180 MG CAPSULE PO SCH (09:34)
[2017-11-16] MEDS: Furosemide 20 MG TABLET PO SCH (09:34)
[2017-11-16] MEDS: Apixaban 5 MG TABLET PO SCH ×2 (09:34→21:06)
--- NOTE | 2017-11-16 12:55 | Psychiatry Progress Note ---
Date of Encounter: 11/16/17 Time of Encounter: 12:35 Subjective Interval history: "I am feeling anxious, which makes me depressed because I do not want to feel anxious". Patient states today that he is not feeling as good as he did yesterday; feeling quite anxious and nervous about his situation. He states he knows it is a process to continue to move forward, but frustrated that he did not maintain it is more than 24 hours, makes them depressed. He talks about going through life feeling anxious and depressed since the of his son. He is worried that it will never be resolved. He states he never experienced this prior to his sons overdose , but it is the issue that he has never resolved and it has caused his whole world to fall apart. He tells me he does not feel as bad today as he had when he came in, but he still wishes the great feelings he had yesterday would have lasted. He states he is more optimistic. He is looking forward to potentially getting into this rehab program. He tells me he slept well which continues to be an improvement. He talks to me about knowing that he needs to get back into a 12 step program, to get a sponsor when he gets out of here. He is starting to put plans together to get his life back in order. He denies any current suicidal homicidal ideation. He denies any auditory or visual hallucinations. Review of Systems Psychiatric: Reports: depression, anxiety, abnormal sleep pattern, suicidal ideation, anhedonia, difficulty concentrating, hopelessness, irritability, mood swings Objective: Exam Patient orientation: Yes Person, Yes Place, Yes Circumstance Level of alertness: Alert Patient appearance: Well Groomed Behavior: anxious Psychomotor activity: Normal Eye contact: Maintains Eye Contact Mood description: Anxious Affect description: congruent with mood Speech pattern: Normal rate, Normal rhythm, Normal tone Speech volume: Normal Thought process: Intact, Linear, Goal Oriented Thought content: Yes Intact Judgment: Fair Insight: Partial Results - Vital Signs Vital Signs: Temp Pulse Resp BP 98.5 F 71 18 128/75 11/16/17 09:00 11/16/17 09:00 11/16/17 09:00 11/16/17 09:00 Assessment and Plan (1) Major depress dis, severe Current visit: Yes Status: Acute Plan: Continue hospitalization, Close observation, Suicide Precautions per unit protocol, Encourage participation in unit milieu, Group Therapy, Monitor sleep Risks, benefits, side effects, alternatives discussed w/pt: Yes (Continue current med regimen) Patient agreeable to treatment: Yes (2) Alcohol dependence Current visit: Yes Status: Acute Risks, benefits, side effects, alternatives discussed w/pt: Yes Patient agreeable to treatment: Yes Qualifiers: Substance use status: alcohol-induced mood disorder Qualified Code(s): F10.24 - Alcohol dependence with alcohol-induced mood disorder Consult Discharge Plan - Plan Additional Instructions: Referrals: [facility] [Outside] - 11/20/17 2:00 pm (The above appointment is with Macarena Berry for outpatient substance abuse and mental health counseling services. You will also see Adelaida Cesar for outpatient psychiatric assessment and medication management services on 12/01/2017 at 2:00 PM. Due to previous missed appointments, you must keep this appointment or you will not be rescheduled for any future appointments.)
[2017-11-16] MEDS: traZODone 50 MG TABLET PO PRN (20:32)
[2017-11-16] MEDS: Mirtazapine 15 MG TABLET PO SCH (20:33)
[2017-11-17] MEDS: Saline Nasal Spray 44 ML BOTTLE NS PRN ×3 (01:34→09:00)
[2017-11-17] MEDS: Levothyroxine 25 MCG TABLET PO SCH (05:51)
[2017-11-17] MEDS: *HR* Amiodarone 200 MG TABLET PO SCH (09:00)
[2017-11-17] MEDS: Aspirin 81 MG TAB.CHEW PO SCH (09:01)
[2017-11-17] MEDS: Nicotine 21 MG PATCH.TD24 TD SCH (09:01)
[2017-11-17] MEDS: Apixaban 5 MG TABLET PO SCH ×2 (09:02→21:21)
[2017-11-17] MEDS: Furosemide 20 MG TABLET PO SCH (09:03)
[2017-11-17] MEDS: Ibuprofen 400 MG TABLET PO PRN ×2 (09:05→21:31)
[2017-11-17] MEDS: Thiamine (B-1) 100 MG TABLET PO SCH (09:05)
[2017-11-17] MEDS: Diltiazem CD (24hr) 180 MG CAPSULE PO SCH (09:07)
--- NOTE | 2017-11-17 19:15 | Psychiatry Progress Note ---
Date of Encounter: 11/17/17 Time of Encounter: 18:00 Subjective Interval history: Patient tells me that he is on a wait list for [facility]. He states he could be admitted tomorrow or up to 30 days from today. He talks further about needing to get back in the 12 step meetings and to get a sponsor. He thinks that will help them a great deal. His energy has improved, his mood is more stable. His thoughts are more future oriented and appropriate. He is sleeping okay and eating fine. He talks about discharge planning. He denies any suicidal homicidal ideation. Review of Systems Psychiatric: Reports: depression, anxiety, abnormal sleep pattern, suicidal ideation, anhedonia, difficulty concentrating, hopelessness, irritability, mood swings Objective: Exam Patient orientation: Yes Person, Yes Place, Yes Circumstance Level of alertness: Alert Patient appearance: Appropriate, Well Groomed Behavior: calm Psychomotor activity: Normal Eye contact: Maintains Eye Contact Mood description: Euthymic/stable Affect description: congruent with mood Speech pattern: Normal rate, Normal rhythm, Normal tone Speech volume: Normal Thought process: Intact, Linear, Goal Oriented Thought content: Yes Intact Judgment: Fair Insight: Partial Results - Vital Signs Vital Signs: Temp Pulse Resp BP 97.4 F L 67 16 123/84 11/17/17 08:49 11/17/17 08:49 11/17/17 08:49 11/17/17 08:49 Assessment and Plan (1) Major depress dis, severe Status: Acute Plan: Continue hospitalization, Encourage participation in unit milieu, Group Therapy Risks, benefits, side effects, alternatives discussed w/pt: Yes ( increase BuSpar to 10 mg po tid) Patient agreeable to treatment: Yes (2) Alcohol dependence Status: Acute Risks, benefits, side effects, alternatives discussed w/pt: Yes (Wait list for inpatient rehab) Patient agreeable to treatment: Yes Qualifiers: Substance use status: alcohol-induced mood disorder Qualified Code(s): F10.24 - Alcohol dependence with alcohol-induced mood disorder Consult Discharge Plan - Plan Instructions: Depression (DC) Additional Instructions: Referrals: [facility] [Outside] - 11/20/17 2:00 pm (The above appointment is with Macarena Berry for outpatient substance abuse and mental health counseling services. [facility] Transportation Services will pick you up for and take you home from this appointment. You will also see Adelaida Cesar for outpatient psychiatric assessment and medication management services on 2017 at 2:00 PM. Due to previous missed appointments, you must keep this appointment or you will not be rescheduled for any future appointments.) Prescriptions: Buspirone HCl [Buspar] 10 mg PO TID 14 Days #84 tablet Levothyroxine [Synthroid] 25 mcg PO DAILY@0630 30 Days #30 tablet Saline Nasal [place] [[place] Nasal [place]] 2 spray NS Q2H PRN 30 Days #1 bottle PRN Reason: Congestion traZODone [TraZODone] 50 mg PO HS PRN 14 Days #14 tablet PRN Reason: Insomnia
[2017-11-17] MEDS: Mirtazapine 15 MG TABLET PO SCH (21:20)
[2017-11-18] MEDS: Ibuprofen 400 MG TABLET PO PRN ×2 (06:25→18:37)
[2017-11-18] MEDS: Levothyroxine 25 MCG TABLET PO SCH (06:25)
[2017-11-18] MEDS: Saline Nasal Spray 44 ML BOTTLE NS PRN ×3 (06:26→21:04)
[2017-11-18] MEDS: Aspirin 81 MG TAB.CHEW PO SCH (08:41)
[2017-11-18] MEDS: Apixaban 5 MG TABLET PO SCH ×2 (08:42→21:05)
[2017-11-18] MEDS: Thiamine (B-1) 100 MG TABLET PO SCH (08:42)
[2017-11-18] MEDS: *HR* Amiodarone 200 MG TABLET PO SCH (08:42)
[2017-11-18] MEDS: Diltiazem CD (24hr) 180 MG CAPSULE PO SCH (08:42)
[2017-11-18] MEDS: Nicotine 21 MG PATCH.TD24 TD SCH (08:42)
[2017-11-18] MEDS: Furosemide 20 MG TABLET PO SCH (08:44)
--- NOTE | 2017-11-18 14:42 | Psychiatry Progress Note ---
Date of Encounter: 11/18/17 Time of Encounter: 14:30 Subjective Interval history: Patient tells me "[facility] said I am fourth on the waiting list. I will get to go to rehab." Patient states that he is feeling much less depressed; no longer actively suicidal. He states the combination of BuSpar and trazodone have helped with his anxiety and sleep at night. He is going to groups and tells me that he is getting something out of it. He is nervous about discharge. He believes that he will be able to return to where he lives if [facility] can't take him directly there. He is getting final discharge plans ready for tomorrow. We talked about discharge medications and [facility] packing the meds and delivering them to [facility] as was previously arranged. This is being reestablished by the psychosocial rehabilitation counselor Krist[facility]. No auditory or visual hallucinations. No sign of psychosis. Review of Systems Psychiatric: Reports: depression, anxiety, abnormal sleep pattern, suicidal ideation, anhedonia, difficulty concentrating, hopelessness, irritability, mood swings Objective: Exam Patient orientation: Yes Person, Yes Time, Yes Place, Yes Circumstance Level of alertness: Alert Patient appearance: Appropriate Behavior: calm Psychomotor activity: Normal Eye contact: Maintains Eye Contact Mood description: Euthymic/stable Affect description: congruent with mood Speech pattern: Normal rate, Normal rhythm, Normal tone Speech volume: Normal Thought process: Intact, Linear, Goal Oriented Thought content: Yes Intact Judgment: Good Insight: Full Results - Vital Signs Vital Signs: Temp Pulse Resp BP 96.8 F L 69 16 106/73 11/18/17 08:51 11/18/17 08:51 11/18/17 08:51 11/18/17 08:51 Assessment and Plan (1) Major depress dis, severe Status: Acute Plan: Continue hospitalization (discharge tomorrow when housing resolved), Encourage participation in unit milieu, Group Therapy, Monitor sleep Risks, benefits, side effects, alternatives discussed w/pt: Yes (Continue current med regimen) Patient agreeable to treatment: Yes (2) Alcohol dependence Status: Acute Risks, benefits, side effects, alternatives discussed w/pt: Yes Patient agreeable to treatment: Yes Qualifiers: Substance use status: alcohol-induced mood disorder Qualified Code(s): F10.24 - Alcohol dependence with alcohol-induced mood disorder Consult Discharge Plan - Plan Instructions: Depression (DC) Additional Instructions: Referrals: [facility] [Outside] - 11/20/17 2:00 pm (The above appointment is with Macarena Berry for outpatient substance abuse and mental health counseling services. [facility] Transportation Services will pick you up for and take you home from this appointment. You will also see Adelaida Cesar for outpatient psychiatric assessment and medication management services on 2017 at 2:00 PM. Due to previous missed appointments, you must keep this appointment or you will not be rescheduled for any future appointments.) Prescriptions: Buspirone HCl [Buspar] 10 mg PO TID 14 Days #84 tablet Levothyroxine [Synthroid] 25 mcg PO DAILY@0630 30 Days #30 tablet Saline Nasal [place] [[place] Nasal [place]] 2 spray NS Q2H PRN 30 Days #1 bottle PRN Reason: Congestion traZODone [TraZODone] 50 mg PO HS PRN 14 Days #14 tablet PRN Reason: Insomnia
[2017-11-18] MEDS: Mirtazapine 15 MG TABLET PO SCH (21:04)
[2017-11-19] MEDS: Ibuprofen 400 MG TABLET PO PRN (05:39)
[2017-11-19] MEDS: Saline Nasal Spray 44 ML BOTTLE NS PRN ×3 (05:39→12:57)
[2017-11-19] MEDS: Levothyroxine 25 MCG TABLET PO SCH (05:39)
[2017-11-19] MEDS: Diltiazem CD (24hr) 180 MG CAPSULE PO SCH (09:17)
[2017-11-19] MEDS: Thiamine (B-1) 100 MG TABLET PO SCH (09:18)
[2017-11-19] MEDS: Aspirin 81 MG TAB.CHEW PO SCH (09:18)
[2017-11-19] MEDS: Furosemide 20 MG TABLET PO SCH (09:18)
[2017-11-19] MEDS: Apixaban 5 MG TABLET PO SCH (09:18)
[2017-11-19] MEDS: Nicotine 21 MG PATCH.TD24 TD SCH (09:19)
[2017-11-19 10:07] VITALS: BP 133/82
[2017-11-19] MEDS: *HR* Amiodarone 200 MG TABLET PO SCH (10:12)
--- NOTE | 2017-11-19 12:20 | Discharge Summary ---
Date of Encounter: 11/19/17 Time of Encounter: 12:10 Diagnosis - Discharge Diagnosis (1) Major depress dis, severe Status: Acute (2) Alcohol dependence Status: Acute Qualifiers: Substance use status: alcohol-induced mood disorder Qualified Code(s): F10.24 - Alcohol dependence with alcohol-induced mood disorder Medications - Discharge Medications Prescriptions: Buspirone HCl [Buspar] 10 mg PO TID 14 Days #84 tablet Levothyroxine [Synthroid] 25 mcg PO DAILY@0630 30 Days #30 tablet Saline Nasal [place] [[place] Nasal [place]] 2 spray NS Q2H PRN 30 Days #1 bottle PRN Reason: Congestion traZODone [TraZODone] 50 mg PO HS PRN 14 Days #14 tablet PRN Reason: Insomnia Apixaban [Eliquis] 5 mg PO BID 06/22/15 [History] Diltiazem HCl [Cardizem Cd] 360 mg PO DAILY 06/22/15 [History] Metoprolol [Lopressor] 25 mg PO BID 06/22/15 [History] Quetiapine Fumarate [Seroquel] 200 mg PO HS 10/21/15 [History] Amiodarone [Cordarone] 200 mg PO DAILY 03/04/16 [History] Aspirin 81 mg PO DAILY 03/04/16 [History] DULoxetine [Cymbalta] 60 mg PO BID 03/04/16 [History] Mirtazapine [Remeron] 45 mg PO HS 03/04/16 [History] Docusate [Colace] 100 mg PO BID #30 capsule 03/06/16 [Rx] Furosemide [Lasix] 20 mg PO DAILY 11/25/16 [History] Thiamine (B-1) [Vitamin B-1] 100 mg PO DAILY #30 tablet 11/30/16 [Rx] Meclizine HCl [Verticalm] 25 mg PO TID 11/06/17 [History] Buspirone HCl [Buspar] 10 mg PO TID 14 Days #84 tablet 11/19/17 [Rx] Levothyroxine [Synthroid] 25 mcg PO DAILY@0630 30 Days #30 tablet 11/19/17 [Rx] Saline Nasal [place] [[place] Nasal [place]] 2 spray NS Q2H PRN 30 Days #1 bottle 08/27 [Rx] traZODone [TraZODone] 50 mg PO HS PRN 14 Days #14 tablet 11/19/17 [Rx] 3 Allergy/AdvReac Type Severity Reaction Status Date / Time Tetanus Vaccines and Toxoid AdvReac Intermediate Fever Verified 06/22/15 14:01 [Tetanus Vaccines & Toxoid] Results Procedures and tests throughout hospitalization: Completed Lab Orders Category Date Time Status Thyroid Stimulating Hormone Routine Lab 11/11/17 13:09 Completed Provider Date of admission: 11/10/17 11:34 Primary care physician: PCP NONE Assessment and Plan - Patient/Caregiver Discharge Instructions Activity: resume usual activities as tolerated Diet: regular diet Additional Instructions: - Follow up Plan Follow up with: [facility] [Outside] - 11/20/17 2:00 pm (The above appointment is with Macarena Berry for outpatient substance abuse and mental health counseling services. [facility] Transportation Services will pick you up for and take you home from this appointment. You will also see Adelaida Cesar for outpatient psychiatric assessment and medication management services on 2017 at 2:00 PM. Due to previous missed appointments, you must keep this appointment or you will not be rescheduled for any future appointments.) Functional capacity at discharge: independent ambulation Disposition: Home Health Service Hospital Course Hospital course: Mr. Gilliland is a 62 year old male who was admitted after having suicidal thoughts. He admitted to having been in mental health treatment in the past and having issue with the agency and stopped going for follow up. He has many stresses in his life with his apartment being infested with bed bugs and drinking a case of beer a day, having been in sobriety for an extended period. He was depressed feeling hopeless and helpless. He talked about how his life took a turn down when his son of a drug overdose. He never recovered from that pain and depression. It ruined his career and marriage. He was currently going through withdrawal and was taking thiamine etc. He had problems sleeping and was difficult to understand that his mood was most likely related to his alcohol intake as it was a depressant. He also had a history of hypo-thyroid and was not taking thyroid supplement. Lab showed his TSH to be elevated and he consented to restart Levothyroxine 25 micrograms. Vistaril helped with his anxiety and it was increased and scheduled tid with good results. His group attendance improved and his sleep improved with Trazodone. He physically started to feel better and was gaining more insight into his substance abuse. His attendance and participation improved. He was attempting to get into a drug and alcohol rehab to reestablish into 12 step. He verbalized understanding that many of his symptoms may have been from excessive alcohol use , but also were the same as what is caused by hypo-thyroid. His discharge date approached. He was on a wait list for rehab, he had agreed to go back to his housing and knew how to get help cleaning up. His mental health agency was scheduled to do follow up with him and make sure he takes his meds routinely. His told me on the day of discharge "I'm anxious about leaving , but that's normal. I'm hopeful and feel much better." He denied SI/SIB/HI, A /V hallucinations. He was no longer depressed and verbalized having a better understanding about his medical issues and mental health. Time spent discussing smoking cessation with patient: 3 to 10 minutes Does patient wish to continue nicotine replacement upon disc: No - Time Spent with Patient Total time spent providing and/or coordinating discharge services: 25 min Less than 30 minutes Quality - Multiple Antipsychotics Patient discharged on 2 or more antipsychotic medications: No Procedures - Procedures Procedures: Medication Management, Crisis Stabilization, Supportive Therapy, Group Therapy, Psychoeducational Therapy Mental Status Exam - Mental Status Exam Patient orientation: Yes Person, Yes Time, Yes Place, Yes Circumstance Level of alertness: Alert Patient appearance: Appropriate, Well Groomed, Well-nourished Behavior: calm Psychomotor activity: Normal Eye contact: Maintains Eye Contact Mood description: Euthymic/stable Affect description: congruent with mood Speech pattern: Normal rate, Normal rhythm, Normal tone, Appropriate Speech Volume: Normal Thought process: Intact, Linear, Goal Oriented Thought Content: Yes Intact Judgment: Good Insight: Partial
== END 2017-11-19 14:05 | disposition home or self-care (01) | DRG 751 ==
LOC: 1ANU 11:34
PROVIDERS: ADMIT Psychiatry & Neurology Psychiatry; ATTEND Psychiatry & Neurology Psychiatry

== ENCOUNTER 2017-12-13 22:42 | Observation (INO) ==
[2017-12-13] MEDS ORDERED: predniSONE 20 MG TABLET PO ONE (23:01)
[2017-12-13] MEDS ORDERED: Ipratropium/Albuterol Neb 3 ML IH ONE (23:02)
[2017-12-13 23:23] LABS: Basophils % 0.4 %; Eosinophils # 0.1 K/mcL (0.0-0.6); Eosinophils % 1.2 %; Hematocrit 42.5 % (37.5-50.1); Hemoglobin 13.6 g/dL (12.9-16.9); Immature Granulocytes % 0.4 % (0-4); Immature Platelets 3.8 % (1.1-6.1); Lymphocytes % 28.6 %; Mean Corpuscular Volume 93.8 fL (83.0-100.0); Mean Platelet Volume 10.3 fL (9.4-12.4); Neutrophils # 3.9 K/mcL (1.6-8.9); Platelet Count 159 K/mcL (140-400); Red Blood Count 4.53 M/mcL (4.19-5.50); Red Cell Distribution Width 13.6 % (11.5-14.5); Segmented Neutrophils % 55.4 %
[2017-12-13 23:44] LABS: Bilirubin,Urine Small (Negative); Blood,Urine Negative (Negative); Clarity,Urine Cloudy (Clear); Color,Urine Dark Yellow (Yellow); Glucose,Urine (UA) Normal (Normal); Hyaline Casts,Urine None Seen per lpf (None-Few); Ketones,Urine Negative (Negative); Leukocyte Esterase,Urine Trace (Negative); Nitrite,Urine Negative (Negative); Protein,Urine 30 mg/dL (Neg-Trace); Specific Gravity,Urine > 1.030 (1.010-1.025); Squamous Epithelial Cell,Urine Many per lpf (None-Few); Urobilinogen,Urine Normal (Normal)
[2017-12-13 23:44] LABS: BUN/Creatinine Ratio 14 (6-26); Blood Urea Nitrogen 18 mg/dL (8-23); Calcium 8.6 mg/dL (8.6-10.3); Carbon Dioxide 29 mEq/L (23-29); Chloride 101 mEq/L (98-107); Glucose 204 mg/dL (70-105); Osmolality,Calculated 292 (280-300); Potassium 3.6 mEq/L (3.5-5.1); Sodium 137 mEq/L (136-145); eGFR For African Americans > 60 (> 60); eGFR For Non-African Americans 58 (> 60)
[2017-12-13 23:47] LABS: Bacteria,Urine Few per hpf (None-Few); RBC,Urine 0-3 per hpf (0-3)
[2017-12-14 00:03] LABS: Amphetamine Screen,Urine Negative ng/mL (Cutoff=1000); Barbiturate Screen,Urine Negative ng/mL (Cutoff=200); Benzodiazepines Screen,Urine Negative ng/mL (Cutoff=200); Cannabinoid Screen,Urine Negative ng/mL (Cutoff = 50); Cocaine Screen,Urine Negative ng/mL (Cutoff= 300); Opiate Screen,Urine Negative ng/mL (Cutoff=300); Phencyclidine Screen,Urine Negative ng/mL (Cutoff=25)
--- NOTE | 2017-12-14 01:07 | Emergency Department Note ---
Disposition Clinical Impression: Hypoxia, COPD exacerbation, Near syncope Disposition: Admitted As Inpatient Condition: Good Referrals: NONE,PCP [Primary Care Provider] - Forms: ED Satisfaction Letter, Work/School Release General Adult HPI - General Chief complaint: ED General Medical Stated complaint: Dizzy, Fell Down Time Seen by Provider: 12/13/17 22:49 Source: patient, EMS Limitations: no limitations Nursing Notes Reviewed: Yes Vital Signs Reviewed: Yes - History of Present Illness HPI Narrative: Patient presents today from [facility] for abnormal vital signs. The patient states he is trying to stand up when he became lightheaded and went down to his knees. The patient states that he otherwise got up and felt fine. They did vital signs showed that his pulse ox was in the low 80s as well as a systolic blood pressure of 90. EMS was called and the patient's blood pressure had improved but his pulse ox remained low in the mid 80s. Patient refused oxygen states that he had felt fine. Upon my evaluation the patient still states that she feels fine. Patient does not want medical treatment. Patient does have diffuse wheezing on exam. He has known history of COPD but states that he was not prescribed any albuterol or other breathing treatments. Patient has had a worsening cough in the last 2 days and has had clear sputum production. No fevers. No chest pain. Patient does not feel short of breath. Pain Scale: 0 - Related Data Home Medications Medication Instructions Recorded Confirmed Apixaban [Eliquis] 5 mg PO BID 06/22/15 11/10/17 Diltiazem HCl [Cardizem Cd] 360 mg PO DAILY 06/22/15 11/10/17 Metoprolol [Lopressor] 25 mg PO BID 06/22/15 11/10/17 Quetiapine Fumarate [Seroquel] 200 mg PO HS 10/21/15 11/10/17 Amiodarone [Cordarone] 200 mg PO DAILY 03/04/16 11/10/17 Aspirin 81 mg PO DAILY 03/04/16 11/10/17 DULoxetine [Cymbalta] 60 mg PO BID 03/04/16 11/10/17 Mirtazapine [Remeron] 45 mg PO HS 03/04/16 11/10/17 Furosemide [Lasix] 20 mg PO DAILY 11/25/16 11/10/17 Meclizine HCl [Verticalm] 25 mg PO TID 11/06/17 11/10/17 Previous Rx's Medication Instructions Recorded Docusate [Colace] 100 mg PO BID #30 capsule 03/06/16 Thiamine (B-1) [Vitamin B-1] 100 mg PO DAILY #30 tablet 11/30/16 Buspirone HCl [Buspar] 10 mg PO TID 14 Days #84 tablet 11/19/17 Levothyroxine [Synthroid] 25 mcg PO DAILY@0630 30 Days #30 11/19/17 tablet Saline Nasal [place] [[place] Nasal 2 spray NS Q2H PRN 30 Days #1 11/19/17 [place]] bottle traZODone [TraZODone] 50 mg PO HS PRN 14 Days #14 tablet 11/19/17 Allergies Allergy/AdvReac Type Severity Reaction Status Date / Time Tetanus Vaccines and Toxoid AdvReac Intermediate Fever Verified 12/13/17 22:45 [Tetanus Vaccines & Toxoid] Review of Systems: CONSTITUTIONAL: No weight loss, fever, chills, weakness or fatigue. HEENT: Eyes: No visual changes. Ears, Nose, Throat: No hearing loss, difficulty talking or unable to swallow. SKIN: No rash or itching. CARDIOVASCULAR: No chest pain, chest pressure or chest discomfort. No palpitations or edema. RESPIRATORY: No shortness of breath, cough or sputum. GASTROINTESTINAL: No anorexia, nausea, vomiting or diarrhea. No abdominal pain or blood. GENITOURINARY: No burning on urination or hematuria. NEUROLOGICAL: Near syncope No headache, dizziness, paralysis, ataxia, numbness or tingling in the extremities. No change in bowel or bladder control. MUSCULOSKELETAL: No muscle pain, back pain, joint pain or stiffness. Past Medical History - Past Medical History Medical history: Reports: COPD, coronary artery disease, hepatitis, hypertension , thyroid disease, other Surgical history: Reports: angioplasty/stent, appendectomy, cholecystectomy, orthopedic, other, other Psychiatric history: Reports: anxiety, depression, previous psychiatric hospitalization - Social History Smoking Status: Current every day smoker Smokeless Tobacco Status: No (Not while on the unit, he is utilizing and nicotine supplement) Alcohol use: Reports: heavy Drug use: Reports: other Physical Exam General: Well appearing, nontoxic, no acute distress Head: Normocephalic Atraumatic Eyes: PERRL, EOMI ENT: Airway patent, no stridor Neck: supple, no meningismus Chest: Diffuse wheezing bilaterally Cardiac: Regular rate and rhythm, no murmurs, rubs or gallops Abdomen: soft, nontender, nondistended; no guarding, rebound, or tenderness to percussion Musculoskeletal: Calves symmetric, nontender, no palpable cord Skin: No rash, normal skin tone Neuro: Alert and Oriented to person, place, and time; No focal deficit, CN 2-12 symmetric and intact - General Limitations: no limitations General appearance: alert Course - Reevaluation(s) Reevaluation #1: Patient hypoxic requiring 2 L of nasal cannula and associated diffuse wheezing on exam. No infiltrate on chest x-ray. No elevated white count. No elevated temperature. Patient denies chest pain. Patient will be admitted for further evaluation of hypoxia as well as near-syncope. - Consultations Consultation #1: Discussed with Dr. Yost. Patient accepted for admission. Vital Signs Temperature 97.8 F 12/13/17 22:47 Pulse Rate 77 12/13/17 22:47 Respiratory Rate 18 12/13/17 22:47 Blood Pressure 106/68 12/13/17 22:47 O2 Sat by Pulse Oximetry 88 12/13/17 22:47 Temperature 97.8 F 12/13/17 22:47 Pulse Rate 74 12/14/17 01:38 Respiratory Rate 18 12/14/17 01:38 Blood Pressure 124/75 12/14/17 01:38 O2 Sat by Pulse Oximetry 91 12/14/17 01:38 Oxygen Delivery Oxygen Delivery Nasal Cannula Medical Decision Making - Medical Records Medical records reviewed: Yes I reviewed the patient's medical records. - Lab Data Lab results reviewed: Yes I reviewed the patient's lab results. Result diagrams: 12/13/17 22:50 12/13/17 22:50 Lab Results 12/13/17 12/13/17 12/13/17 Range/Units 22:50 22:50 22:50 WBC 7.0 (4.3-11.1) K/mcL RBC 4.53 (4.19-5.50) M/mcL Hgb 13.6 (12.9-16.9) g/dL Hct 42.5 (37.5-50.1) % MCV 93.8 (83.0-100.0) fL MCH 30.0 (28.0-33.3) pg MCHC 32.0 (31.6-35.5) g/dL RDW 13.6 (11.5-14.5) % Plt Count 159 (140-400) K/mcL MPV 10.3 (9.4-12.4) fL Immature Gran % 0.4 (0-4) % Seg Neutrophils % 55.4 % Lymphocytes % 28.6 % Monocytes % 14.0 % Eosinophils % 1.2 % Basophils % 0.4 % Neutrophils # 3.9 (1.6-8.9) K/mcL Lymphocytes # 2.0 (0.6-4.6) K/mcL Monocytes # 1.0 (0.0-1.3) K/mcL Eosinophils # 0.1 (0.0-0.6) K/mcL Basophils # 0.0 (0.0-0.2) K/mcL Immature Plt Fraction 3.8 (1.1-6.1) % Sodium 137 (136-145) mEq/L Potassium 3.6 (3.5-5.1) mEq/L Chloride 101 (98-107) mEq/L Carbon Dioxide 29 (23-29) mEq/L BUN 18 (8-23) mg/dL Creatinine 1.25 (0.70-1.30) mg/dL Est GFR ( Amer) > 60 (> 60) Est GFR (Non-Af Amer) 58 L (> 60) BUN/Creatinine Ratio 14 (6-26) Glucose 204 H (70-105) mg/dL Calculated Osmolality 292 (280-300) Calcium 8.6 (8.6-10.3) mg/dL Troponin I < 0.03 (< 0.04) ng/mL Urine Color (Yellow) Urine Clarity (Clear) Urine pH (5.0-8.0) pH Units Ur Specific [place] (1.010-1.025) Urine Protein (Neg-Trace) mg/dL Urine Glucose (UA) (Normal) mg/dL Urine Ketones (Negative) mg/dL Urine Blood (Negative) Urine Nitrite (Negative) Urine Bilirubin (Negative) Urine Urobilinogen (Normal) mg/dL Ur Leukocyte Esterase (Negative) Urine Microscopic RBC (0-3) per hpf Urine Microscopic WBC (0-3) per hpf Ur Squamous Epith Cells (None-Few) per lpf Urine Bacteria (None-Few) per hpf Hyaline Casts (None-Few) per lpf Ur Culture Indicated? (NO) Urine Opiates Screen (Cxvrjf=472) ng/mL Ur Barbiturates Screen (Zderki=335) ng/mL Ur Phencyclidine Scrn (Cutoff=25) ng/mL Ur Amphetamines Screen (Izcusl=5049) ng/mL U Benzodiazepines Scrn (Wdrble=345) ng/mL Urine Cocaine Screen (Cutoff= 300) ng/mL U Marijuana (THC) Screen (Cutoff = 50) ng/mL 12/13/17 12/13/17 Range/Units 23:15 23:15 WBC (4.3-11.1) K/mcL RBC (4.19-5.50) M/mcL Hgb (12.9-16.9) g/dL Hct (37.5-50.1) % MCV (83.0-100.0) fL MCH (28.0-33.3) pg MCHC (31.6-35.5) g/dL RDW (11.5-14.5) % Plt Count (140-400) K/mcL MPV (9.4-12.4) fL Immature Gran % (0-4) % Seg Neutrophils % % Lymphocytes % % Monocytes % % Eosinophils % % Basophils % % Neutrophils # (1.6-8.9) K/mcL Lymphocytes # (0.6-4.6) K/mcL Monocytes # (0.0-1.3) K/mcL Eosinophils # (0.0-0.6) K/mcL Basophils # (0.0-0.2) K/mcL Immature Plt Fraction (1.1-6.1) % Sodium (136-145) mEq/L Potassium (3.5-5.1) mEq/L Chloride (98-107) mEq/L Carbon Dioxide (23-29) mEq/L BUN (8-23) mg/dL Creatinine (0.70-1.30) mg/dL Est GFR ( Amer) (> 60) Est GFR (Non-Af Amer) (> 60) BUN/Creatinine Ratio (6-26) Glucose (70-105) mg/dL Calculated Osmolality (280-300) Calcium (8.6-10.3) mg/dL Troponin I (< 0.04) ng/mL Urine Color Dark Yellow (Yellow) Urine Clarity Cloudy A (Clear) Urine pH 6.0 (5.0-8.0) pH Units Ur Specific [place] > 1.030 H (1.010-1.025) Urine Protein 30 H (Neg-Trace) mg/dL Urine Glucose (UA) Normal (Normal) mg/dL Urine Ketones Negative (Negative) mg/dL Urine Blood Negative (Negative) Urine Nitrite Negative (Negative) Urine Bilirubin Small H (Negative) Urine Urobilinogen Normal (Normal) mg/dL Ur Leukocyte Esterase Trace H (Negative) Urine Microscopic RBC 0-3 (0-3) per hpf Urine Microscopic WBC 3-5 H (0-3) per hpf Ur Squamous Epith Cells Many H (None-Few) per lpf Urine Bacteria Few (None-Few) per hpf Hyaline Casts None Seen (None-Few) per lpf Ur Culture Indicated? NO. (NO) Urine Opiates Screen Negative (Fbbjkq=758) ng/mL Ur Barbiturates Screen Negative (Paljzb=847) ng/mL Ur Phencyclidine Scrn Negative (Cutoff=25) ng/mL Ur Amphetamines Screen Negative (Bnqcqn=1832) ng/mL U Benzodiazepines Scrn Negative (Zskfmz=803) ng/mL Urine Cocaine Screen Negative (Cutoff= 300) ng/mL U Marijuana (THC) Screen Negative (Cutoff = 50) ng/mL - Radiology Data Radiology results reviewed: Yes I reviewed the patient's radiology results. - EKG Data EKG #1 EKG attestation: Yes I reviewed and interpreted this EKG. EKG results narrative: EKG shows sinus rhythm with ventricular 77. WI interval 195. QRS 106. QTC 413. Patient has new Q-wave changes to leads 3 and aVF. Patient has diffuse T- wave flattening and inversions in V2 and V3. In comparison to 11/05/17. Patient has no elevations or depressions. Attestation Statement - Attestation Attestation: I, Baltazar Loya MD, personally evaluated this patient and discussed their management with the resident physician. I reviewed the resident's note and agree with the documented findings, medical decision making, and plan of care. 62-year-old male presents to the emergency department by ambulance with a complaint that he had an episode of dizziness. He states he stood up out of a chair and he got dizzy and lightheaded. He became weak and fell. He denies any injury from the fall. He states he has had similar episodes a few times in the past. No chest pain or palpitations. His blood pressure was low and also his oxygen saturation was low and he was sent here for evaluation. Patient has a history of COPD but is not on home oxygen or any treatments. States he does feel a little more short of breath usual. Some mild cough with clear sputum. No fever. On examination patient is a well-developed well-nourished well-appearing male in no acute distress. He is alert and oriented 3. There is no cyanosis or diaphoresis. Breath sounds are decreased bilaterally with scattered diffuse bilateral expiratory wheezes. Heart regular rate and rhythm. Abdomen is soft and nontender with normal bowel sounds. No gross focal neurological deficits. Labs reviewed. Chest x-ray negative. EKG shows a normal sinus rhythm with a heart rate of 77. No acute ST segment elevations or depressions. There is diffuse T-wave flattening and a Q-wave in lead 3 which was not present previously. Here in the emergency Department patient's oxygen saturation was in the upper 80s. He did drop down into the mid 80s with ambulation and with sleeping. The hospitalist, Dr. Yost, was consulted and accepted admission of the patient.
[2017-12-14] MEDS ORDERED: Naloxone 0.4 MG/ML INJ IVP PRN (01:44)
[2017-12-14] MEDS ORDERED: Ipratropium/Albuterol Neb 3 ML IH PRN (01:49)
--- NOTE | 2017-12-14 01:56 | Internal Med History&Physical ---
Date of Encounter: 12/14/17 Time of Encounter: 01:00 Assessment and Plan (1) Abnormal EKG Current visit: Yes Status: Acute Pt's EKG in ER show sinus rhythm, III, AVF q wave and T wave flat on V1-V6, significantly changed from that on 11/05/17. Pt denies chest pain. - Will place pt on cardiac monitoring. - Will repeat EKG in AM - Will track 3 sets of troponin - Will order Echo. - Consider consult cardio based on the results of above tests. (2) Alcoholism Current visit: No Status: Chronic Pt has hx of severe alcoholism. Per pt he stopped drinking alcohol for one month. Place pt on CIWA protocol (3) DVT prophylaxis Current visit: No Status: Acute Pt is on Eliquis. (4) Tobacco abuse Current visit: No Status: Acute Smoking cessation education, place pt on nicotine patch (5) Major depress dis, severe Current visit: No Status: Acute Cont home medications when verified by pharmacy (6) COPD exacerbation Current visit: Yes Status: Acute Pt has increased SOB, cough, increased wheezes. Desaturation. CXR negative. Consider COPD exacerbation - Check Flu test - Place pt on steroid and bronchodilator - O2 supportive treatment (7) Near syncope Current visit: Yes Status: Acute Probably due to recent COPD exacerbation and low saturation. Need to r/o cardio- neuro etiologies. - Cont cardiac monitoring to r/o arrythmia - Echo to r/o aortic stenosis, hypertrophic obstructive cardiomyopathy, pulmonary hypertension, etc. - Duplex carotid - Orthostatic vitals. (8) Atrial flutter Current visit: No Status: Chronic Now NSR. HR is well controlled. On Eliquis for AC Qualifiers: Atrial flutter type: atypical Qualified Code(s): I48.4 - Atypical atrial flutter Internal Medicine - H&P: HPI Chief complaint: Dizziness Admitted From: Long-term Nursing Facility Plans for Post Hospital Care: Transfer Psych Facility History of present illness: Mr. Gilliland is a 62 year old male with Hx of A Flutter, COPD, alcoholism, tobacco abuse, major depression, sent to ER from a detox facility for dizziness. Pt said he get cold recently and feels dizzy when stand up today. He was found hypotension and low saturation and was sent to ER. Per transfer note, his BP was 96/43 and SpO2 was 86% in [place] when he was sent from the facility. Pt has fever yesterday. He denies headache, chest pain, abd pain, nausea/vomiting, diarrhea, or urinating symptoms. He has mild SOB, cough with clear sputum. Pt has hx of COPD but not on any home meds or home O2. Past Med Surg Social Fam HX - Past Medical History Medical history: COPD, coronary artery disease, hepatitis, hypertension, thyroid disease, other Psychiatric history: anxiety, depression, previous psychiatric hospitalization - Past Surgical History Surgical History: angioplasty/stent, appendectomy, cholecystectomy, orthopedic, other, other - Social History Smoking Status: Current every day smoker Smokeless Tobacco Status: No (Not while on the unit, he is utilizing and nicotine supplement) Alcohol use: heavy Drug use: other - Family History Mother Living Status: Still Living Hx Family Cardiac Disorders: Yes (afib) Father Adopted: No Living Status: Hx Family Cardiac Disorders: Yes Hx Family Respiratory Disorders: No Hx Family Cancer: No Hx Family GI Disorders: No Hx Family Endocrine Disorder: No Hx Family Neuromuscular Disorders: No Hx Family Neurologic Disorders: No Hx Family HEENT Disorders: No Hx Family Autoimmune Disorders: No Internal Medicine - H&P: Meds Apixaban [Eliquis] 5 mg PO BID 06/22/15 [History] Diltiazem HCl [Cardizem Cd] 360 mg PO DAILY 06/22/15 [History] Metoprolol [Lopressor] 25 mg PO BID 06/22/15 [History] Quetiapine Fumarate [Seroquel] 200 mg PO HS 10/21/15 [History] Amiodarone [Cordarone] 200 mg PO DAILY 03/04/16 [History] Aspirin 81 mg PO DAILY 03/04/16 [History] DULoxetine [Cymbalta] 60 mg PO BID 03/04/16 [History] Mirtazapine [Remeron] 45 mg PO HS 03/04/16 [History] Docusate [Colace] 100 mg PO BID #30 capsule 03/06/16 [Rx] Furosemide [Lasix] 20 mg PO DAILY 11/25/16 [History] Thiamine (B-1) [Vitamin B-1] 100 mg PO DAILY #30 tablet 11/30/16 [Rx] Meclizine HCl [Verticalm] 25 mg PO TID 11/06/17 [History] Buspirone HCl [Buspar] 10 mg PO TID 14 Days #84 tablet 11/19/17 [Rx] Levothyroxine [Synthroid] 25 mcg PO DAILY@0630 30 Days #30 tablet 11/19/17 [Rx] Saline Nasal [place] [[place] Nasal [place]] 2 spray NS Q2H PRN 30 Days #1 bottle 08/27 [Rx] traZODone [TraZODone] 50 mg PO HS PRN 14 Days #14 tablet 11/19/17 [Rx] 3 Allergy/AdvReac Type Severity Reaction Status Date / Time Tetanus Vaccines and Toxoid AdvReac Intermediate Fever Verified 12/13/17 22:45 [Tetanus Vaccines & Toxoid] All Systems PM: A 10-system review of systems was performed and is negative for pertinent findings except as documented above in the HPI. - Constitutional Vitals: Temp Pulse Resp BP Pulse Ox 97.8 F 74 18 124/75 91 12/13/17 22:47 12/14/17 01:38 12/14/17 01:38 12/14/17 01:38 12/14/17 01:38 General appearance: Present: A&O X 3, no acute distress, answers questions appropriately - Head Head exam: Present: atraumatic, normocephalic - Eye Eye exam: Present: PERRL, conjuntiva pink, sclera anicteric Pupils: Present: PERRL - Neck Neck exam general surgery: Present: supple, trachea midline. Absent: lymphadenopathy - Respiratory Respiratory exam: Present: CTAB, wheezes (Diffused wheezes b/l). Absent: accessory muscle use, rales, rhonchi - Cardiovascular Cardiovascular exam: Present: RRR, +S1, +S2. Absent: diastolic murmur, gallop, rubs, systolic murmur - GI/Abdominal GI/Abdominal exam: Present: normal bowel sounds, soft, no peritoneal signs. Absent: distended, tenderness - Extremities Exam Extremities exam: Present: warm, radial pulses palpable and symmetrical. Absent : calf tenderness, cyanotic, pedal edema - Neurological Exam Neurological exam: Present: CN II-XII intact, oriented X3, no focal deficits. Absent: pronater drift, facial droop, speech deficit - Skin Skin exam: Present: dry, intact Internal Med - H&P Results - Labs CBC & Chem 7: 12/13/17 22:50 02/03/18 22:50 Labs: Short CBC 12/13/17 Range/Units 22:50 WBC 7.0 (4.3-11.1) K/mcL Hgb 13.6 (12.9-16.9) g/dL Hct 42.5 (37.5-50.1) % Plt Count 159 (140-400) K/mcL Neutrophils # 3.9 (1.6-8.9) K/mcL BMP 12/13/17 22:50 Sodium 137 Potassium 3.6 Chloride 101 Carbon Dioxide 29 BUN 18 Creatinine 1.25 Glucose 204 H Calcium 8.6 Cardiac Enzymes 12/13/17 Range/Units 22:50 Troponin I < 0.03 (< 0.04) ng/mL Urine 12/13/17 Range/Units 23:15 Urine Color Dark Yellow (Yellow) Urine Clarity Cloudy A (Clear) Urine pH 6.0 (5.0-8.0) pH Units Ur Specific [place] > 1.030 H (1.010-1.025) Urine Protein 30 H (Neg-Trace) mg/dL Urine Glucose (UA) Normal (Normal) mg/dL - EKG Data -: EKG Interpreted by Myself EKG shows normal: sinus rhythm Rate: normal - EKG Data Prior EKG available for review: yes When compared to previous EKG: there are significant changes Interpretation IM: ischemic changes - Impressions ITS Impressions Chest X-Ray 12/13/17 23:01 IMPRESSION: 1. No acute cardiopulmonary disease. D/ / Landon Freire MD / Landon Freire MD Interpreting Provider: Landon Freire MD
[2017-12-14] MEDS ORDERED: *HR* LORazepam 2 MG/ML VIAL IVP PRN ×3 (01:57)
[2017-12-14] MEDS ORDERED: traZODone 50 MG TABLET PO PRN (02:27)
[2017-12-14] MEDS ORDERED: Nicotine 14 MG PATCH.TD24 TD ONE (03:10)
[2017-12-14] MEDS: Ipratropium/Albuterol Neb 3 ML IH SCH ×4 (03:47→22:15)
[2017-12-14 03:50] LABS: Basophils % 0.3 %; Eosinophils % 0.3 %; Hemoglobin 12.8 g/dL (12.9-16.9); Immature Granulocytes % 0.5 % (0-4); Lymphocytes # 1.1 K/mcL (0.6-4.6); Lymphocytes % 17.8 %; Mean Corpuscular Hemoglobin 29.8 pg (28.0-33.3); Mean Corpuscular Volume 93.2 fL (83.0-100.0); Mean Platelet Volume 9.9 fL (9.4-12.4); Monocytes # 0.7 K/mcL (0.0-1.3); Monocytes % 10.9 %; Neutrophils # 4.5 K/mcL (1.6-8.9); Platelet Count 133 K/mcL (140-400); Red Blood Count 4.29 M/mcL (4.19-5.50); Red Cell Distribution Width 13.7 % (11.5-14.5); Segmented Neutrophils % 70.2 %
[2017-12-14 03:53] LABS: Hemoglobin A1C 6.5 %
[2017-12-14 04:06] LABS: BUN/Creatinine Ratio 16 (6-26); Blood Urea Nitrogen 16 mg/dL (8-23); Calcium 8.3 mg/dL (8.6-10.3); Carbon Dioxide 28 mEq/L (23-29); Chloride 102 mEq/L (98-107); Glucose 234 mg/dL (70-105); Magnesium 2.1 mg/dL (1.6-2.6); Osmolality,Calculated 289 (280-300); Sodium 135 mEq/L (136-145); eGFR For African Americans > 60 (> 60); eGFR For Non-African Americans > 60 (> 60)
[2017-12-14] MEDS: Levothyroxine 25 MCG TABLET PO SCH (05:54)
[2017-12-14] MEDS: Thiamine (B-1) 100 MG TABLET PO SCH (10:20)
[2017-12-14] MEDS: predniSONE 20 MG TABLET PO SCH (10:20)
[2017-12-14] MEDS: Apixaban 5 MG TABLET PO SCH ×2 (10:20→20:21)
[2017-12-14] MEDS: Vitamin B Complex/Vit C/Vit E 1 EACH TABLET PO SCH (10:21)
[2017-12-14] MEDS: Folic Acid 1 MG TABLET PO SCH (10:21)
[2017-12-14] MEDS: *HR* Amiodarone 200 MG TABLET PO SCH (10:21)
[2017-12-14] MEDS: Diltiazem CD (24hr) 180 MG CAPSULE PO SCH (10:21)
[2017-12-14] MEDS: Aspirin 81 MG TAB.CHEW PO SCH (10:22)
[2017-12-14] MEDS: Nicotine 14 MG PATCH.TD24 TD SCH (10:22)
--- NOTE | 2017-12-14 13:04 | Internal Med Progress Note ---
Date of Encounter: 12/14/17 Time of Encounter: 11:10 - Assessment and plan (1) Near syncope Current Visit: Yes Status: Acute Assessment and plan: Pt had near syncopal event prior to arrival. He denies chest pain or diaphoresis. Most likely due to COPD exacerbation and hypoxia. Chest xray negative for acute disease, bilateral carotids have nonstenotic plaque. Electrolytes are WNL, vitals are stable. Echocardiogram is ordered and pending. Orthostatic vitals are negative. Continue telemetry Echo results pending Monitor labs and vitals (2) Abnormal EKG Current Visit: Yes Status: Acute Assessment and plan: EKG shows NSR, V1-V6 T wave flattened. EKG significantly changed from EKG in October. Pt denies chest pain. Plan as above. Repeat EKG in the a.m. (3) COPD exacerbation Current Visit: Yes Status: Acute Assessment and plan: Pt reports increased SOB, non productive cough, and increased wheezing with hypoxia. Pt is requiring 02, does not wear 02 at home. Wheezing heard in all lung tubbs. Flu swab negative. Continue nebulizer treatments, po Prednisone, 02 as needed to maintain sats > 92 %. (4) Alcohol dependence Current Visit: Yes Status: Chronic Assessment and plan: Pt has not had a drink in 30 days. He is in a rehab facility currently. CIWA protocol is ordered. Pt denies withdrawl symptoms. Will d/c CIWA protocol tomorrow if he does not use it. 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 Continue home medications. (6) Tobacco abuse Current Visit: Yes Status: Chronic Assessment and plan: Chronic. Pt states that he only smokes 5 cigarettes/day. (7) Atrial flutter Current Visit: Yes Status: Chronic Assessment and plan: NSR, Continue Eliquis. Qualifiers: Atrial flutter type: atypical Qualified Code(s): I48.4 - Atypical atrial flutter (8) DVT prophylaxis Current Visit: Yes Status: Acute Assessment and plan: Continue Eliquis. - Time Spent With Patient less than 15 minutes - Subjective Interval history: Pt was seen and assessed at bedside at 1110 a.m. Pt reports that he had near sycope and COPD exacerbation that brought him here, but denies symptoms now. Pt reports non productive cough and URI symptoms and was found to have hypotension and hypoxia and was sent to the ER for evaluation. Pt states that he has not had a drink for at least 30 days and that he is not having withdrawl symptoms. - Constitutional Vitals: Temp Pulse Resp BP Pulse Ox 98.0 F 79 18 127/80 95 12/14/17 06:37 12/14/17 06:37 12/14/17 10:39 12/14/17 06:37 12/14/17 10:39 General appearance: Present: cooperative, A&O X 3, pleasant, no acute distress, answers questions appropriately - Head Head exam: Present: atraumatic, normal inspection, normocephalic - Eye Eye exam: Present: normal appearance, conjuntiva pink, sclera anicteric - Neck Neck exam general surgery: Present: normal inspection, supple, trachea midline. Absent: lymphadenopathy, tenderness - Respiratory Respiratory exam: Present: CTAB, wheezes. Absent: accessory muscle use, chest wall tenderness, decreased breath sounds, rales, respiratory distress, rhonchi - Cardiovascular Cardiovascular exam: Present: RRR, +S1, +S2. Absent: diastolic murmur, gallop, rubs, systolic murmur - GI/Abdominal GI/Abdominal exam: Present: normal bowel sounds, soft. Absent: distended, hepatomegaly, tenderness - Extremities Exam Extremities exam: Present: normal capillary refill, normal inspection, warm, radial pulses palpable and symmetrical. Absent: calf tenderness, cyanotic, pedal edema, tenderness - Neurological Exam Neurological exam: Present: alert, CN II-XII intact, oriented X3, no focal deficits. Absent: motor sensory deficit, facial droop, speech deficit - Skin Skin exam: Present: dry, intact, normal color, warm. Absent: rash Internal Medicine: Result - Labs CBC & Chem 7: 12/14/17 03:36 12/14/17 03:36 Labs: Short CBC 12/14/17 Range/Units 03:36 WBC 6.3 (4.3-11.1) K/mcL Hgb 12.8 L (12.9-16.9) g/dL Hct 40.0 (37.5-50.1) % Plt Count 133 L (140-400) K/mcL Neutrophils # 4.5 (1.6-8.9) K/mcL BMP 12/14/17 03:36 Sodium 135 L Potassium 4.0 Chloride 102 Carbon Dioxide 28 BUN 16 Creatinine 0.99 Glucose 234 H Calcium 8.3 L Cardiac Enzymes 12/14/17 12/14/17 Range/Units 03:36 10:34 Troponin I < 0.03 < 0.03 (< 0.04) ng/mL Consult Discharge Plan - Plan Referrals: NONE,PCP [Primary Care Provider] -
[2017-12-14] MEDS: Mirtazapine 15 MG TABLET PO SCH (20:21)
[2017-12-15] MEDS: Ipratropium/Albuterol Neb 3 ML IH SCH ×4 (03:59→21:22)
[2017-12-15] MEDS: Levothyroxine 25 MCG TABLET PO SCH (05:32)
[2017-12-15 05:50] LABS: Basophils % 0.2 %; Hematocrit 41.4 % (37.5-50.1); Hemoglobin 13.2 g/dL (12.9-16.9); Immature Granulocytes % 0.6 % (0-4); Lymphocytes # 2.3 K/mcL (0.6-4.6); Lymphocytes % 25.4 %; Mean Corpuscular HGB Conc 31.9 g/dL (31.6-35.5); Mean Corpuscular Hemoglobin 29.7 pg (28.0-33.3); Mean Platelet Volume 10.1 fL (9.4-12.4); Monocytes # 0.9 K/mcL (0.0-1.3); Monocytes % 9.6 %; Neutrophils # 5.8 K/mcL (1.6-8.9); Platelet Count 168 K/mcL (140-400); Red Blood Count 4.45 M/mcL (4.19-5.50); Red Cell Distribution Width 13.4 % (11.5-14.5); Segmented Neutrophils % 64.2 %
[2017-12-15 06:14] LABS: BUN/Creatinine Ratio 16 (6-26); Blood Urea Nitrogen 16 mg/dL (8-23); Calcium 8.6 mg/dL (8.6-10.3); Carbon Dioxide 27 mEq/L (23-29); Chloride 103 mEq/L (98-107); Glucose 243 mg/dL (70-105); Osmolality,Calculated 291 (280-300); Potassium 3.9 mEq/L (3.5-5.1); Sodium 136 mEq/L (136-145); eGFR For African Americans > 60 (> 60); eGFR For Non-African Americans > 60 (> 60)
[2017-12-15] MEDS: Diltiazem CD (24hr) 180 MG CAPSULE PO SCH (08:47)
[2017-12-15] MEDS: Aspirin 81 MG TAB.CHEW PO SCH (08:47)
[2017-12-15] MEDS: Vitamin B Complex/Vit C/Vit E 1 EACH TABLET PO SCH (08:48)
[2017-12-15] MEDS: Folic Acid 1 MG TABLET PO SCH (08:48)
[2017-12-15] MEDS: predniSONE 20 MG TABLET PO SCH (08:48)
[2017-12-15] MEDS: Thiamine (B-1) 100 MG TABLET PO SCH (08:48)
[2017-12-15] MEDS: Apixaban 5 MG TABLET PO SCH ×2 (08:48→21:51)
[2017-12-15] MEDS: *HR* Amiodarone 200 MG TABLET PO SCH (08:48)
[2017-12-15] MEDS: Nicotine 14 MG PATCH.TD24 TD SCH (08:48)
--- NOTE | 2017-12-15 11:15 | Discharge Summary ---
Date of Encounter: 12/15/17 Time of Encounter: 10:45 - Discharge Diagnosis (1) Near syncope Priority: Primary () Status: Acute Comments: Pt had near syncopal event prior to arrival. He denies chest pain or diaphoresis. Most likely due to COPD exacerbation and hypoxia. Chest xray negative for acute disease, bilateral carotids have nonstenotic plaque. Electrolytes are WNL, vitals are stable. Echocardiogram with LVEF 60-65% with mild concentric LVH. Moderately enlarged left atrial size, no significant valvular dysfunction. Orthostatic vitals are negative. Continue to treat COPD with nebulizers, by mouth steroids Obtain adequate by mouth hydration. (2) Abnormal EKG Priority: Secondary Status: Acute Comments: EKG shows NSR, V1-V6 T wave flattened. EKG significantly changed from EKG in October. Pt denies chest pain. Plan as above. Repeat EKG in the a.m. (3) COPD exacerbation Priority: Secondary Status: Acute Comments: Acute exacerbation. Pt reports increased SOB, non productive cough, and increased wheezing with hypoxia. Pt was requiring 02, does not wear 02 at home. Pt has been weaned from 02. Wheezing heard in all lung tubbs, improving. Flu swab negative. Continue nebulizer treatments, po Prednisone, Mucinex, 02 as needed to maintain sats > 92%. (4) Alcohol dependence Priority: Secondary Status: Chronic Comments: Pt has not had a drink in 30 days. He is in the rehab program at [facility] currently. CIDC protocol is ordered. Pt denies withdrawl symptoms. Pt has not utilized Ativan prn since admission. Qualifiers: Substance use status: alcohol-induced mood disorder Qualified Code(s): F10.24 - Alcohol dependence with alcohol-induced mood disorder (5) Major depress dis, severe Priority: Secondary Status: Chronic Comments: Chronic. Continue home medications. (6) Tobacco abuse Priority: Secondary Status: Chronic Comments: Pt smokes less than 5 cigarettes/day. He has declined nicotine replacement therapy (7) Atrial flutter Priority: Secondary Status: Chronic Comments: Currently NSR, continue anticoagulation and home dose of Eliquis. Qualifiers: Atrial flutter type: atypical Qualified Code(s): I48.4 - Atypical atrial flutter (8) DVT prophylaxis Priority: Secondary Status: Acute Comments: Continue Eliquis. - Discharge Medications Prescriptions: Ipratropium/Albuterol Neb [Duoneb] 3 ml IH [id number] PRN #60 inhsol PRN Reason: Shortness Of Breath/Wheezing Aspirin 81 mg PO DAILY #30 tab.chew Multivitamin with Folic Acid [Gnp One Daily Essential Tablet] 400 mcg PO DAILY # 30 tablet Nicotine Patch [Nicoderm] 14 mg TD DAILY #28 patch.td24 Home Medications: Apixaban [Eliquis] 5 mg PO BID 06/22/15 [History] Diltiazem HCl [Cardizem Cd] 360 mg PO DAILY 06/22/15 [History] Metoprolol [Lopressor] 25 mg PO BID 06/22/15 [History] Quetiapine Fumarate [Seroquel] 100 mg PO HS 10/21/15 [History] Amiodarone [Cordarone] 200 mg PO DAILY 03/04/16 [History] DULoxetine [Cymbalta] 60 mg PO BID 03/04/16 [History] Mirtazapine [Remeron] 45 mg PO HS 03/04/16 [History] Docusate [Colace] 100 mg PO BID #30 capsule 03/06/16 [Rx] Furosemide [Lasix] 20 mg PO DAILY 11/25/16 [History] Meclizine HCl [Verticalm] 25 mg PO DAILY PRN 11/06/17 [History] Buspirone HCl [Buspar] 10 mg PO TID 14 Days #84 tablet 11/19/17 [Rx] Levothyroxine [Synthroid] 25 mcg PO DAILY@0630 30 Days #30 tablet 11/19/17 [Rx] Saline Nasal [place] [[place] Nasal [place]] 2 spray NS Q2H PRN 30 Days #1 bottle 08/27 [Rx] traZODone [TraZODone] 50 mg PO HS PRN 14 Days #14 tablet 11/19/17 [Rx] Aspirin 81 mg PO DAILY #30 tab.chew 12/15/17 [Rx] Ipratropium/Albuterol Neb [Duoneb] 3 ml IH [id number] PRN #60 inhsol 12/15/17 [Rx] Multivitamin with Folic Acid [Gnp One Daily Essential Tablet] 400 mcg PO DAILY # 30 tablet 12/15/17 [Rx] Nicotine Patch [Nicoderm] 14 mg TD DAILY #28 patch.td24 12/15/17 [Rx] Allergies/Adverse Reactions: 3 Allergy/AdvReac Type Severity Reaction Status Date / Time Tetanus Vaccines and Toxoid AdvReac Intermediate Fever Verified 12/13/17 22:45 [Tetanus Vaccines & Toxoid] Date of admission: 12/14/17 01:56 Primary care physician: PCP NONE Consults: 12/14/17 01:57 Consult to Data Reporting Analyst [CONS] Routine Reason for SW Consult: Alcoholism Discharging clinician: Veronica Kunz Anticipated date of discharge: 12/15/17 - Patient Status Disposition: Home, Self-Care Condition: Good Overall status at discharge: patient is progressing back to baseline - Discharge Instructions Follow Up With: NONE,PCP [Non-Partnered Physician] - Additional Instructions: Take your medications as directed and use your nebulizer as needed REturn to the ER as needed for any other problems or concerns Return to your normal diet and activities as tolerated. Follow up with your PCP in the next 7-10 days for a recheck. - Diet and Activity Activity: increase activity as tolerated Diet: advance to your usual diet Hospital course: Mr. Gilliland is a 62 year old male - Time Spent with Patient Total time spent providing and/or coordinating discharge services: - Constitutional Vitals: Temp Pulse Resp BP Pulse Ox 97.3 F L 73 18 116/68 95 12/15/17 08:03 12/15/17 08:03 12/15/17 08:03 12/15/17 08:03 12/15/17 08:03 General appearance: Present: cooperative, A&O X 3, pleasant, no acute distress, answers questions appropriately - Head Head exam: Present: atraumatic, normal inspection, normocephalic - Eye Eye exam: Present: normal appearance, conjuntiva pink, sclera anicteric - Neck Neck exam general surgery: Present: normal inspection, supple, trachea midline. Absent: lymphadenopathy, tenderness - Respiratory Respiratory exam: Present: CTAB, wheezes. Absent: accessory muscle use, chest wall tenderness, rales, respiratory distress, rhonchi - Cardiovascular Cardiovascular exam: Present: RRR, +S1, +S2. Absent: diastolic murmur, gallop, rubs, systolic murmur - GI/Abdominal GI/Abdominal exam: Present: normal bowel sounds, soft. Absent: distended, hepatomegaly, tenderness - Extremities Exam Extremities exam: Present: normal capillary refill, warm, radial pulses palpable and symmetrical. Absent: calf tenderness, cyanotic, pedal edema, tenderness - Neurological Exam Neurological exam: Present: alert, oriented X3, no focal deficits. Absent: facial droop, speech deficit - Skin Skin exam: Present: dry, intact, normal color, warm. Absent: rash
[2017-12-15] MEDS: Mirtazapine 15 MG TABLET PO SCH (21:51)
[2017-12-16] MEDS: Ipratropium/Albuterol Neb 3 ML IH SCH ×4 (04:55→16:01)
[2017-12-16] MEDS: Levothyroxine 25 MCG TABLET PO SCH (06:01)
[2017-12-16] MEDS: Apixaban 5 MG TABLET PO SCH (08:56)
[2017-12-16] MEDS: Vitamin B Complex/Vit C/Vit E 1 EACH TABLET PO SCH (08:56)
[2017-12-16] MEDS: Thiamine (B-1) 100 MG TABLET PO SCH (08:56)
[2017-12-16] MEDS: Diltiazem CD (24hr) 180 MG CAPSULE PO SCH (08:56)
[2017-12-16] MEDS: Nicotine 14 MG PATCH.TD24 TD SCH (08:56)
[2017-12-16] MEDS: Aspirin 81 MG TAB.CHEW PO SCH (08:56)
[2017-12-16] MEDS: *HR* Amiodarone 200 MG TABLET PO SCH (08:57)
[2017-12-16] MEDS: predniSONE 20 MG TABLET PO SCH (08:57)
[2017-12-16] MEDS: Folic Acid 1 MG TABLET PO SCH (08:57)
[2017-12-16 16:10] VITALS: BP 140/79
--- NOTE | 2017-12-16 17:35 | Internal Med Progress Note ---
Date of Encounter: 12/16/17 Time of Encounter: 13:15 - Assessment and plan (1) COPD exacerbation Current Visit: Yes Status: Acute Assessment and plan: Improving. Patient was ready for discharge yesterday, discharge was held for repeat EKG in light of abnormal EKGs in the past. Patient is currently medically stable, being discharged with a short course of oral steroids along with prescriptions for nebulizer, DuoNeb's, Symbicort, nicotine transdermal patches. (2) Near syncope Current Visit: Yes Status: Acute Assessment and plan: Workup including echocardiogram, carotid Doppler, telemetry monitoring and serial troponins have remained negative. EKG is reviewed-showed nonspecific ST- T wave changes in precordial and lateral leads. EKG from this morning shows normal sinus rhythm, no acute ischemic changes. Patient is medically stable for discharge with outpatient follow-up. (3) Alcohol dependence Current Visit: Yes Status: Chronic Qualifiers: Substance use status: alcohol-induced mood disorder Qualified Code(s): F10.24 - Alcohol dependence with alcohol-induced mood disorder - Subjective Interval history: Reports feeling better. Improved dizziness. Denies chest pain, shortness of breath, palpitations. - Constitutional Vitals: Temp Pulse Resp BP Pulse Ox 97.9 F 73 16 140/79 99 12/16/17 16:06 12/16/17 16:06 12/16/17 16:06 12/16/17 16:06 12/16/17 16:06 General appearance: Present: A&O X 3, no acute distress, answers questions appropriately - Respiratory Respiratory exam: Present: CTAB, wheezes (Mild wheezing bilaterally). Absent: accessory muscle use, rales, rhonchi - Cardiovascular Cardiovascular exam: Present: RRR, +S1, +S2. Absent: diastolic murmur, gallop, rubs, systolic murmur - GI/Abdominal GI/Abdominal exam: Present: normal bowel sounds, soft, no peritoneal signs. Absent: distended, tenderness Internal Medicine: Result - Labs CBC & Chem 7: 12/15/17 05:19 12/15/17 05:19 Consult Discharge Plan - Plan Instructions: Prednisone (By mouth), Ipratropium/Albuterol (By breathing), Budesonide/Formoterol (By breathing), Chronic Obstructive Pulmonary Disease (DC) Additional Instructions: Take your medications as directed and use your nebulizer as needed REturn to the ER as needed for any other problems or concerns Return to your normal diet and activities as tolerated. Follow up with your PCP in the next 7-10 days for a recheck. Referrals: NONE,PCP [Non-Partnered Physician] - Prescriptions: Ipratropium/Albuterol Neb [Duoneb] 3 ml IH [id number] PRN #60 inhsol PRN Reason: Shortness Of Breath/Wheezing Aspirin 81 mg PO DAILY #30 tab.chew Budesonide/Formoterol 160/4.5 [Symbicort 160/4.5] 2 puff IH BIDR 30 Days hfa.aer.ad Multivitamin with Folic Acid [Gnp One Daily Essential Tablet] 400 mcg PO DAILY # 30 tablet Nicotine Patch [Nicoderm] 14 mg TD DAILY #28 patch.td24 predniSONE [PredniSONE] 40 mg PO DAILY #10 tablet
--- NOTE | 2017-12-16 19:42 | Electrocardiograph Report ---
[place] [id number] Test Date: 2017-12-16 Pat Name: Donn Gilliland Department: 113 Room: 3B Gender: M Active Directory Specialist: : 1955 Requested By: Veronica Kunz Order Number: [id number] Reading MD: Xiomy Allan Measurements Intervals [place] Rate: 74 P: 42 PA: 201 QRS: -14 QRSD: 110 T: 59 QT: 402 QTc: 429 Interpretive Statements SINUS RHYTHM NONSPECIFIC T-WAVE ABNORMALITY Electronically Signed On 12-16-2017 19:41:11 EST by Xiomy Allan
--- NOTE | 2017-12-16 20:17 | Electrocardiograph Report ---
[place] [id number] Test Date: 2017-12-13 Pat Name: Donn Gilliland Department: 104 Room: 3B Gender: M Wire Wheeler: : 1955 Requested By: Kulwinder Feldman Order Number: [id number] Reading MD: Isauro Denson MD Measurements Intervals [place] Rate: 72 P: 28 FL: 201 QRS: -22 QRSD: 104 T: 56 QT: 382 QTc: 407 Interpretive Statements SINUS RHYTHM INFERIOR MYOCARDIAL INFARCTION, PROBABLY OLD Electronically Signed On 12-16-2017 20:16:05 EST by Isauro Denson MD
--- NOTE | 2017-12-16 20:30 | Electrocardiograph Report ---
[place] [id number] Test Date: 2017-12-14 Pat Name: Donn Gilliland Department: 113 Room: 3B Gender: M Manager Community Development: : 1955 Requested By: Ina Baker Order Number: [id number] Reading MD: Isauro Denson MD Measurements Intervals [place] Rate: 73 P: 45 IN: 194 QRS: -30 QRSD: 105 T: 62 QT: 432 QTc: 459 Interpretive Statements SINUS RHYTHM INFERIOR MYOCARDIAL INFARCTION, PROBABLY OLD BASELINE ARTIFACT Electronically Signed On 12-16-2017 20:29:06 EST by Isauro Denson MD
== END 2017-12-16 18:06 | disposition home or self-care (01) ==
LOC: 3BNU 22:42 → EMEROO 22:42 → SUATTDRO 12-14 01:56 → 3BNU 12-14 02:23
PROVIDERS: ADMIT Pediatrics; ATTEND Internal Medicine

== ENCOUNTER 2017-12-22 10:47 | Inpatient (IN) ==
[2017-12-22] MEDS ORDERED: methylPREDNISolone 125 MG/2 ML VIAL IVP ONE (10:57)
[2017-12-22] MEDS ORDERED: Ipratropium/Albuterol Neb 3 ML IH ONE (10:57)
[2017-12-22] MEDS ORDERED: Albuterol 2.5 MG/3 ML NEBULIZER IH ONE ×2 (10:57→12:56)
[2017-12-22] MEDS ORDERED: 0.9 % Sodium Chloride 1,000 ML IVC ONE (10:57)
[2017-12-22 11:13] LABS: ABG Base Excess -1 mEq/L (-2 to 3); ABG HCO3 24 mEq/L (21-27); ABG Oxygen Saturation 100 % (95-98); ABG PCO2 43 mmHg (35-45); ABG PH 7.36 pH Units (7.32-7.45); ABG PO2 179 mmHg (85-104); ABG TCO2 26 mEq/L (20-26)
--- NOTE | 2017-12-22 11:27 | Emergency Department Note ---
Disposition Clinical Impression: Acute exacerbation of chronic obstructive airways disease, HCAP (healthcare- associated pneumonia) Disposition: Admitted As Inpatient Condition: Good Time of Disposition: 11:30 SOB HPI - General Chief Complaint: ED Shortness of Breath/Dyspnea Stated Complaint: ISIDRA Time Seen by Provider: 12/22/17 10:55 Source: patient, EMS Mode of arrival: ambulatory Limitations: no limitations Nursing Notes Reviewed: Yes Vital Signs Reviewed: Yes - History of Present Illness 62-year-old male presents emergency Department with concerns of difficulty in breathing. Patient states symptoms have worsened over the past week. He does have a history of severe COPD however he states that this feels mildly different than his previous COPD in that he is coughing more than he has in the past. Patient reports cough is productive of yellow-green sputum. He denies fever although he reports he has felt chills over the past few days. Denies nausea, vomiting, diarrhea. No recent trauma. He has a history of atrial flutter and is currently taking metoprolol, amiodarone, diltiazem as well as Eliquis. Patient satting 79% on initial evaluation by EMS. Patient states he syncopized yesterday, falling to his hands and knees although he states he woke on the floor. Denied chest pain at that time. - Related Data Home Medications Medication Instructions Recorded Confirmed Apixaban [Eliquis] 5 mg PO BID 06/22/15 12/22/17 Diltiazem HCl [Cardizem Cd] 360 mg PO DAILY 06/22/15 12/22/17 Metoprolol [Lopressor] 25 mg PO BID 06/22/15 12/22/17 Quetiapine Fumarate [Seroquel] 200 mg PO HS 10/21/15 12/22/17 Amiodarone [Cordarone] 200 mg PO DAILY 03/04/16 12/22/17 DULoxetine [Cymbalta] 60 mg PO BID 03/04/16 12/22/17 Mirtazapine [Remeron] 45 mg PO HS 03/04/16 12/22/17 Furosemide [Lasix] 20 mg PO DAILY 11/25/16 12/22/17 Meclizine HCl [Verticalm] 25 mg PO DAILY PRN 11/06/17 12/22/17 Previous Rx's Medication Instructions Recorded Docusate [Colace] 100 mg PO BID #30 capsule 03/06/16 Buspirone HCl [Buspar] 10 mg PO TID 14 Days #84 tablet 11/19/17 Levothyroxine [Synthroid] 25 mcg PO DAILY@0630 30 Days #30 11/19/17 tablet Saline Nasal [place] [[place] Nasal 2 spray NS Q2H PRN 30 Days #1 11/19/17 [place]] bottle traZODone [TraZODone] 50 mg PO HS PRN 14 Days #14 tablet 11/19/17 Aspirin 81 mg PO DAILY #30 tab.chew 12/15/17 Ipratropium/Albuterol Neb [Duoneb] 3 ml IH [id number] PRN #60 inhsol 12/15/17 Multivitamin with Folic Acid [Gnp 400 mcg PO DAILY #30 tablet 12/15/17 One Daily Essential Tablet] Nicotine Patch [Nicoderm] 14 mg TD DAILY #28 patch.td24 12/15/17 Budesonide/Formoterol 160/4.5 2 puff IH BIDR 30 Days hfa.aer.ad 12/16/17 [Symbicort 160/4.5] predniSONE [PredniSONE] 40 mg PO DAILY #10 tablet 12/16/17 Allergies Allergy/AdvReac Type Severity Reaction Status Date / Time Tetanus Vaccines and Toxoid AdvReac Intermediate Fever Verified 12/13/17 22:45 [Tetanus Vaccines & Toxoid] All systems ED: reviewed and negative except as stated. Review of Systems: As Per HPI Cardiovascular: Reports: palpitations, dyspnea on exertion, syncope. Denies: chest pain Past Medical History - Past Medical History Attestation: Yes The following information was validated with the patient. Source: patient Medical history: Reports: COPD, coronary artery disease, hepatitis, hypertension , thyroid disease, other Surgical history: Reports: angioplasty/stent, appendectomy, cholecystectomy, orthopedic, other, other Psychiatric history: Reports: anxiety, depression, previous psychiatric hospitalization - Social History Smoking Status: Current every day smoker Smokeless Tobacco Status: No (Not while on the unit, he is utilizing and nicotine supplement) Alcohol use: Reports: none Drug use: Reports: none Physical Exam General: Alert and in moderate respiratory distress Skin: Warm, dry, intact Head: Normocephalic and atraumatic Neck: Supple, trachea midline and no tenderness Cardiovascular: RRR, no murmur, normal perfusion Respiratory: Wheezing present in the bilateral posterior lung tubbs with minimal air movement. Musculoskeletal: Normal strength, no tenderness, swelling or deformity GI: Soft, nontender, nondistended. Bowel sounds present Neuro: A&O to person, place, time and situation. No focal deficits noted on exam Psychiatric: cooperative and appropriate mood and affect. - General Limitations: no limitations General appearance: alert Course Vital Signs Temperature 97.6 F 12/22/17 10:48 Pulse Rate 103 12/22/17 10:48 Respiratory Rate 22 12/22/17 10:48 Blood Pressure 115/79 12/22/17 10:48 O2 Sat by Pulse Oximetry 84 12/22/17 10:48 Temperature 97.6 F 12/22/17 10:48 Pulse Rate 104 12/22/17 15:40 Respiratory Rate 20 12/22/17 15:40 Blood Pressure 144/86 12/22/17 15:40 O2 Sat by Pulse Oximetry 90 12/22/17 16:34 Oxygen Delivery Oxygen Delivery Nasal Cannula Shortness of Breath/Dyspnea - [facility] Narrative Medical decision making narrative: Patient breathing improved after administration of albuterol in the emergency department. Patient started on antibiotics for possible pneumonia. Patient admitted to the hospitalist for further care and evaluation. - Medical Records Medical records reviewed: Yes I reviewed the patient's medical records. - Lab Data Lab results reviewed: Yes I reviewed the patient's lab results. Result diagrams: 12/22/17 11:31 12/22/17 12:27 Lab Results 12/22/17 12/22/17 12/22/17 Range/Units 11:08 11:23 11:31 WBC 22.4 H (4.3-11.1) K/mcL RBC 4.85 (4.19-5.50) M/mcL Hgb 14.1 (12.9-16.9) g/dL Hct 43.5 (37.5-50.1) % MCV 89.7 (83.0-100.0) fL MCH 29.1 (28.0-33.3) pg MCHC 32.4 (31.6-35.5) g/dL RDW 13.2 (11.5-14.5) % Plt Count 242 (140-400) K/mcL MPV 10.1 (9.4-12.4) fL Immature Gran % 0.7 (0-4) % Seg Neutrophils % 82.5 % Lymphocytes % 5.6 % Monocytes % 10.9 % Eosinophils % 0.0 % Basophils % 0.3 % Neutrophils # 18.5 H (1.6-8.9) K/mcL Lymphocytes # 1.3 (0.6-4.6) K/mcL Monocytes # 2.5 H (0.0-1.3) K/mcL Eosinophils # 0.0 (0.0-0.6) K/mcL Basophils # 0.1 (0.0-0.2) K/mcL Nucleated RBCs/100 WBC 0.1 H (0) /100 WBC PT (9.4-12.1) Seconds INR APTT (26.0-36.0) Seconds D-Dimer (0-500) ng/mLFEU Sample Site R Brach ABG pH 7.36 (7.32-7.45) pH Units ABG pCO2 43 (35-45) mmHg ABG pO2 179 H (85-104) mmHg ABG HCO3 24 (21-27) mEq/L ABG Total CO2 26 (20-26) mEq/L ABG O2 Saturation 100 H (95-98) % ABG Base Excess -1 (-2 to 3) mEq/L Deniz Test Positive O2 Delivery Device NRB Inspired O2 100.0 (1-15=lpm [id number]=%) Sodium (136-145) mEq/L Potassium (3.5-5.1) mEq/L Chloride (98-107) mEq/L Carbon Dioxide (23-29) mEq/L BUN (8-23) mg/dL Creatinine (0.70-1.30) mg/dL Est GFR ( Amer) (> 60) Est GFR (Non-Af Amer) (> 60) BUN/Creatinine Ratio (6-26) Glucose (70-105) mg/dL Calculated Osmolality (280-300) Lactic Acid (0.5-2.2) mmol/L Calcium (8.6-10.3) mg/dL Troponin I 0.03 (< 0.04) ng/mL B-Natriuretic Peptide (Less than 100) pg/mL Specimen Rejected 12/22/17 12/22/17 12/22/17 Range/Units 11:31 11:31 12:27 WBC (4.3-11.1) K/mcL RBC (4.19-5.50) M/mcL Hgb (12.9-16.9) g/dL Hct (37.5-50.1) % MCV (83.0-100.0) fL MCH (28.0-33.3) pg MCHC (31.6-35.5) g/dL RDW (11.5-14.5) % Plt Count (140-400) K/mcL MPV (9.4-12.4) fL Immature Gran % (0-4) % Seg Neutrophils % % Lymphocytes % % Monocytes % % Eosinophils % % Basophils % % Neutrophils # (1.6-8.9) K/mcL Lymphocytes # (0.6-4.6) K/mcL Monocytes # (0.0-1.3) K/mcL Eosinophils # (0.0-0.6) K/mcL Basophils # (0.0-0.2) K/mcL Nucleated RBCs/100 WBC (0) /100 WBC PT 16.4 H (9.4-12.1) Seconds INR 1.5 APTT 23.8 L (26.0-36.0) Seconds D-Dimer 1737 H (0-500) ng/mLFEU Sample Site ABG pH (7.32-7.45) pH Units ABG pCO2 (35-45) mmHg ABG pO2 (85-104) mmHg ABG HCO3 (21-27) mEq/L ABG Total CO2 (20-26) mEq/L ABG O2 Saturation (95-98) % ABG Base Excess (-2 to 3) mEq/L Deniz Test O2 Delivery Device Inspired O2 (1-15=lpm [id number]=%) Sodium (136-145) mEq/L Potassium (3.5-5.1) mEq/L Chloride (98-107) mEq/L Carbon Dioxide (23-29) mEq/L BUN (8-23) mg/dL Creatinine (0.70-1.30) mg/dL Est GFR ( Amer) (> 60) Est GFR (Non-Af Amer) (> 60) BUN/Creatinine Ratio (6-26) Glucose (70-105) mg/dL Calculated Osmolality (280-300) Lactic Acid (0.5-2.2) mmol/L Calcium (8.6-10.3) mg/dL Troponin I (< 0.04) ng/mL B-Natriuretic Peptide 323 H (Less than 100) pg/mL Specimen Rejected Hemolyzed 12/22/17 12/22/17 12/22/17 Range/Units 12:27 12:27 15:03 WBC (4.3-11.1) K/mcL RBC (4.19-5.50) M/mcL Hgb (12.9-16.9) g/dL Hct (37.5-50.1) % MCV (83.0-100.0) fL MCH (28.0-33.3) pg MCHC (31.6-35.5) g/dL RDW (11.5-14.5) % Plt Count (140-400) K/mcL MPV (9.4-12.4) fL Immature Gran % (0-4) % Seg Neutrophils % % Lymphocytes % % Monocytes % % Eosinophils % % Basophils % % Neutrophils # (1.6-8.9) K/mcL Lymphocytes # (0.6-4.6) K/mcL Monocytes # (0.0-1.3) K/mcL Eosinophils # (0.0-0.6) K/mcL Basophils # (0.0-0.2) K/mcL Nucleated RBCs/100 WBC (0) /100 WBC PT (9.4-12.1) Seconds INR APTT (26.0-36.0) Seconds D-Dimer (0-500) ng/mLFEU Sample Site ABG pH (7.32-7.45) pH Units ABG pCO2 (35-45) mmHg ABG pO2 (85-104) mmHg ABG HCO3 (21-27) mEq/L ABG Total CO2 (20-26) mEq/L ABG O2 Saturation (95-98) % ABG Base Excess (-2 to 3) mEq/L Deniz Test O2 Delivery Device Inspired O2 (1-15=lpm [id number]=%) Sodium 132 L (136-145) mEq/L Potassium 4.4 (3.5-5.1) mEq/L Chloride 97 L (98-107) mEq/L Carbon Dioxide 25 (23-29) mEq/L BUN 14 (8-23) mg/dL Creatinine 0.87 (0.70-1.30) mg/dL Est GFR ( Amer) > 60 (> 60) Est GFR (Non-Af Amer) > 60 (> 60) BUN/Creatinine Ratio 16 (6-26) Glucose 182 H (70-105) mg/dL Calculated Osmolality 279 L (280-300) Lactic Acid 2.9 H 1.8 (0.5-2.2) mmol/L Calcium 9.0 (8.6-10.3) mg/dL Troponin I (< 0.04) ng/mL B-Natriuretic Peptide (Less than 100) pg/mL Specimen Rejected - Radiology Data Radiology results reviewed: Yes I reviewed the patient's radiology results. - EKG Data EKG attestation: Yes I reviewed and interpreted this EKG. EKG results narrative: Sinus tachycardia with a rate of 100 without evidence of STEMI with incomplete right bundle-branch block.
[2017-12-22 11:58] LABS: Basophils # 0.1 K/mcL (0.0-0.2); Basophils % 0.3 %; Hematocrit 43.5 % (37.5-50.1); Hemoglobin 14.1 g/dL (12.9-16.9); Immature Granulocytes % 0.7 % (0-4); Lymphocytes # 1.3 K/mcL (0.6-4.6); Lymphocytes % 5.6 %; Mean Corpuscular HGB Conc 32.4 g/dL (31.6-35.5); Mean Corpuscular Hemoglobin 29.1 pg (28.0-33.3); Mean Corpuscular Volume 89.7 fL (83.0-100.0); Mean Platelet Volume 10.1 fL (9.4-12.4); Monocytes # 2.5 K/mcL (0.0-1.3); Monocytes % 10.9 %; Neutrophils # 18.5 K/mcL (1.6-8.9); Nucleated Red Blood Cells 0.1 /100 WBC (0); Platelet Count 242 K/mcL (140-400); Red Blood Count 4.85 M/mcL (4.19-5.50); Red Cell Distribution Width 13.2 % (11.5-14.5); Segmented Neutrophils % 82.5 %
[2017-12-22 12:53] LABS: INR 1.5; Prothrombin Time 16.4 Seconds (9.4-12.1)
[2017-12-22 12:56] LABS: Activated Partial Thrombo Time 23.8 Seconds (26.0-36.0)
[2017-12-22] MEDS ORDERED: Vancomycin 1,500 MG in D5% in Water 250 ML IVPB STA (12:56)
[2017-12-22] MEDS ORDERED: Cefepime HCl 2,000 MG in Water for inj. (sterile) 20 ML 20 ML IVP STA (12:56)
[2017-12-22] MEDS ORDERED: Levofloxacin 750 MG/150 ML 750 MG/150 ML BAG IVPB ONE (12:56)
[2017-12-22 13:05] LABS: BUN/Creatinine Ratio 16 (6-26); Blood Urea Nitrogen 14 mg/dL (8-23); Carbon Dioxide 25 mEq/L (23-29); Chloride 97 mEq/L (98-107); Glucose 182 mg/dL (70-105); Osmolality,Calculated 279 (280-300); Potassium 4.4 mEq/L (3.5-5.1); Sodium 132 mEq/L (136-145); eGFR For African Americans > 60 (> 60); eGFR For Non-African Americans > 60 (> 60)
[2017-12-22] MEDS ORDERED: Ibuprofen 800 MG TABLET PO ONE (13:32)
[2017-12-22] MEDS ORDERED: Albuterol 2.5 MG/3 ML NEBULIZER ONE (13:32)
[2017-12-22] MEDS: Nicotine 14 MG PATCH.TD24 TD SCH (16:00)
--- NOTE | 2017-12-22 20:51 | Internal Med History&Physical ---
<Cb Cardoso - Last Filed: 12/22/17 21:14> Date of Encounter: 12/22/17 Time of Encounter: 20:51 Assessment and Plan (1) Acute exacerbation of chronic obstructive airways disease Current visit: Yes Status: Acute Pt with Hx of COPD exacerbation. Pt reports worsening SOB, increase in sputum production and change in sputum character to yellow green. Will Start pt on broad spectrum abx, Start IV solumedrol at 60 Q8H, Duonebs Q4H , and continue home symbicort. (2) HCAP (healthcare-associated pneumonia) Current visit: Yes Status: Acute Patient recently admitted for COPD exacerbation 1 week ago. WBC 22.4, Tachypnic 22, Tachycardic 103 LA 2.9] CXR: "Mild patchy bilateral findings suggesting bronchitis/bronchiolitis and possible developing bronchopneumonia." CTA: "Parenchymal lung disease having the appearance of pneumonia. Atypical organisms including mycobacterial are considered. Mildly enlarged lymph nodes are presumably reactive" Will start broad spectrum ABX with plans to de-escalate. Received Cefepime, vanc, levaquin in ED. Continue Cefepime, Vanc, Levaquin. (3) Sepsis Current visit: No Status: Acute Pt meets criteria for sepsis based on: WBC 22.4, Tachypnic 22, Tachycardic 103 LA 2.9 See HCAP for plan Qualifiers: Sepsis type: sepsis due to unspecified organism Qualified Code(s): A41.9 - Sepsis, unspecified organism (4) Atrial flutter Current visit: No Status: Chronic On home amiodarone, BB, Cardizem, ellequis currently RRR. continue home meds. Qualifiers: Atrial flutter type: atypical Qualified Code(s): I48.4 - Atypical atrial flutter (5) CAD (coronary artery disease) Current visit: No Status: Chronic Pt with hx of CAD s/p stent. Pt on BB, ASA, not on statin. No record of allergy Last lipid profile in october of 2015 showed Cholesterol 147, LDL 105, vldl 22 , HDL 20, Triglycerides 111. Will discuss starting statin with patient. Continue home meds. Qualifiers: Coronary Disease-Associated Artery/Lesion type: [place] artery [place] vs. transplanted heart: [place] heart Associated angina: without angina Qualified Code(s): I25.10 - Atherosclerotic heart disease of [place] coronary artery without angina pectoris (6) Major depress dis, severe Current visit: No Status: Chronic Patient on a number of psych meds for depression and insomina. Patient home regimen: Seroquel 200mg HS, Trazadone 50mg HS PRN, Mirtazapine 45mg HS, Cymbalta 60mg BID , Buspar 10mg TID. Continue home meds. Recheck EKG for QT prolongation in the AM. (7) Tobacco abuse Current visit: No Status: Chronic Continue nicotine patch (8) Hypothyroidism Current visit: Yes Status: Chronic Continue home synthroid Qualifiers: Hypothyroidism type: unspecified Qualified Code(s): E03.9 - Hypothyroidism , unspecified (9) Alcohol dependence Current visit: No Status: Chronic Pt currently in Rehab program at [facility]. Last drink over a month ago. Pt did not require any ativan during last admission a week ago. No need for CIWA protocol at this time. continue to monitor. Qualifiers: Substance use status: alcohol-induced mood disorder Qualified Code(s): F10.24 - Alcohol dependence with alcohol-induced mood disorder (10) DVT prophylaxis Current visit: No Status: Acute continue home Elequis Internal Medicine - H&P: HPI Chief complaint: ISIDRA Admitted From: Emergency Dept Plans for Post Hospital Care: Home History of present illness: Mr. Gilliland is a 62 year old male c PMHx of COPD not on home o2, CAD, Hepatitis C , HTN, Hypothyroidism, A Flutter who reports to the ED c/o progressiely worsening SOB x 1 week. Patient was recently admitted for COPD exacerbation on . Patient reports increased SOB since discharge. Patient denies missing doses of medications. Patient reports increased productive cough with yellow/ green sputum. Patient denies fevers, but reports chills. Upon presentation patient was sating at 79, was tachypnic, and tacycardic. No fever. No chest pain , abd pn, N, V, D. Patient started on O2 via NC. Patient now sating well in the 90s on 2L NC. Patient had recent work up for syncope which was negative. Patient had CXR and and CTA which showed probable PNA. No PE. Patient received breathing treatment in the ED with improvement. Past Med Surg Social Fam HX - Past Medical History Medical history: COPD, coronary artery disease, hepatitis, hypertension, thyroid disease, other Psychiatric history: anxiety, depression, previous psychiatric hospitalization - Past Surgical History Surgical History: angioplasty/stent, appendectomy, cholecystectomy, orthopedic, other, other - Social History Smoking Status: Current every day smoker Smokeless Tobacco Status: No (Not while on the unit, he is utilizing and nicotine supplement) Alcohol use: none Drug use: none - Family History Mother Living Status: Still Living Hx Family Cardiac Disorders: Yes (afib) Father Adopted: [place]: Son Gilliland Family Member Ethnicity: Non- Living Status: Age at : 62 Cause of : cardiac disease Hx Family Cardiac Disorders: Yes Hx Family Respiratory Disorders: No Hx Family Cancer: No Hx Family GI Disorders: No Hx Family Genitourinary Disorders: No Hx Family Endocrine Disorder: No Hx Family Musculoskeletal Disorders: No Hx Family Neuromuscular Disorders: No Hx Family Neurologic Disorders: No Hx Family HEENT Disorders: No Hx Family Autoimmune Disorders: No Hx Family Reproductive Disorders: No Hx Family Psychosocial Disorders: No Hx Family Medical Disorders: No Internal Medicine - H&P: Meds Apixaban [Eliquis] 5 mg PO BID 06/22/15 [History] Diltiazem HCl [Cardizem Cd] 360 mg PO DAILY 06/22/15 [History] Metoprolol [Lopressor] 25 mg PO BID 06/22/15 [History] Quetiapine Fumarate [Seroquel] 200 mg PO HS 10/21/15 [History] Amiodarone [Cordarone] 200 mg PO DAILY 03/04/16 [History] DULoxetine [Cymbalta] 60 mg PO BID 03/04/16 [History] Mirtazapine [Remeron] 45 mg PO HS 03/04/16 [History] Docusate [Colace] 100 mg PO BID #30 capsule 03/06/16 [Rx] Furosemide [Lasix] 20 mg PO DAILY 11/25/16 [History] Meclizine HCl [Verticalm] 25 mg PO DAILY PRN 11/06/17 [History] Buspirone HCl [Buspar] 10 mg PO TID 14 Days #84 tablet 11/19/17 [Rx] Levothyroxine [Synthroid] 25 mcg PO DAILY@0630 30 Days #30 tablet 11/19/17 [Rx] Saline Nasal [place] [[place] Nasal [place]] 2 spray NS Q2H PRN 30 Days #1 bottle 08/27 [Rx] traZODone [TraZODone] 50 mg PO HS PRN 14 Days #14 tablet 11/19/17 [Rx] Aspirin 81 mg PO DAILY #30 tab.chew 12/15/17 [Rx] Ipratropium/Albuterol Neb [Duoneb] 3 ml IH I1AERTY PRN #60 inhsol 12/15/17 [Rx] Multivitamin with Folic Acid [Gnp One Daily Essential Tablet] 400 mcg PO DAILY # 30 tablet 12/15/17 [Rx] Nicotine Patch [Nicoderm] 14 mg TD DAILY #28 patch.td24 12/15/17 [Rx] Budesonide/Formoterol 160/4.5 [Symbicort 160/4.5] 2 puff IH BIDR 30 Days hfa.aer.ad 12/16/17 [Rx] predniSONE [PredniSONE] 40 mg PO DAILY #10 tablet 12/16/17 [Rx] 3 Allergy/AdvReac Type Severity Reaction Status Date / Time Tetanus Vaccines and Toxoid AdvReac Intermediate Fever Verified 12/13/17 22:45 [Tetanus Vaccines & Toxoid] All Systems PM: A 10-system review of systems was performed and is negative for pertinent findings except as documented above in the HPI. - Constitutional Vitals: Temp Pulse Resp BP Pulse Ox 97.6 F 104 20 144/86 90 12/22/17 10:48 12/22/17 15:40 12/22/17 15:40 12/22/17 15:40 12/22/17 16:34 General appearance: Present: mild distress, A&O X 3, answers questions appropriately - Head Head exam: Present: atraumatic, normocephalic - Eye Eye exam: Present: PERRL, conjuntiva pink, sclera anicteric Pupils: Present: PERRL - Neck Neck exam general surgery: Present: lymphadenopathy, supple, trachea midline - Respiratory Respiratory exam: Present: decreased breath sounds, rhonchi, wheezes. Absent: accessory muscle use - Cardiovascular Cardiovascular exam: Present: RRR, +S1, +S2. Absent: diastolic murmur, gallop, rubs, systolic murmur - GI/Abdominal GI/Abdominal exam: Present: distended, normal bowel sounds, soft, no peritoneal signs. Absent: tenderness - Extremities Exam Extremities exam: Present: warm, radial pulses palpable and symmetrical. Absent : calf tenderness, cyanotic, pedal edema - Neurological Exam Neurological exam: Present: CN II-XII intact, oriented X3, no focal deficits. Absent: facial droop, speech deficit - Skin Skin exam: Present: dry, intact Internal Med - H&P Results - Labs CBC & Chem 7: 12/22/17 11:31 12/22/17 12:27 <Ricci Sneed - Last Filed: 12/23/17 01:39> Date of Encounter: 12/23/17 Internal Medicine - H&P: HPI History of present illness: Mr. Gilliland is a 62 year old male All Systems PM: A 10-system review of systems was performed and is negative for pertinent findings except as documented above in the HPI. - Constitutional Vitals: Temp Pulse Resp BP Pulse Ox 98.3 F 96 14 149/60 93 12/22/17 23:00 12/22/17 23:00 12/22/17 23:34 12/22/17 23:00 12/22/17 23:34 Internal Med - H&P Results - Labs CBC & Chem 7: 12/22/17 11:31 12/22/17 12:27 - Attending Attestation I examined this patient and my medical decision-making was reviewed with the Resident Physician. I agree with the documented findings, disposition and treatment plan as described except to the extent set forth below.
[2017-12-22] MEDS ORDERED: Vancomycin 1,500 MG in D5% in Water 250 ML IVPB SCH (21:00)
[2017-12-22] MEDS: Budesonide/Formoterol 160/4.5 MDI IH SCH (22:29)
[2017-12-22] MEDS: Cefepime HCl 2,000 MG in Water for inj. (sterile) 20 ML 20 ML IVP SCH (22:48)
[2017-12-22] MEDS: Apixaban 5 MG TABLET PO SCH (22:52)
[2017-12-22] MEDS: Mirtazapine 15 MG TABLET PO SCH (22:53)
[2017-12-22] MEDS: methylPREDNISolone 125 MG/2 ML VIAL IVP SCH (22:58)
[2017-12-22] MEDS: Ipratropium/Albuterol Neb 3 ML IH SCH (23:33)
[2017-12-23] MEDS: Vancomycin 1,500 MG in D5% in Water 250 ML IVPB SCH ×2 (02:24→15:19)
[2017-12-23] MEDS: Ipratropium/Albuterol Neb 3 ML IH SCH ×6 (03:31→23:53)
[2017-12-23 04:59] LABS: Basophils % 0.2 %; Hematocrit 40.3 % (37.5-50.1); Immature Granulocytes % 0.7 % (0-4); Lymphocytes # 0.8 K/mcL (0.6-4.6); Lymphocytes % 4.7 %; Mean Corpuscular HGB Conc 32.3 g/dL (31.6-35.5); Mean Corpuscular Hemoglobin 29.3 pg (28.0-33.3); Monocytes # 0.8 K/mcL (0.0-1.3); Monocytes % 4.6 %; Neutrophils # 15.7 K/mcL (1.6-8.9); Platelet Count 224 K/mcL (140-400); Red Blood Count 4.43 M/mcL (4.19-5.50); Red Cell Distribution Width 13.4 % (11.5-14.5); Segmented Neutrophils % 89.8 %
[2017-12-23] MEDS: Levothyroxine 25 MCG TABLET PO SCH (05:16)
[2017-12-23 05:38] LABS: BUN/Creatinine Ratio 19 (6-26); Blood Urea Nitrogen 16 mg/dL (8-23); Calcium 8.9 mg/dL (8.6-10.3); Carbon Dioxide 29 mEq/L (23-29); Chloride 98 mEq/L (98-107); Glucose 380 mg/dL (70-105); Osmolality,Calculated 293 (280-300); Potassium 4.7 mEq/L (3.5-5.1); Sodium 133 mEq/L (136-145); eGFR For African Americans > 60 (> 60); eGFR For Non-African Americans > 60 (> 60)
[2017-12-23] MEDS: Budesonide/Formoterol 160/4.5 MDI IH SCH ×2 (07:40→20:13)
[2017-12-23] MEDS: Nicotine 14 MG PATCH.TD24 TD SCH (09:39)
[2017-12-23] MEDS: methylPREDNISolone 125 MG/2 ML VIAL IVP SCH ×3 (09:40→23:06)
[2017-12-23] MEDS: Cefepime HCl 2,000 MG in Water for inj. (sterile) 20 ML 20 ML IVP SCH ×3 (09:40→23:11)
[2017-12-23] MEDS: Apixaban 5 MG TABLET PO SCH ×2 (09:41→19:56)
[2017-12-23] MEDS: Furosemide 20 MG TABLET PO SCH (09:41)
[2017-12-23] MEDS: Diltiazem CD (24hr) 180 MG CAPSULE PO SCH (09:41)
[2017-12-23] MEDS: Aspirin 81 MG TAB.CHEW PO SCH (09:41)
[2017-12-23] MEDS: *HR* Amiodarone 200 MG TABLET PO SCH (09:41)
--- NOTE | 2017-12-23 11:25 | Internal Med Progress Note ---
Date of Encounter: 12/23/17 Time of Encounter: 11:23 - Assessment and plan (1) Acute exacerbation of chronic obstructive airways disease Current Visit: Yes Status: Acute Assessment and plan: Continue Duo Nebs, Solumedrol taper as tolerated, HAP treatment with Vancomycin , Cefepime, Levaquin. Continue Symbicort (2) Sepsis Current Visit: No Status: Acute Qualifiers: Sepsis type: sepsis due to unspecified organism Qualified Code(s): A41.9 - Sepsis, unspecified organism (3) HCAP (healthcare-associated pneumonia) Current Visit: Yes Status: Acute Assessment and plan: Patient recently admitted for COPD exacerbation 1 week ago. CXR: "Mild patchy bilateral findings suggesting bronchitis/bronchiolitis and possible developing bronchopneumonia." CTA: "Parenchymal lung disease having the appearance of pneumonia. Atypical organisms including mycobacterial are considered. Mildly enlarged lymph nodes are presumably reactive" Continue Cefepime, Vanc, Levaquin. Leukocytosis improving. (4) Alcohol dependence Current Visit: No Status: Chronic Assessment and plan: Pt currently in Rehab program at [facility]. Last drink over a month ago. Pt did not require any ativan during last admission a week ago. No need for CIWA protocol at this time. continue to monitor. Qualifiers: Substance use status: alcohol-induced mood disorder Qualified Code(s): F10.24 - Alcohol dependence with alcohol-induced mood disorder (5) Atrial flutter Current Visit: No Status: Chronic Assessment and plan: On home amiodarone, BB, Cardizem, ellequis currently RRR. continue home meds. Qualifiers: Atrial flutter type: atypical Qualified Code(s): I48.4 - Atypical atrial flutter (6) CAD (coronary artery disease) Current Visit: No Status: Chronic Assessment and plan: Pt with hx of CAD s/p stent. Pt on BB, ASA, not on statin. No record of allergy Last lipid profile in october of 2015 showed Cholesterol 147, LDL 105, vldl 22 , HDL 20, Triglycerides 111. Will discuss starting statin with patient. Continue home meds. Qualifiers: Coronary Disease-Associated Artery/Lesion type: [place] artery [place] vs. transplanted heart: [place] heart Associated angina: without angina Qualified Code(s): I25.10 - Atherosclerotic heart disease of [place] coronary artery without angina pectoris (7) Hypothyroidism Current Visit: Yes Status: Chronic Qualifiers: Hypothyroidism type: unspecified Qualified Code(s): E03.9 - Hypothyroidism , unspecified (8) Major depress dis, severe Current Visit: No Status: Chronic (9) Tobacco abuse Current Visit: No Status: Chronic (10) DVT prophylaxis Current Visit: No Status: Acute - Subjective Interval history: States not feeling good overall but breathing and energy is better compared to yesterday. Denies chest pain, n/v, diarrhea/constipation. - Constitutional Vitals: Temp Pulse Resp BP Pulse Ox 97.5 F L 84 18 139/93 93 12/23/17 07:57 12/23/17 07:57 12/23/17 07:57 12/23/17 07:57 12/23/17 07:57 General appearance: Present: mild distress, A&O X 3, answers questions appropriately - Head Head exam: Present: atraumatic, normocephalic - Eye Eye exam: Present: PERRL, conjuntiva pink, sclera anicteric Pupils: Present: PERRL - Neck Neck exam general surgery: Present: supple, trachea midline. Absent: lymphadenopathy - Respiratory Respiratory exam: Present: decreased breath sounds, rhonchi, wheezes. Absent: accessory muscle use, rales - Cardiovascular Cardiovascular exam: Present: RRR, +S1, +S2. Absent: diastolic murmur, gallop, rubs, systolic murmur - GI/Abdominal GI/Abdominal exam: Present: normal bowel sounds, soft, no peritoneal signs. Absent: distended, tenderness - Extremities Exam Extremities exam: Present: warm, radial pulses palpable and symmetrical. Absent : calf tenderness, cyanotic, pedal edema - Neurological Exam Neurological exam: Present: CN II-XII intact, oriented X3, no focal deficits. Absent: pronater drift, facial droop, speech deficit - Skin Skin exam: Present: dry, intact Internal Medicine: Result - Labs CBC & Chem 7: 12/23/17 04:20 12/23/17 04:20 Labs: Short CBC 12/23/17 Range/Units 04:20 WBC 17.5 H (4.3-11.1) K/mcL Hgb 13.0 (12.9-16.9) g/dL Hct 40.3 (37.5-50.1) % Plt Count 224 (140-400) K/mcL Neutrophils # 15.7 H (1.6-8.9) K/mcL BMP 12/23/17 04:20 Sodium 133 L Potassium 4.7 Chloride 98 Carbon Dioxide 29 BUN 16 Creatinine 0.85 Glucose 380 H Calcium 8.9 - ABG Interpretation ABG results: ABG ABG pH 7.36 pH Units (7.32-7.45) 12/22/17 11:08 ABG pCO2 43 mmHg (35-45) 12/22/17 11:08 ABG pO2 179 mmHg (85-104) H 12/22/17 11:08 ABG O2 Saturation 100 % (95-98) H 12/22/17 11:08 PT/INR, D-dimer PT 16.4 Seconds (9.4-12.1) H 12/22/17 12:27 D-Dimer 1737 ng/mLFEU (0-500) H 12/22/17 12:27 Consult Discharge Plan - Plan Referrals: René Anne MD [Primary Care Provider] -
[2017-12-23] MEDS ORDERED: Furosemide 20 MG/2 ML VIAL IVP ONE (11:57)
[2017-12-23] MEDS: Levofloxacin 750 MG/150 ML 750 MG/150 ML BAG IVPB SCH (12:19)
--- NOTE | 2017-12-23 14:32 | Electrocardiograph Report ---
[place] [id number] Test Date: 2017-12-23 Pat Name: Donn Gilliland Department: 103 Room: 2S6 Gender: M Case Reviewer: : 1955 Requested By: Cb Cardoso Order Number: [id number] Reading MD: Macarena Johnson Measurements Intervals [place] Rate: 82 P: 48 AK: 203 QRS: -13 QRSD: 114 T: 72 QT: 403 QTc: 442 Interpretive Statements SINUS RHYTHM MODERATE INTRAVENTRICULAR CONDUCTION DELAY NONSPECIFIC ST & T-WAVE ABNORMALITY Electronically Signed On 12-23-2017 14:30:27 EST by Macarena Johnson
[2017-12-23] MEDS ORDERED: Insulin DETEMIR 100 UNIT/ML X5UNITS SQ ONE (18:28)
--- NOTE | 2017-12-23 18:39 | Electrocardiograph Report ---
[place] [id number] Test Date: 2017-12-22 Pat Name: Donn Gilliland Department: 103 Room: 2S6 Gender: M Mixing Machine Operator: TIMMY : 1955 Requested By: Prashanth Álvarez Order Number: [id number] Reading MD: Macarena Johnson Measurements Intervals [place] Rate: 100 P: 42 SC: 172 QRS: -17 QRSD: 106 T: 93 QT: 299 QTc: 356 Interpretive Statements SINUS TACHYCARDIA POSSIBLE LEFT ATRIAL ENLARGEMENT [-0.1mV P WAVE IN V1/V2] NONSPECIFIC ST & T-WAVE ABNORMALITY Electronically Signed On 12-23-2017 18:37:50 EST by Macarena Johnson
[2017-12-23] MEDS: Mirtazapine 15 MG TABLET PO SCH (20:03)
[2017-12-23] MEDS: traZODone 50 MG TABLET PO PRN (23:05)
[2017-12-24] MEDS: Ipratropium/Albuterol Neb 3 ML IH SCH ×5 (03:58→20:26)
[2017-12-24 05:34] LABS: Basophils % 0.2 %; Eosinophils % 0.1 %; Hematocrit 38.9 % (37.5-50.1); Hemoglobin 12.7 g/dL (12.9-16.9); Immature Granulocytes % 1.8 % (0-4); Lymphocytes # 0.8 K/mcL (0.6-4.6); Lymphocytes % 4.3 %; Mean Corpuscular HGB Conc 32.6 g/dL (31.6-35.5); Mean Corpuscular Hemoglobin 29.7 pg (28.0-33.3); Mean Corpuscular Volume 91.1 fL (83.0-100.0); Mean Platelet Volume 10.6 fL (9.4-12.4); Monocytes # 0.8 K/mcL (0.0-1.3); Monocytes % 4.4 %; Neutrophils # 16.7 K/mcL (1.6-8.9); Platelet Count 256 K/mcL (140-400); Red Blood Count 4.27 M/mcL (4.19-5.50); Red Cell Distribution Width 13.7 % (11.5-14.5); Segmented Neutrophils % 89.2 %
[2017-12-24] MEDS: Levothyroxine 25 MCG TABLET PO SCH (05:34)
[2017-12-24 05:40] LABS: Hemoglobin A1C 7.4 %
[2017-12-24 05:59] LABS: BUN/Creatinine Ratio 22 (6-26); Blood Urea Nitrogen 21 mg/dL (8-23); Calcium 8.8 mg/dL (8.6-10.3); Carbon Dioxide 30 mEq/L (23-29); Chloride 97 mEq/L (98-107); Glucose 545 mg/dL (70-105); Osmolality,Calculated 304 (280-300); Potassium 4.5 mEq/L (3.5-5.1); Sodium 133 mEq/L (136-145); eGFR For African Americans > 60 (> 60); eGFR For Non-African Americans > 60 (> 60)
[2017-12-24] MEDS ORDERED: D5% in Water 1,000 ML IVC PRN (06:11)
[2017-12-24] MEDS ORDERED: Dextrose Gel 15 GM/37.5 ML TUBE PO PRN ×2 (06:11)
[2017-12-24] MEDS ORDERED: *HR* Dextrose 50 % in Water (Syg) 50 ML SYRINGE IVP PRN (06:11)
[2017-12-24] MEDS ORDERED: Insulin LISPRO 300 UNITS/3 ML VIAL SQ ONE (06:22)
[2017-12-24] MEDS: Budesonide/Formoterol 160/4.5 MDI IH SCH ×2 (07:32→20:26)
[2017-12-24] MEDS: Insulin LISPRO 300 UNITS/3 ML VIAL SQ SCH ×4 (08:12→20:33)
[2017-12-24] MEDS: Cefepime HCl 2,000 MG in Water for inj. (sterile) 20 ML 20 ML IVP SCH ×2 (08:13→15:35)
[2017-12-24] MEDS: methylPREDNISolone 125 MG/2 ML VIAL IVP SCH (08:13)
[2017-12-24] MEDS: Diltiazem CD (24hr) 180 MG CAPSULE PO SCH (08:13)
[2017-12-24] MEDS: Nicotine 14 MG PATCH.TD24 TD SCH (08:14)
[2017-12-24] MEDS: Furosemide 20 MG TABLET PO SCH (08:14)
[2017-12-24] MEDS: *HR* Amiodarone 200 MG TABLET PO SCH (08:14)
[2017-12-24] MEDS: Apixaban 5 MG TABLET PO SCH ×2 (08:14→20:34)
[2017-12-24] MEDS ORDERED: Furosemide 40 MG/4 ML VIAL IVP ONE (08:45)
[2017-12-24] MEDS ORDERED: Insulin DETEMIR 100 UNIT/ML X5UNITS SQ ONE (08:45)
[2017-12-24] MEDS: Aspirin 81 MG TAB.CHEW PO SCH (09:55)
[2017-12-24] MEDS: Levofloxacin 750 MG/150 ML 750 MG/150 ML BAG IVPB SCH (13:12)
[2017-12-24] MEDS: MethylPREDNISolone 40 MG/ML VIAL IVP SCH (15:35)
[2017-12-24] MEDS: Silvasorb 44.4 ML TUBE TP SCH (18:18)
[2017-12-24] MEDS: Mirtazapine 15 MG TABLET PO SCH (20:35)
--- NOTE | 2017-12-24 22:11 | Internal Med Progress Note ---
Date of Encounter: 12/25/17 Time of Encounter: 10:11 - Assessment and plan (1) Acute exacerbation of chronic obstructive airways disease Current Visit: Yes Status: Acute Assessment and plan: Continue Duo Nebs, Solumedrol taper as tolerated, HAP treatment with Vancomycin , Cefepime, Levaquin. Continue Symbicort (2) Sepsis Current Visit: No Status: Acute Assessment and plan: Patient tachycardic and has leukocytosis but currently on broad spectrum antibiotics. These findings may be from respiratory distress. Will continue vancomycin, cefepime, Levaquin and monitor while tapering steroids. Qualifiers: Sepsis type: sepsis due to unspecified organism Qualified Code(s): A41.9 - Sepsis, unspecified organism (3) HCAP (healthcare-associated pneumonia) Current Visit: Yes Status: Acute Assessment and plan: Patient recently admitted for COPD exacerbation 1 week ago. CXR: "Mild patchy bilateral findings suggesting bronchitis/bronchiolitis and possible developing bronchopneumonia." CTA: "Parenchymal lung disease having the appearance of pneumonia. Atypical organisms including mycobacterial are considered. Mildly enlarged lymph nodes are presumably reactive" Continue Cefepime, Vanc, Levaquin. Leukocytosis improving. (4) Alcohol dependence Current Visit: No Status: Chronic Assessment and plan: Pt currently in Rehab program at [facility]. Last drink over a month ago. Pt did not require any ativan during last admission a week ago. No need for CIWA protocol at this time. continue to monitor. Qualifiers: Substance use status: alcohol-induced mood disorder Qualified Code(s): F10.24 - Alcohol dependence with alcohol-induced mood disorder (5) Atrial flutter Current Visit: No Status: Chronic Assessment and plan: On home amiodarone, BB, Cardizem, ellequis continue home meds. Qualifiers: Atrial flutter type: atypical Qualified Code(s): I48.4 - Atypical atrial flutter (6) CAD (coronary artery disease) Current Visit: No Status: Chronic Assessment and plan: Pt with hx of CAD s/p stent. Pt on BB, ASA, not on statin. No record of allergy Last lipid profile in october of 2015 showed Cholesterol 147, LDL 105, vldl 22 , HDL 20, Triglycerides 111. Will discuss starting statin with patient. Continue home meds. Qualifiers: Coronary Disease-Associated Artery/Lesion type: [place] artery [place] vs. transplanted heart: [place] heart Associated angina: without angina Qualified Code(s): I25.10 - Atherosclerotic heart disease of [place] coronary artery without angina pectoris (7) Hypothyroidism Current Visit: Yes Status: Chronic Qualifiers: Hypothyroidism type: unspecified Qualified Code(s): E03.9 - Hypothyroidism , unspecified (8) Major depress dis, severe Current Visit: No Status: Chronic (9) Tobacco abuse Current Visit: No Status: Chronic Assessment and plan: This is major issue contributing to patient multiple admissions. Discussed cessation with patient. He verbalizes understanding of tobacco use worsening COPD and heart disease. (10) DVT prophylaxis Current Visit: No Status: Acute - Subjective Interval history: States not feeling good overall but breathing and energy is better compared to yesterday. Denies chest pain, n/v, diarrhea/constipation. - Constitutional Vitals: Temp Pulse Resp BP Pulse Ox 98.1 F 116 20 123/87 91 12/24/17 16:18 12/24/17 16:18 12/24/17 20:27 12/24/17 16:18 12/24/17 20:27 General appearance: Present: A&O X 3, no acute distress, obese, answers questions appropriately - Head Head exam: Present: atraumatic, normocephalic - Eye Eye exam: Present: PERRL, conjuntiva pink, sclera anicteric Pupils: Present: PERRL - Neck Neck exam general surgery: Present: supple, trachea midline. Absent: lymphadenopathy - Respiratory Respiratory exam: Present: decreased breath sounds, rales, wheezes. Absent: accessory muscle use, rhonchi - Cardiovascular Cardiovascular exam: Present: RRR, +S1, +S2. Absent: diastolic murmur, gallop, rubs, systolic murmur - GI/Abdominal GI/Abdominal exam: Present: normal bowel sounds, soft, no peritoneal signs. Absent: distended, tenderness - Extremities Exam Extremities exam: Present: warm, radial pulses palpable and symmetrical. Absent : calf tenderness, cyanotic, pedal edema - Neurological Exam Neurological exam: Present: CN II-XII intact, oriented X3, no focal deficits. Absent: pronater drift, facial droop, speech deficit - Skin Skin exam: Present: dry, intact Internal Medicine: Result - Labs CBC & Chem 7: 12/25/17 05:47 12/25/17 05:47 Labs: Short CBC 12/24/17 Range/Units 05:21 WBC 18.7 H (4.3-11.1) K/mcL Hgb 12.7 L (12.9-16.9) g/dL Hct 38.9 (37.5-50.1) % Plt Count 256 (140-400) K/mcL Neutrophils # 16.7 H (1.6-8.9) K/mcL BMP 12/24/17 05:21 Sodium 133 L Potassium 4.5 Chloride 97 L Carbon Dioxide 30 H BUN 21 Creatinine 0.95 Glucose 545 H* Calcium 8.8 - ABG Interpretation ABG results: ABG ABG pH 7.36 pH Units (7.32-7.45) 12/22/17 11:08 ABG pCO2 43 mmHg (35-45) 12/22/17 11:08 ABG pO2 179 mmHg (85-104) H 12/22/17 11:08 ABG O2 Saturation 100 % (95-98) H 12/22/17 11:08 PT/INR, D-dimer PT 16.4 Seconds (9.4-12.1) H 12/22/17 12:27 D-Dimer 1737 ng/mLFEU (0-500) H 12/22/17 12:27 Consult Discharge Plan - Plan Referrals: René Anne MD [Primary Care Provider] -
[2017-12-25] MEDS: MethylPREDNISolone 40 MG/ML VIAL IVP SCH ×4 (00:20→20:23)
[2017-12-25] MEDS: Cefepime HCl 2,000 MG in Water for inj. (sterile) 20 ML 20 ML IVP SCH ×3 (00:20→16:10)
[2017-12-25] MEDS: Ipratropium/Albuterol Neb 3 ML IH SCH ×7 (00:41→23:45)
[2017-12-25] MEDS: Levothyroxine 25 MCG TABLET PO SCH (05:49)
[2017-12-25 06:02] LABS: Basophils # 0.1 K/mcL (0.0-0.2); Basophils % 0.3 %; Hematocrit 40.3 % (37.5-50.1); Hemoglobin 12.9 g/dL (12.9-16.9); Immature Granulocytes % 3.3 % (0-4); Lymphocytes # 1.2 K/mcL (0.6-4.6); Lymphocytes % 6.9 %; Mean Corpuscular Hemoglobin 29.2 pg (28.0-33.3); Mean Corpuscular Volume 91.2 fL (83.0-100.0); Mean Platelet Volume 10.1 fL (9.4-12.4); Monocytes # 0.9 K/mcL (0.0-1.3); Neutrophils # 14.6 K/mcL (1.6-8.9); Platelet Count 266 K/mcL (140-400); Red Blood Count 4.42 M/mcL (4.19-5.50); Red Cell Distribution Width 13.7 % (11.5-14.5); Segmented Neutrophils % 84.5 %
[2017-12-25 06:35] LABS: BUN/Creatinine Ratio 30 (6-26); Blood Urea Nitrogen 26 mg/dL (8-23); Calcium 8.7 mg/dL (8.6-10.3); Carbon Dioxide 30 mEq/L (23-29); Chloride 97 mEq/L (98-107); Glucose 432 mg/dL (70-105); Osmolality,Calculated 301 (280-300); Potassium 4.6 mEq/L (3.5-5.1); Sodium 134 mEq/L (136-145); eGFR For African Americans > 60 (> 60); eGFR For Non-African Americans > 60 (> 60)
[2017-12-25] MEDS: Budesonide/Formoterol 160/4.5 MDI IH SCH ×2 (07:54→20:14)
[2017-12-25] MEDS ORDERED: Insulin DETEMIR 100 UNIT/ML X5UNITS SQ STA (08:08)
[2017-12-25] MEDS ORDERED: *HR* Metoprolol 5 MG/5 ML VIAL IVP PRN (08:10)
[2017-12-25] MEDS ORDERED: *HR* Metoprolol 5 MG/5 ML VIAL IVP STA (08:10)
[2017-12-25] MEDS: Apixaban 5 MG TABLET PO SCH ×2 (09:55→20:24)
[2017-12-25] MEDS: Furosemide 20 MG TABLET PO SCH (09:56)
[2017-12-25] MEDS: Diltiazem CD (24hr) 180 MG CAPSULE PO SCH (09:56)
[2017-12-25] MEDS: *HR* Amiodarone 200 MG TABLET PO SCH (09:56)
[2017-12-25] MEDS: Aspirin 81 MG TAB.CHEW PO SCH (09:56)
[2017-12-25] MEDS: Insulin LISPRO 300 UNITS/3 ML VIAL SQ SCH ×4 (10:00→22:33)
[2017-12-25] MEDS: Nicotine 14 MG PATCH.TD24 TD SCH (11:25)
[2017-12-25] MEDS ORDERED: Furosemide 40 MG/4 ML VIAL IVP ONE (14:25)
[2017-12-25] MEDS: Levofloxacin 750 MG/150 ML 750 MG/150 ML BAG IVPB SCH (14:27)
[2017-12-25] MEDS: Silvasorb 44.4 ML TUBE TP SCH (14:28)
--- NOTE | 2017-12-25 20:09 | Internal Med Progress Note ---
Date of Encounter: 12/25/17 Time of Encounter: 15:00 - Assessment and plan (1) Acute exacerbation of chronic obstructive airways disease Current Visit: Yes Status: Acute Assessment and plan: Continue Duo Nebs, Solumedrol taper as tolerated, HAP treatment with Vancomycin , Cefepime, Levaquin. Continue Symbicort (2) Type 2 diabetes mellitus Current Visit: Yes Status: Acute Assessment and plan: This is a new diagnosis for patient Obtained an A1C that shows 7.4% Discussed this diagnosis with patient. We will continue him on insulin while he is admitted. Outpatient therapy to be determined. Qualifiers: Diabetes mellitus complication status: with unspecified complications Diabetes mellitus assisted insulin use: unspecified termite treater insulin use status Qualified Code(s): E11.8 - Type 2 diabetes mellitus with unspecified complications (3) Sepsis Current Visit: No Status: Acute Assessment and plan: Patient tachycardic and has leukocytosis but currently on broad spectrum antibiotics. These findings may be from respiratory distress. Will continue vancomycin, cefepime, Levaquin and monitor while tapering steroids. Qualifiers: Sepsis type: sepsis due to unspecified organism Qualified Code(s): A41.9 - Sepsis, unspecified organism (4) HCAP (healthcare-associated pneumonia) Current Visit: Yes Status: Acute Assessment and plan: Patient recently admitted for COPD exacerbation 1 week ago. CXR: "Mild patchy bilateral findings suggesting bronchitis/bronchiolitis and possible developing bronchopneumonia." CTA: "Parenchymal lung disease having the appearance of pneumonia. Atypical organisms including mycobacterial are considered. Mildly enlarged lymph nodes are presumably reactive" Continue Cefepime, Vanc, Levaquin. Leukocytosis improving. (5) Alcohol dependence Current Visit: No Status: Chronic Assessment and plan: Pt currently in Rehab program at [facility]. Last drink over a month ago. Pt did not require any ativan during last admission a week ago. No need for CIWA protocol at this time. continue to monitor. Qualifiers: Substance use status: alcohol-induced mood disorder Qualified Code(s): F10.24 - Alcohol dependence with alcohol-induced mood disorder (6) Atrial flutter Current Visit: No Status: Chronic Assessment and plan: On home amiodarone, BB, Cardizem, ellequis continue home meds. Qualifiers: Atrial flutter type: atypical Qualified Code(s): I48.4 - Atypical atrial flutter (7) CAD (coronary artery disease) Current Visit: No Status: Chronic Assessment and plan: Pt with hx of CAD s/p stent. Pt on BB, ASA, not on statin. No record of allergy Last lipid profile in october of 2015 showed Cholesterol 147, LDL 105, vldl 22 , HDL 20, Triglycerides 111. Will discuss starting statin with patient. Continue home meds. Qualifiers: Coronary Disease-Associated Artery/Lesion type: [place] artery [place] vs. transplanted heart: [place] heart Associated angina: without angina Qualified Code(s): I25.10 - Atherosclerotic heart disease of [place] coronary artery without angina pectoris (8) Hypothyroidism Current Visit: Yes Status: Chronic Qualifiers: Hypothyroidism type: unspecified Qualified Code(s): E03.9 - Hypothyroidism , unspecified (9) Major depress dis, severe Current Visit: No Status: Chronic (10) Tobacco abuse Current Visit: No Status: Chronic Assessment and plan: This is major issue contributing to patient multiple admissions. Discussed cessation with patient. He verbalizes understanding of tobacco use worsening COPD and heart disease. (11) DVT prophylaxis Current Visit: No Status: Acute - Subjective Interval history: Patient doing better, does admit still with malaise. Denies chest pain, n/v, fevers/chills. - Constitutional Vitals: Temp Pulse Resp BP Pulse Ox 97.6 F 128 22 125/83 91 12/25/17 17:26 12/25/17 17:26 12/25/17 17:26 12/25/17 17:26 12/25/17 18:51 General appearance: Present: A&O X 3, no acute distress, obese, answers questions appropriately - Respiratory Respiratory exam: Present: decreased breath sounds, rales, wheezes - Cardiovascular Cardiovascular exam: Present: tachycardia - Extremities Exam Extremities exam: Present: warm, radial pulses palpable and symmetrical. Absent : calf tenderness, cyanotic, pedal edema Internal Medicine: Result - Labs CBC & Chem 7: 12/25/17 05:47 12/25/17 05:47 Labs: Short CBC 12/25/17 Range/Units 05:47 WBC 17.3 H (4.3-11.1) K/mcL Hgb 12.9 (12.9-16.9) g/dL Hct 40.3 (37.5-50.1) % Plt Count 266 (140-400) K/mcL Neutrophils # 14.6 H (1.6-8.9) K/mcL BMP 12/25/17 05:47 Sodium 134 L Potassium 4.6 Chloride 97 L Carbon Dioxide 30 H BUN 26 H Creatinine 0.87 Glucose 432 H Calcium 8.7 - ABG Interpretation ABG results: ABG ABG pH 7.36 pH Units (7.32-7.45) 12/22/17 11:08 ABG pCO2 43 mmHg (35-45) 12/22/17 11:08 ABG pO2 179 mmHg (85-104) H 12/22/17 11:08 ABG O2 Saturation 100 % (95-98) H 12/22/17 11:08 PT/INR, D-dimer PT 16.4 Seconds (9.4-12.1) H 12/22/17 12:27 D-Dimer 1737 ng/mLFEU (0-500) H 12/22/17 12:27 Consult Discharge Plan - Plan Referrals: René Anne MD [Primary Care Provider] -
[2017-12-25] MEDS: Mirtazapine 15 MG TABLET PO SCH (20:24)
[2017-12-25] MEDS: Insulin DETEMIR 100 UNIT/ML X5UNITS SQ SCH (22:33)
[2017-12-26] MEDS: Cefepime HCl 2,000 MG in Water for inj. (sterile) 20 ML 20 ML IVP SCH ×3 (00:08→17:25)
[2017-12-26] MEDS: Ipratropium/Albuterol Neb 3 ML IH SCH ×6 (04:04→23:30)
[2017-12-26 04:43] LABS: Basophils # 0.1 K/mcL (0.0-0.2); Basophils % 0.5 %; Hematocrit 41.5 % (37.5-50.1); Hemoglobin 13.5 g/dL (12.9-16.9); Lymphocytes # 1.8 K/mcL (0.6-4.6); Lymphocytes % 9.2 %; Mean Corpuscular HGB Conc 32.5 g/dL (31.6-35.5); Mean Corpuscular Hemoglobin 29.7 pg (28.0-33.3); Mean Corpuscular Volume 91.2 fL (83.0-100.0); Mean Platelet Volume 10.1 fL (9.4-12.4); Monocytes % 5.1 %; Neutrophils # 15.5 K/mcL (1.6-8.9); Platelet Count 268 K/mcL (140-400); Red Blood Count 4.55 M/mcL (4.19-5.50); Red Cell Distribution Width 13.9 % (11.5-14.5); Segmented Neutrophils % 80.2 %
[2017-12-26 05:04] LABS: BUN/Creatinine Ratio 34 (6-26); Blood Urea Nitrogen 31 mg/dL (8-23); Calcium 8.8 mg/dL (8.6-10.3); Carbon Dioxide 32 mEq/L (23-29); Chloride 95 mEq/L (98-107); Glucose 338 mg/dL (70-105); Osmolality,Calculated 298 (280-300); Potassium 4.6 mEq/L (3.5-5.1); Sodium 134 mEq/L (136-145); eGFR For African Americans > 60 (> 60); eGFR For Non-African Americans > 60 (> 60)
[2017-12-26 05:38] LABS: Platelet Estimate Normal (Normal); Reactive Lymphocytes Present (Not Present)
[2017-12-26] MEDS: Levothyroxine 25 MCG TABLET PO SCH (06:26)
[2017-12-26] MEDS: Budesonide/Formoterol 160/4.5 MDI IH SCH ×2 (07:27→20:24)
--- NOTE | 2017-12-26 07:53 | Internal Med Progress Note ---
Date of Encounter: 12/26/17 Time of Encounter: 07:48 - Assessment and plan (1) Acute respiratory failure Current Visit: Yes Status: Acute Assessment and plan: COPD exacerbation, pneumonia, There may be componenet of fluid overload/heart failure with preserved ejection fraction Continue Lasix Keep Solu medrol at current dose today Vanc, cefepime, Levaquin Qualifiers: Respiratory failure complication: hypoxia Qualified Code(s): J96.01 - Acute respiratory failure with hypoxia (2) Acute exacerbation of chronic obstructive airways disease Current Visit: Yes Status: Acute Assessment and plan: Continue Duo Nebs, Solumedrol taper as tolerated, HAP treatment with Vancomycin , Cefepime, Levaquin. Continue Symbicort (3) Type 2 diabetes mellitus Current Visit: Yes Status: Acute Assessment and plan: This is a new diagnosis for patient Obtained an A1C that shows 7.4% Discussed this diagnosis with patient. We will continue him on insulin while he is admitted. Outpatient therapy to be determined. Qualifiers: Diabetes mellitus complication status: with unspecified complications Diabetes mellitus senior care insulin use: unspecified senior care insulin use status Qualified Code(s): E11.8 - Type 2 diabetes mellitus with unspecified complications (4) Sepsis Current Visit: No Status: Acute Assessment and plan: Patient tachycardic and has leukocytosis but currently on broad spectrum antibiotics. These findings may be from respiratory distress. Will continue vancomycin, cefepime, Levaquin and monitor while tapering steroids. Qualifiers: Sepsis type: sepsis due to unspecified organism Qualified Code(s): A41.9 - Sepsis, unspecified organism (5) HCAP (healthcare-associated pneumonia) Current Visit: Yes Status: Acute Assessment and plan: Patient recently admitted for COPD exacerbation 1 week ago. CXR: "Mild patchy bilateral findings suggesting bronchitis/bronchiolitis and possible developing bronchopneumonia." CTA: "Parenchymal lung disease having the appearance of pneumonia. Atypical organisms including mycobacterial are considered. Mildly enlarged lymph nodes are presumably reactive" Continue Cefepime, Vanc, Levaquin. Leukocytosis improving. (6) Alcohol dependence Current Visit: No Status: Chronic Assessment and plan: Pt currently in Rehab program at [facility]. Last drink over a month ago. Pt did not require any ativan during last admission a week ago. No need for CIWA protocol at this time. continue to monitor. Qualifiers: Substance use status: alcohol-induced mood disorder Qualified Code(s): F10.24 - Alcohol dependence with alcohol-induced mood disorder (7) Atrial flutter Current Visit: No Status: Chronic Qualifiers: Atrial flutter type: atypical Qualified Code(s): I48.4 - Atypical atrial flutter (8) CAD (coronary artery disease) Current Visit: No Status: Chronic Qualifiers: Coronary Disease-Associated Artery/Lesion type: [place] artery [place] vs. transplanted heart: [place] heart Associated angina: without angina Qualified Code(s): I25.10 - Atherosclerotic heart disease of [place] coronary artery without angina pectoris (9) Hypothyroidism Current Visit: Yes Status: Chronic Qualifiers: Hypothyroidism type: unspecified Qualified Code(s): E03.9 - Hypothyroidism , unspecified (10) Major depress dis, severe Current Visit: No Status: Chronic (11) Tobacco abuse Current Visit: No Status: Chronic (12) DVT prophylaxis Current Visit: No Status: Acute - Subjective Interval history: Patient Breathing slightly better than yesterday but feels breathing is heavy, he denies chest pain, fevers/chills, nausea/vomiting. - Constitutional Vitals: Temp Pulse Resp BP Pulse Ox 97.6 F 89 20 135/81 92 12/26/17 04:29 12/26/17 04:29 12/26/17 07:29 12/26/17 04:29 12/26/17 07:29 General appearance: Present: A&O X 3, no acute distress, obese, answers questions appropriately Exam: has mildly labored breathing CVS: irregularly irregular rate and rhythm Lungs: Course breath sounds with rales and wheezing abd: nt/nd Ext: trace bipedal edema Internal Medicine: Result - Labs CBC & Chem 7: 12/26/17 03:37 12/26/17 03:37 Labs: Short CBC 12/26/17 Range/Units 03:37 WBC 19.3 H (4.3-11.1) K/mcL Hgb 13.5 (12.9-16.9) g/dL Hct 41.5 (37.5-50.1) % Plt Count 268 (140-400) K/mcL Neutrophils # 15.5 H (1.6-8.9) K/mcL BMP 12/26/17 03:37 Sodium 134 L Potassium 4.6 Chloride 95 L Carbon Dioxide 32 H BUN 31 H Creatinine 0.90 Glucose 338 H Calcium 8.8 - ABG Interpretation ABG results: ABG ABG pH 7.36 pH Units (7.32-7.45) 12/22/17 11:08 ABG pCO2 43 mmHg (35-45) 12/22/17 11:08 ABG pO2 179 mmHg (85-104) H 12/22/17 11:08 ABG O2 Saturation 100 % (95-98) H 12/22/17 11:08 PT/INR, D-dimer PT 16.4 Seconds (9.4-12.1) H 12/22/17 12:27 D-Dimer 1737 ng/mLFEU (0-500) H 12/22/17 12:27 Consult Discharge Plan - Plan Referrals: René Anne MD [Primary Care Provider] -
[2017-12-26] MEDS: Aspirin 81 MG TAB.CHEW PO SCH (07:59)
[2017-12-26] MEDS: Diltiazem CD (24hr) 180 MG CAPSULE PO SCH (07:59)
[2017-12-26] MEDS: Furosemide 20 MG TABLET PO SCH (07:59)
[2017-12-26] MEDS: Nicotine 14 MG PATCH.TD24 TD SCH (07:59)
[2017-12-26] MEDS: Apixaban 5 MG TABLET PO SCH ×2 (08:00→21:30)
[2017-12-26] MEDS: *HR* Amiodarone 200 MG TABLET PO SCH (08:00)
[2017-12-26] MEDS: Insulin LISPRO 300 UNITS/3 ML VIAL SQ SCH ×7 (08:01→21:38)
[2017-12-26] MEDS: MethylPREDNISolone 40 MG/ML VIAL IVP SCH ×2 (08:01→21:29)
[2017-12-26] MEDS: Furosemide 40 MG/4 ML VIAL IVP SCH ×2 (08:37→21:29)
[2017-12-26] MEDS: Levofloxacin 750 MG/150 ML 750 MG/150 ML BAG IVPB SCH (14:29)
[2017-12-26] MEDS: Silvasorb 44.4 ML TUBE TP SCH (17:30)
[2017-12-26] MEDS: Mirtazapine 15 MG TABLET PO SCH (21:29)
[2017-12-26] MEDS: Insulin DETEMIR 100 UNIT/ML X5UNITS SQ SCH (21:30)
[2017-12-27] MEDS: Cefepime HCl 2,000 MG in Water for inj. (sterile) 20 ML 20 ML IVP SCH ×3 (00:52→16:17)
[2017-12-27] MEDS: Ipratropium/Albuterol Neb 3 ML IH SCH ×5 (04:18→20:18)
[2017-12-27 05:57] LABS: Basophils # 0.1 K/mcL (0.0-0.2); Basophils % 0.7 %; Hematocrit 42.8 % (37.5-50.1); Hemoglobin 13.9 g/dL (12.9-16.9); Immature Granulocytes % 4.6 % (0-4); Lymphocytes # 1.6 K/mcL (0.6-4.6); Lymphocytes % 8.1 %; Mean Corpuscular HGB Conc 32.5 g/dL (31.6-35.5); Mean Corpuscular Hemoglobin 29.2 pg (28.0-33.3); Mean Corpuscular Volume 89.9 fL (83.0-100.0); Mean Platelet Volume 9.9 fL (9.4-12.4); Monocytes # 0.8 K/mcL (0.0-1.3); Monocytes % 4.3 %; Neutrophils # 15.7 K/mcL (1.6-8.9); Platelet Count 272 K/mcL (140-400); Red Blood Count 4.76 M/mcL (4.19-5.50); Red Cell Distribution Width 13.8 % (11.5-14.5); Segmented Neutrophils % 82.3 %
[2017-12-27] MEDS: Levothyroxine 25 MCG TABLET PO SCH (06:08)
[2017-12-27 06:22] LABS: BUN/Creatinine Ratio 36 (6-26); Blood Urea Nitrogen 38 mg/dL (8-23); Calcium 8.7 mg/dL (8.6-10.3); Carbon Dioxide 33 mEq/L (23-29); Chloride 95 mEq/L (98-107); Glucose 390 mg/dL (70-105); Osmolality,Calculated 303 (280-300); Potassium 5.1 mEq/L (3.5-5.1); Sodium 134 mEq/L (136-145); eGFR For African Americans > 60 (> 60); eGFR For Non-African Americans > 60 (> 60)
[2017-12-27] MEDS: Insulin LISPRO 300 UNITS/3 ML VIAL SQ SCH ×8 (07:46→20:33)
[2017-12-27] MEDS: Aspirin 81 MG TAB.CHEW PO SCH (07:48)
[2017-12-27] MEDS: MethylPREDNISolone 40 MG/ML VIAL IVP SCH ×2 (07:48→20:30)
[2017-12-27] MEDS: Diltiazem CD (24hr) 180 MG CAPSULE PO SCH (07:49)
[2017-12-27] MEDS: *HR* Amiodarone 200 MG TABLET PO SCH (07:49)
[2017-12-27] MEDS: Nicotine 14 MG PATCH.TD24 TD SCH (07:50)
[2017-12-27] MEDS: Furosemide 20 MG TABLET PO SCH (07:55)
[2017-12-27] MEDS: Apixaban 5 MG TABLET PO SCH ×2 (07:55→20:30)
[2017-12-27] MEDS: Furosemide 40 MG/4 ML VIAL IVP SCH ×2 (07:56→20:48)
[2017-12-27] MEDS: Budesonide/Formoterol 160/4.5 MDI IH SCH ×2 (08:09→20:18)
[2017-12-27] MEDS: Silvasorb 44.4 ML TUBE TP SCH (09:31)
[2017-12-27] MEDS: Levofloxacin 750 MG/150 ML 750 MG/150 ML BAG IVPB SCH (11:41)
--- NOTE | 2017-12-27 13:40 | Internal Med Progress Note ---
Date of Encounter: 12/27/17 Time of Encounter: 13:37 - Assessment and plan (1) Acute respiratory failure Current Visit: Yes Status: Acute Assessment and plan: COPD exacerbation, pneumonia, There is componenet of fluid overload/heart failure with preserved ejection fraction Continue Lasix Keep Solu medrol at current dose Vanc, cefepime, Levaquin repeat CXR today to monitor improvement. Qualifiers: Respiratory failure complication: hypoxia Qualified Code(s): J96.01 - Acute respiratory failure with hypoxia (2) Acute exacerbation of chronic obstructive airways disease Current Visit: Yes Status: Acute Assessment and plan: Continue Duo Nebs, Solumedrol taper as tolerated, HAP treatment with Vancomycin , Cefepime, Levaquin. Continue Symbicort (3) Type 2 diabetes mellitus Current Visit: Yes Status: Acute Assessment and plan: This is a new diagnosis for patient Obtained an A1C that shows 7.4% Discussed this diagnosis with patient. We will continue him on insulin while he is admitted. Outpatient therapy to be determined. Increase Levemir to 25 units HS Increase meal time insulin to 8 units wm Qualifiers: Diabetes mellitus complication status: with unspecified complications Diabetes mellitus intermission coordinator insulin use: unspecified shelter insulin use status Qualified Code(s): E11.8 - Type 2 diabetes mellitus with unspecified complications (4) Sepsis Current Visit: No Status: Acute Assessment and plan: Patient tachycardic and has leukocytosis but currently on broad spectrum antibiotics. These findings may be from respiratory distress. Clinically improving but still tachycardic and also with leukocytosis stayed at 19k from 12/26-12/27. Will continue vancomycin, cefepime, Levaquin and monitor Recheck procalcitonin to guide antibiotic therapy. Tachycardia could be from history of acute illness, will increase metoprolol to 50mg BID and monitor Qualifiers: Sepsis type: sepsis due to unspecified organism Qualified Code(s): A41.9 - Sepsis, unspecified organism (5) HCAP (healthcare-associated pneumonia) Current Visit: Yes Status: Acute Assessment and plan: Patient recently admitted for COPD exacerbation 1 week ago. CXR: "Mild patchy bilateral findings suggesting bronchitis/bronchiolitis and possible developing bronchopneumonia." CTA: "Parenchymal lung disease having the appearance of pneumonia. Atypical organisms including mycobacterial are considered. Mildly enlarged lymph nodes are presumably reactive" Continue Cefepime, Vanc, Levaquin. Leukocytosis 2/16- staying in 19k range Repeat chest x-ray today to monitor for improvement. (6) Alcohol dependence Current Visit: No Status: Chronic Assessment and plan: Pt currently in Rehab program at [facility]. Last drink over a month ago. Pt did not require any ativan during last admission a week ago. No need for CIWA protocol at this time. continue to monitor. Qualifiers: Substance use status: alcohol-induced mood disorder Qualified Code(s): F10.24 - Alcohol dependence with alcohol-induced mood disorder (7) Atrial flutter Current Visit: No Status: Chronic Assessment and plan: On home amiodarone, BB, Cardizem, ellequis Running in 100s. Increase metoprolol to 50 mg BID Qualifiers: Atrial flutter type: atypical Qualified Code(s): I48.4 - Atypical atrial flutter (8) CAD (coronary artery disease) Current Visit: No Status: Chronic Assessment and plan: Pt with hx of CAD s/p stent. Pt on BB, ASA, not on statin. No record of allergy Last lipid profile in october of 2015 showed Cholesterol 147, LDL 105, vldl 22 , HDL 20, Triglycerides 111. Will discuss starting statin with patient. Continue home meds. Qualifiers: Coronary Disease-Associated Artery/Lesion type: [place] artery [place] vs. transplanted heart: [place] heart Associated angina: without angina Qualified Code(s): I25.10 - Atherosclerotic heart disease of [place] coronary artery without angina pectoris (9) Hypothyroidism Current Visit: Yes Status: Chronic Qualifiers: Hypothyroidism type: unspecified Qualified Code(s): E03.9 - Hypothyroidism , unspecified (10) Major depress dis, severe Current Visit: No Status: Chronic (11) Tobacco abuse Current Visit: No Status: Chronic Assessment and plan: This is major issue contributing to patient multiple admissions. Discussed cessation with patient. He verbalizes understanding of tobacco use worsening COPD and heart disease. Continue nicotine patch (12) DVT prophylaxis Current Visit: No Status: Acute Assessment and plan: Currently on Eliquis - Subjective Interval history: Patient states every day he is feeling a little better. - Constitutional Vitals: Temp Pulse Resp BP Pulse Ox 98.0 F 83 18 103/58 91 12/27/17 11:00 12/27/17 11:00 12/27/17 11:55 12/27/17 11:00 12/27/17 11:55 General appearance: Present: A&O X 3, no acute distress, obese, answers questions appropriately - Head Head exam: Present: atraumatic, normocephalic - Eye Eye exam: Present: PERRL, conjuntiva pink, sclera anicteric Pupils: Present: PERRL - Neck Neck exam general surgery: Present: supple, trachea midline. Absent: lymphadenopathy - Respiratory Respiratory exam: Present: CTAB, rales, wheezes. Absent: accessory muscle use - Cardiovascular Cardiovascular exam: Present: RRR, +S1, +S2. Absent: diastolic murmur, gallop, rubs, systolic murmur - GI/Abdominal GI/Abdominal exam: Present: normal bowel sounds, soft, no peritoneal signs. Absent: distended, tenderness - Extremities Exam Extremities exam: Present: warm, radial pulses palpable and symmetrical. Absent : calf tenderness, cyanotic, pedal edema - Neurological Exam Neurological exam: Present: CN II-XII intact, oriented X3, no focal deficits. Absent: pronater drift, facial droop, speech deficit - Skin Skin exam: Present: dry, intact Internal Medicine: Result - Labs CBC & Chem 7: 12/27/17 05:10 12/27/17 05:10 Labs: Short CBC 12/27/17 Range/Units 05:10 WBC 19.1 H (4.3-11.1) K/mcL Hgb 13.9 (12.9-16.9) g/dL Hct 42.8 (37.5-50.1) % Plt Count 272 (140-400) K/mcL Neutrophils # 15.7 H (1.6-8.9) K/mcL BMP 12/27/17 05:10 Sodium 134 L Potassium 5.1 Chloride 95 L Carbon Dioxide 33 H BUN 38 H Creatinine 1.07 Glucose 390 H Calcium 8.7 - ABG Interpretation ABG results: ABG ABG pH 7.36 pH Units (7.32-7.45) 12/22/17 11:08 ABG pCO2 43 mmHg (35-45) 12/22/17 11:08 ABG pO2 179 mmHg (85-104) H 12/22/17 11:08 ABG O2 Saturation 100 % (95-98) H 12/22/17 11:08 PT/INR, D-dimer PT 16.4 Seconds (9.4-12.1) H 12/22/17 12:27 D-Dimer 1737 ng/mLFEU (0-500) H 12/22/17 12:27 Consult Discharge Plan - Plan Referrals: René Anne MD [Primary Care Provider] - 01/01/18 10:15 am
[2017-12-27] MEDS: Mirtazapine 15 MG TABLET PO SCH (20:31)
[2017-12-27] MEDS: Insulin DETEMIR 100 UNIT/ML X5UNITS SQ SCH (20:49)
[2017-12-28] MEDS: Cefepime HCl 2,000 MG in Water for inj. (sterile) 20 ML 20 ML IVP SCH ×4 (00:35→23:50)
[2017-12-28] MEDS: Ipratropium/Albuterol Neb 3 ML IH SCH ×6 (00:37→20:20)
[2017-12-28 05:08] LABS: Basophils # 0.1 K/mcL (0.0-0.2); Basophils % 0.7 %; Hematocrit 44.5 % (37.5-50.1); Hemoglobin 14.4 g/dL (12.9-16.9); Immature Granulocytes % 4.4 % (0-4); Lymphocytes # 1.3 K/mcL (0.6-4.6); Mean Corpuscular HGB Conc 32.4 g/dL (31.6-35.5); Mean Corpuscular Hemoglobin 29.3 pg (28.0-33.3); Mean Corpuscular Volume 90.4 fL (83.0-100.0); Mean Platelet Volume 9.9 fL (9.4-12.4); Monocytes # 0.6 K/mcL (0.0-1.3); Monocytes % 4.1 %; Neutrophils # 12.1 K/mcL (1.6-8.9); Platelet Count 269 K/mcL (140-400); Red Blood Count 4.92 M/mcL (4.19-5.50); Red Cell Distribution Width 13.8 % (11.5-14.5); Segmented Neutrophils % 81.8 %
[2017-12-28 05:28] LABS: BUN/Creatinine Ratio 32 (6-26); Blood Urea Nitrogen 43 mg/dL (8-23); Calcium 8.7 mg/dL (8.6-10.3); Carbon Dioxide 34 mEq/L (23-29); Chloride 92 mEq/L (98-107); Glucose 424 mg/dL (70-105); Osmolality,Calculated 305 (280-300); Potassium 4.9 mEq/L (3.5-5.1); Sodium 133 mEq/L (136-145); eGFR For African Americans > 60 (> 60); eGFR For Non-African Americans 54 (> 60)
[2017-12-28] MEDS: Levothyroxine 25 MCG TABLET PO SCH (07:50)
[2017-12-28] MEDS: Insulin LISPRO 300 UNITS/3 ML VIAL SQ SCH ×7 (07:51→21:32)
[2017-12-28] MEDS: MethylPREDNISolone 40 MG/ML VIAL IVP SCH ×2 (07:52→20:13)
[2017-12-28] MEDS: Aspirin 81 MG TAB.CHEW PO SCH (07:53)
[2017-12-28] MEDS: Diltiazem CD (24hr) 180 MG CAPSULE PO SCH (07:53)
[2017-12-28] MEDS: *HR* Amiodarone 200 MG TABLET PO SCH (07:54)
[2017-12-28] MEDS: Nicotine 14 MG PATCH.TD24 TD SCH (07:54)
[2017-12-28] MEDS: Apixaban 5 MG TABLET PO SCH ×2 (07:54→20:13)
[2017-12-28] MEDS: Silvasorb 44.4 ML TUBE TP SCH (07:55)
[2017-12-28] MEDS: Budesonide/Formoterol 160/4.5 MDI IH SCH ×2 (08:17→20:20)
[2017-12-28] MEDS: Levofloxacin 750 MG/150 ML 750 MG/150 ML BAG IVPB SCH (12:28)
--- NOTE | 2017-12-28 17:03 | Internal Med Progress Note ---
Date of Encounter: 12/28/17 Time of Encounter: 17:02 - Assessment and plan (1) Acute respiratory failure Current Visit: Yes Status: Acute Assessment and plan: COPD exacerbation, pneumonia, - CTA 12/22 on admission showed with pneumonia - follow-up CXR 12/27 showed some improvement in pneumonia and bronchiolitis. - Change Solu Medrol to PO Prednisone tomorrow - Hold Lasix today, patient fluid overload improved and creatinine increased - Continue cefepime and Levaquin, discontinue vancomycin Qualifiers: Respiratory failure complication: hypoxia Qualified Code(s): J96.01 - Acute respiratory failure with hypoxia (2) Sepsis Current Visit: No Status: Acute Assessment and plan: Patient 2 SIRS criteria, tachycardia/leukocytosis. These findings may reactive from respiratory distress versus sepsis. - WBC improving to 14k today - DC vancomycin - Continue cefepime, levaquin - Recheck procalcitonin to guide antibiotic therapy. Qualifiers: Sepsis type: sepsis due to unspecified organism Qualified Code(s): A41.9 - Sepsis, unspecified organism (3) Acute kidney failure Current Visit: Yes Status: Acute Assessment and plan: Acute Kidney Injury: - Hold Lasix today - Discontinue Vancomycin - Recheck in AM. Qualifiers: Acute renal failure type: unspecified Qualified Code(s): N17.9 - Acute kidney failure, unspecified (4) Acute exacerbation of chronic obstructive airways disease Current Visit: Yes Status: Acute Assessment and plan: Continue Duo Nebs, Solumedrol taper as tolerated, HAP treatment with Vancomycin , Cefepime, Levaquin. Continue Symbicort (5) HCAP (healthcare-associated pneumonia) Current Visit: Yes Status: Acute Assessment and plan: Patient is readmiited after a COPD exacerbation 1 week ago. Continue Cefepime, Vanc, Levaquin. CTA showed findings consistent with pneumonia Follow-up chest x-ray shows some improvement Continue cefepim, Levaquin. D/C Vanc (6) Type 2 diabetes mellitus Current Visit: Yes Status: Acute Assessment and plan: This is a new diagnosis for patient Obtained an A1C that shows 7.4% Patient sneaking meals causing hyperglycemia. Keep Levemir 25 units HS, Humalog 8 units WM. Will discuss with Social Work on setting up for this and diabetic education. - Will need insulin prescription on discharge. - Patient may not be able to properly treat diabetes on his own. He has poor living situation. Needs to be safely able to discard needles and syringes and careful administration of medication. Qualifiers: Diabetes mellitus complication status: with unspecified complications Diabetes mellitus long term care social worker insulin use: unspecified long term care social worker insulin use status Qualified Code(s): E11.8 - Type 2 diabetes mellitus with unspecified complications (7) Alcohol dependence Current Visit: No Status: Chronic Assessment and plan: Pt currently in Rehab program at [facility]. Last drink over a month ago. Pt did not require any ativan during last admission a week ago. No need for CIWA protocol at this time. continue to monitor. Qualifiers: Substance use status: alcohol-induced mood disorder Qualified Code(s): F10.24 - Alcohol dependence with alcohol-induced mood disorder (8) Atrial flutter Current Visit: No Status: Chronic Assessment and plan: On home amiodarone, BB, Cardizem, ellequis Increased metoprolol to 50 mg BID and HR now improved Qualifiers: Atrial flutter type: atypical Qualified Code(s): I48.4 - Atypical atrial flutter (9) CAD (coronary artery disease) Current Visit: No Status: Chronic Assessment and plan: Pt with hx of CAD s/p stent. Pt on BB, ASA, not on statin. No record of allergy Last lipid profile in october of 2015 showed Cholesterol 147, LDL 105, vldl 22 , HDL 20, Triglycerides 111. Will discuss starting statin with patient. Continue home meds. Qualifiers: Coronary Disease-Associated Artery/Lesion type: [place] artery [place] vs. transplanted heart: [place] heart Associated angina: without angina Qualified Code(s): I25.10 - Atherosclerotic heart disease of [place] coronary artery without angina pectoris (10) Hypothyroidism Current Visit: Yes Status: Chronic Qualifiers: Hypothyroidism type: unspecified Qualified Code(s): E03.9 - Hypothyroidism , unspecified (11) Major depress dis, severe Current Visit: No Status: Chronic (12) Tobacco abuse Current Visit: No Status: Chronic Assessment and plan: This is major issue contributing to patient multiple admissions. Discussed cessation with patient. He verbalizes understanding of tobacco use worsening COPD and heart disease. Continue nicotine patch (13) DVT prophylaxis Current Visit: No Status: Acute Assessment and plan: Currently on Eliquis - Subjective Interval history: Feels significantly better today. Glucose high in past few days, patient is eating sandwiches in between meals because he gets hungry and also goes to vending machines down the [place]. - Constitutional Vitals: Temp Pulse Resp BP Pulse Ox 97.9 F 77 18 125/78 95 12/28/17 14:30 12/28/17 14:30 12/28/17 15:26 12/28/17 14:30 12/28/17 15:26 General appearance: Present: A&O X 3, no acute distress, obese, answers questions appropriately - Head Head exam: Present: atraumatic, normocephalic - Eye Eye exam: Present: PERRL, conjuntiva pink, sclera anicteric Pupils: Present: PERRL - Neck Neck exam general surgery: Present: supple, trachea midline. Absent: lymphadenopathy - Respiratory Respiratory exam: Present: CTAB, wheezes. Absent: accessory muscle use, rales, rhonchi - Cardiovascular Cardiovascular exam: Present: RRR, +S1, +S2. Absent: diastolic murmur, gallop, rubs, systolic murmur - GI/Abdominal GI/Abdominal exam: Present: normal bowel sounds, soft, no peritoneal signs. Absent: distended, tenderness - Extremities Exam Extremities exam: Present: warm, radial pulses palpable and symmetrical. Absent : calf tenderness, cyanotic, pedal edema - Neurological Exam Neurological exam: Present: CN II-XII intact, oriented X3, no focal deficits. Absent: pronater drift, facial droop, speech deficit - Skin Skin exam: Present: dry, intact Internal Medicine: Result - Labs CBC & Chem 7: 12/28/17 04:48 12/28/17 04:48 Labs: Short CBC 12/28/17 Range/Units 04:48 WBC 14.7 H (4.3-11.1) K/mcL Hgb 14.4 (12.9-16.9) g/dL Hct 44.5 (37.5-50.1) % Plt Count 269 (140-400) K/mcL Neutrophils # 12.1 H (1.6-8.9) K/mcL BMP 12/28/17 04:48 Sodium 133 L Potassium 4.9 Chloride 92 L Carbon Dioxide 34 H BUN 43 H Creatinine 1.33 H Glucose 424 H Calcium 8.7 - ABG Interpretation ABG results: ABG ABG pH 7.36 pH Units (7.32-7.45) 12/22/17 11:08 ABG pCO2 43 mmHg (35-45) 12/22/17 11:08 ABG pO2 179 mmHg (85-104) H 12/22/17 11:08 ABG O2 Saturation 100 % (95-98) H 12/22/17 11:08 PT/INR, D-dimer PT 16.4 Seconds (9.4-12.1) H 12/22/17 12:27 D-Dimer 1737 ng/mLFEU (0-500) H 12/22/17 12:27 Consult Discharge Plan - Plan Referrals: René Anne MD [Primary Care Provider] - 01/01/18 10:15 am
[2017-12-28] MEDS: Mirtazapine 15 MG TABLET PO SCH (20:12)
[2017-12-28] MEDS: Insulin DETEMIR 100 UNIT/ML X5UNITS SQ SCH (21:30)
[2017-12-28] MEDS: traZODone 50 MG TABLET PO PRN (23:53)
[2017-12-29] MEDS: Ipratropium/Albuterol Neb 3 ML IH SCH ×6 (01:04→20:40)
[2017-12-29 05:46] LABS: Basophils # 0.1 K/mcL (0.0-0.2); Basophils % 0.3 %; Hematocrit 42.8 % (37.5-50.1); Hemoglobin 13.8 g/dL (12.9-16.9); Lymphocytes # 1.3 K/mcL (0.6-4.6); Lymphocytes % 7.1 %; Mean Corpuscular HGB Conc 32.2 g/dL (31.6-35.5); Mean Corpuscular Hemoglobin 29.4 pg (28.0-33.3); Mean Corpuscular Volume 91.1 fL (83.0-100.0); Mean Platelet Volume 9.9 fL (9.4-12.4); Monocytes # 0.7 K/mcL (0.0-1.3); Monocytes % 3.7 %; Neutrophils # 15.3 K/mcL (1.6-8.9); Platelet Count 235 K/mcL (140-400); Red Cell Distribution Width 13.9 % (11.5-14.5); Segmented Neutrophils % 84.9 %
[2017-12-29] MEDS: Levothyroxine 25 MCG TABLET PO SCH (05:50)
[2017-12-29 06:09] LABS: BUN/Creatinine Ratio 38 (6-26); Blood Urea Nitrogen 44 mg/dL (8-23); Calcium 8.7 mg/dL (8.6-10.3); Carbon Dioxide 31 mEq/L (23-29); Chloride 98 mEq/L (98-107); Glucose 362 mg/dL (70-105); Osmolality,Calculated 304 (280-300); Potassium 5.2 mEq/L (3.5-5.1); Sodium 134 mEq/L (136-145); eGFR For African Americans > 60 (> 60); eGFR For Non-African Americans > 60 (> 60)
[2017-12-29] MEDS ORDERED: Aminoglycoside Consult 1 EACH MC ONE (07:31)
[2017-12-29] MEDS: Budesonide/Formoterol 160/4.5 MDI IH SCH ×2 (07:36→20:40)
[2017-12-29] MEDS: Insulin LISPRO 300 UNITS/3 ML VIAL SQ SCH ×7 (08:34→20:35)
[2017-12-29] MEDS: Diltiazem CD (24hr) 180 MG CAPSULE PO SCH (08:35)
[2017-12-29] MEDS: predniSONE 20 MG TABLET PO SCH (08:35)
[2017-12-29] MEDS: Nicotine 14 MG PATCH.TD24 TD SCH (08:35)
[2017-12-29] MEDS: Aspirin 81 MG TAB.CHEW PO SCH (08:36)
[2017-12-29] MEDS: *HR* Amiodarone 200 MG TABLET PO SCH (08:36)
[2017-12-29] MEDS: Cefepime HCl 2,000 MG in Water for inj. (sterile) 20 ML 20 ML IVP SCH ×2 (08:36→17:26)
[2017-12-29] MEDS: Apixaban 5 MG TABLET PO SCH ×2 (08:36→20:33)
[2017-12-29] MEDS: Levofloxacin 750 MG/150 ML 750 MG/150 ML BAG IVPB SCH (15:16)
[2017-12-29] MEDS: Silvasorb 44.4 ML TUBE TP SCH (15:34)
[2017-12-29] MEDS: Mirtazapine 15 MG TABLET PO SCH (20:33)
[2017-12-29] MEDS ORDERED: Insulin DETEMIR 100 UNIT/ML X5UNITS SQ SCH (21:00)
[2017-12-30] MEDS: Cefepime HCl 2,000 MG in Water for inj. (sterile) 20 ML 20 ML IVP SCH ×2 (00:12→08:16)
--- NOTE | 2017-12-30 01:13 | Internal Med Progress Note ---
Date of Encounter: 12/29/17 Time of Encounter: 14:11 - Assessment and plan (1) Acute respiratory failure Current Visit: Yes Status: Acute Assessment and plan: COPD exacerbation, pneumonia, fluid overload - CTA 12/22 on admission showed with pneumonia - follow-up CXR 12/27 showed some improvement in pneumonia and bronchiolitis. - Changed to PO Prednisone - Was diuresed with IV Lasix, back on PO Disposition: - Await acceptance into [facility] - Resources for insulin prescription - Diabetes education prior to discharge Qualifiers: Respiratory failure complication: hypoxia Qualified Code(s): J96.01 - Acute respiratory failure with hypoxia (2) Sepsis Current Visit: No Status: Resolved Assessment and plan: Patient 2 SIRS criteria, tachycardia/leukocytosis. These findings may reactive from respiratory distress versus sepsis. - WBC improving but increased, possibly reactive - Continue cefepime, levaquin - Recheck procalcitonin to guide antibiotic therapy. Resolved Qualifiers: Sepsis type: sepsis due to unspecified organism Qualified Code(s): A41.9 - Sepsis, unspecified organism (3) Type 2 diabetes mellitus Current Visit: Yes Status: Acute Assessment and plan: This is a new diagnosis for patient Will discuss with Social Work on setting up for this and diabetic education. - Will need insulin prescription on discharge. - Patient may not be able to properly treat diabetes on his own. He has poor living situation. Needs to be safely able to discard needles and syringes and careful administration of medication. Qualifiers: Diabetes mellitus complication status: with unspecified complications Diabetes mellitus oil heaterman insulin use: unspecified oil heaterman insulin use status Qualified Code(s): E11.8 - Type 2 diabetes mellitus with unspecified complications (4) Acute kidney failure Current Visit: Yes Status: Acute Assessment and plan: Acute Kidney Injury: Resolved Qualifiers: Acute renal failure type: unspecified Qualified Code(s): N17.9 - Acute kidney failure, unspecified (5) Acute exacerbation of chronic obstructive airways disease Current Visit: Yes Status: Acute Assessment and plan: Continue Duo Nebs, Solumedrol taper as tolerated, HAP treatment with Vancomycin , Cefepime, Levaquin. Continue Symbicort (6) HCAP (healthcare-associated pneumonia) Current Visit: Yes Status: Acute Assessment and plan: Patient is readmiited after a COPD exacerbation 1 week ago. Continue Cefepime, Vanc, Levaquin. CTA showed findings consistent with pneumonia Follow-up chest x-ray shows some improvement Continue cefepim, Levaquin. D/C Vanc (7) Alcohol dependence Current Visit: No Status: Chronic Assessment and plan: Pt currently in Rehab program at [facility]. Last drink over a month ago. Pt did not require any ativan during last admission a week ago. No need for CIWA protocol at this time. continue to monitor. Qualifiers: Substance use status: alcohol-induced mood disorder Qualified Code(s): F10.24 - Alcohol dependence with alcohol-induced mood disorder (8) Atrial flutter Current Visit: No Status: Chronic Assessment and plan: On home amiodarone, BB, Cardizem, ellequis Increased metoprolol to 50 mg BID and HR now improved Qualifiers: Atrial flutter type: atypical Qualified Code(s): I48.4 - Atypical atrial flutter (9) CAD (coronary artery disease) Current Visit: No Status: Chronic Assessment and plan: Pt with hx of CAD s/p stent. Pt on BB, ASA, not on statin. No record of allergy Last lipid profile in october of 2015 showed Cholesterol 147, LDL 105, vldl 22 , HDL 20, Triglycerides 111. Will discuss starting statin with patient. Continue home meds. Qualifiers: Coronary Disease-Associated Artery/Lesion type: [place] artery [place] vs. transplanted heart: [place] heart Associated angina: without angina Qualified Code(s): I25.10 - Atherosclerotic heart disease of [place] coronary artery without angina pectoris (10) Hypothyroidism Current Visit: Yes Status: Chronic Qualifiers: Hypothyroidism type: unspecified Qualified Code(s): E03.9 - Hypothyroidism , unspecified (11) Major depress dis, severe Current Visit: No Status: Chronic (12) Tobacco abuse Current Visit: No Status: Chronic Assessment and plan: This is major issue contributing to patient multiple admissions. Discussed cessation with patient. He verbalizes understanding of tobacco use worsening COPD and heart disease. Continue nicotine patch (13) DVT prophylaxis Current Visit: No Status: Acute Assessment and plan: Currently on Eliquis - Subjective Interval history: No acute events, no complaints - Constitutional Vitals: Temp Pulse Resp BP Pulse Ox 97.8 F 67 15 110/68 91 12/29/17 23:48 12/29/17 23:48 12/29/17 23:48 12/29/17 23:48 12/29/17 23:48 General appearance: Present: A&O X 3, no acute distress, obese, answers questions appropriately - Head Head exam: Present: atraumatic, normocephalic - Eye Eye exam: Present: PERRL, conjuntiva pink, sclera anicteric Pupils: Present: PERRL - Neck Neck exam general surgery: Present: supple, trachea midline. Absent: lymphadenopathy - Respiratory Respiratory exam: Present: wheezes. Absent: accessory muscle use, rales, rhonchi - Cardiovascular Cardiovascular exam: Present: RRR, +S1, +S2. Absent: diastolic murmur, gallop, rubs, systolic murmur - GI/Abdominal GI/Abdominal exam: Present: normal bowel sounds, soft, no peritoneal signs. Absent: distended, tenderness - Extremities Exam Extremities exam: Present: warm, radial pulses palpable and symmetrical. Absent : calf tenderness, cyanotic, pedal edema - Neurological Exam Neurological exam: Present: CN II-XII intact, oriented X3, no focal deficits. Absent: pronater drift, facial droop, speech deficit - Skin Skin exam: Present: dry, intact Internal Medicine: Result - Labs CBC & Chem 7: 12/29/17 04:58 12/29/17 04:58 Labs: Short CBC 12/29/17 Range/Units 04:58 WBC 18.0 H (4.3-11.1) K/mcL Hgb 13.8 (12.9-16.9) g/dL Hct 42.8 (37.5-50.1) % Plt Count 235 (140-400) K/mcL Neutrophils # 15.3 H (1.6-8.9) K/mcL BMP 12/29/17 04:58 Sodium 134 L Potassium 5.2 H Chloride 98 Carbon Dioxide 31 H BUN 44 H Creatinine 1.17 Glucose 362 H Calcium 8.7 - ABG Interpretation ABG results: ABG ABG pH 7.36 pH Units (7.32-7.45) 12/22/17 11:08 ABG pCO2 43 mmHg (35-45) 12/22/17 11:08 ABG pO2 179 mmHg (85-104) H 12/22/17 11:08 ABG O2 Saturation 100 % (95-98) H 02/12/18 11:08 PT/INR, D-dimer PT 16.4 Seconds (9.4-12.1) H 12/22/17 12:27 D-Dimer 1737 ng/mLFEU (0-500) H 12/22/17 12:27 Consult Discharge Plan - Plan Referrals: René Anne MD [Primary Care Provider] - 01/01/18 10:15 am
[2017-12-30] MEDS: Ipratropium/Albuterol Neb 3 ML IH SCH ×4 (01:24→11:35)
[2017-12-30] MEDS: Levothyroxine 25 MCG TABLET PO SCH (05:47)
[2017-12-30] MEDS: Budesonide/Formoterol 160/4.5 MDI IH SCH ×2 (07:27→19:53)
[2017-12-30] MEDS: Insulin LISPRO 300 UNITS/3 ML VIAL SQ SCH ×8 (08:16→20:44)
[2017-12-30] MEDS: Nicotine 14 MG PATCH.TD24 TD SCH (08:17)
[2017-12-30] MEDS: *HR* Amiodarone 200 MG TABLET PO SCH (08:18)
[2017-12-30] MEDS: predniSONE 20 MG TABLET PO SCH (08:18)
[2017-12-30] MEDS: Diltiazem CD (24hr) 180 MG CAPSULE PO SCH (08:18)
[2017-12-30] MEDS: Aspirin 81 MG TAB.CHEW PO SCH (08:19)
[2017-12-30] MEDS: Apixaban 5 MG TABLET PO SCH ×2 (08:19→20:48)
[2017-12-30] MEDS ORDERED: Ipratropium/Albuterol Neb 3 ML IH PRN (13:59)
[2017-12-30] MEDS: Levofloxacin 750 MG/150 ML 750 MG/150 ML BAG IVPB SCH (14:19)
[2017-12-30] MEDS: Silvasorb 44.4 ML TUBE TP SCH (14:19)
[2017-12-30] MEDS: Furosemide 20 MG TABLET PO SCH (14:19)
--- NOTE | 2017-12-30 16:36 | Internal Med Progress Note ---
Date of Encounter: 12/30/17 Time of Encounter: 10:45 - Assessment and plan (1) Sepsis Current Visit: Yes Status: Suspected Assessment and plan: Patient had leukocytosis, tachycardia and hypoxia at admission, however these findings could be related to recent steroid use and acute COPD. Qualifiers: Sepsis type: sepsis due to unspecified organism Qualified Code(s): A41.9 - Sepsis, unspecified organism (2) Acute exacerbation of chronic obstructive airways disease Current Visit: Yes Status: Acute Assessment and plan: Improving. Continue supplemental oxygen, bronchodilators, supportive care. Continue IV antibiotics, oral prednisone, inhaled corticosteroids. Sputum culture shows normal respiratory efra. Patient is currently requiring 2-3 L/m supplemental oxygen, home oxygen evaluation was done and patient qualifies for home oxygen, however he declines home oxygen at this time, would like to discuss with his primary care provider. library services assistant following, plan for discharge to [facility]. (3) Acute respiratory failure Current Visit: Yes Status: Acute Assessment and plan: Due to COPD and pneumonia. Continue supplemental oxygen, wean down FiO2 as tolerated. Qualifiers: Respiratory failure complication: hypoxia Qualified Code(s): J96.01 - Acute respiratory failure with hypoxia (4) HCAP (healthcare-associated pneumonia) Current Visit: Yes Status: Acute Assessment and plan: CT angiogram chest shows no pulmonary embolism, parenchymal lung disease could be pneumonia. Patient has been on broad-spectrum IV antibiotics due to recent hospitalization. We will de-escalate to IV Levaquin. Sputum culture shows normal upper respiratory efra. Supportive care and supplemental oxygen. (5) Type 2 diabetes mellitus Current Visit: Yes Status: Chronic Assessment and plan: Recently diagnosed. Hemoglobin A1c noted to be 7.4%. Has steroid-induced hyperglycemia. Blood sugars continue to be elevated. Will increase Levemir and nutritional insulin, continue sliding scale insulin and Accu-Chek blood glucose monitoring. Diabetic diet. Patient has been educated regarding use of glucometer and insulin injections. Will be provided with a prescription for glucometer, to be received from the hospital. Qualifiers: Diabetes mellitus complication status: with unspecified complications Diabetes mellitus intermission coordinator insulin use: without intermission coordinator use Qualified Code( s): E11.8 - Type 2 diabetes mellitus with unspecified complications (6) Hypothyroidism Current Visit: Yes Status: Chronic Assessment and plan: Continue levothyroxine. Qualifiers: Hypothyroidism type: unspecified Qualified Code(s): E03.9 - Hypothyroidism , unspecified (7) Acute kidney injury Current Visit: No Status: Resolved (8) Essential hypertension Current Visit: No Status: Acute (9) Alcohol dependence Current Visit: Yes Status: Chronic Qualifiers: Substance use status: alcohol-induced mood disorder Qualified Code(s): F10.24 - Alcohol dependence with alcohol-induced mood disorder (10) Atrial flutter Current Visit: Yes Status: Chronic Assessment and plan: Currently rate controlled. Continue amiodarone, beta lonnie, long-term anticoagulation with Eliquis. Qualifiers: Atrial flutter type: atypical Qualified Code(s): I48.4 - Atypical atrial flutter (11) CAD (coronary artery disease) Current Visit: Yes Status: Chronic Qualifiers: Coronary Disease-Associated Artery/Lesion type: [place] artery [place] vs. transplanted heart: [place] heart Associated angina: without angina Qualified Code(s): I25.10 - Atherosclerotic heart disease of [place] coronary artery without angina pectoris (12) Hepatitis C Current Visit: Yes Status: Chronic Qualifiers: Viral hepatitis chronicity: chronic Hepatic coma status: without hepatic coma Qualified Code(s): B18.2 - Chronic viral hepatitis C (13) Major depress dis, severe Current Visit: Yes Status: Chronic (14) Tobacco abuse Current Visit: Yes Status: Chronic - Subjective Interval history: Reports feeling better. Improving cough and shortness of breath. No chest pain , wheezing, palpitations. - Constitutional Vitals: Temp Pulse Resp BP Pulse Ox 98.8 F 88 15 103/65 93 12/30/17 16:03 12/30/17 16:03 12/30/17 16:03 12/30/17 16:03 12/30/17 16:03 General appearance: Present: A&O X 3, no acute distress, answers questions appropriately - Respiratory Respiratory exam: Present: CTAB. Absent: accessory muscle use, rales, rhonchi, wheezes - Cardiovascular Cardiovascular exam: Present: RRR, +S1, +S2. Absent: diastolic murmur, gallop, rubs, systolic murmur - GI/Abdominal GI/Abdominal exam: Present: normal bowel sounds, soft, no peritoneal signs. Absent: distended, tenderness - Extremities Exam Extremities exam: Present: full ROM, warm, radial pulses palpable and symmetrical. Absent: calf tenderness, cyanotic, pedal edema - Neurological Exam Neurological exam: Present: CN II-XII intact, oriented X3, no focal deficits. Absent: pronater drift, facial droop, speech deficit Internal Medicine: Result - Labs CBC & Chem 7: 12/29/17 04:58 12/29/17 04:58 - ABG Interpretation ABG results: ABG ABG pH 7.36 pH Units (7.32-7.45) 12/22/17 11:08 ABG pCO2 43 mmHg (35-45) 12/22/17 11:08 ABG pO2 179 mmHg (85-104) H 12/22/17 11:08 ABG O2 Saturation 100 % (95-98) H 12/22/17 11:08 PT/INR, D-dimer PT 16.4 Seconds (9.4-12.1) H 12/22/17 12:27 D-Dimer 1737 ng/mLFEU (0-500) H 12/22/17 12:27 Consult Discharge Plan - Plan Referrals: René Anne MD [Primary Care Provider] - 01/01/18 10:15 am
[2017-12-30] MEDS: Mirtazapine 15 MG TABLET PO SCH (20:49)
[2017-12-30] MEDS: Insulin DETEMIR 100 UNIT/ML X5UNITS SQ SCH (20:49)
[2017-12-31] MEDS: Levothyroxine 25 MCG TABLET PO SCH (07:04)
[2017-12-31] MEDS: Budesonide/Formoterol 160/4.5 MDI IH SCH ×2 (07:34→20:52)
[2017-12-31 07:48] LABS: Mycoplasma pneumoniae IgG 0.36 U/L (<=0.09)
--- NOTE | 2017-12-31 08:39 | Discharge Summary ---
Orders not resulted at time of discharge: Pending orders 12/27/17 13:48 Legionella Antigen [RM] Routine Respiratory Infection Panel [MOLMIC] Routine Streptococcal pneumoniae urin antigen [S. Pneumoniae Antigen] [RM] Routine Date of Encounter: 12/31/17 Time of Encounter: 08:37 - Discharge Diagnosis (1) Sepsis Priority: Primary Status: Suspected Qualifiers: Sepsis type: sepsis due to unspecified organism Qualified Code(s): A41.9 - Sepsis, unspecified organism (2) Acute exacerbation of chronic obstructive airways disease Priority: Primary Status: Acute (3) Acute respiratory failure Priority: Primary Status: Acute Qualifiers: Respiratory failure complication: hypoxia Qualified Code(s): J96.01 - Acute respiratory failure with hypoxia (4) HCAP (healthcare-associated pneumonia) Priority: Primary Status: Acute (5) Type 2 diabetes mellitus Priority: Primary Status: Chronic Qualifiers: Diabetes mellitus complication status: with unspecified complications Diabetes mellitus intermission coordinator insulin use: without detention use Qualified Code( s): E11.8 - Type 2 diabetes mellitus with unspecified complications (6) Hypothyroidism Priority: Secondary Status: Chronic Qualifiers: Hypothyroidism type: unspecified Qualified Code(s): E03.9 - Hypothyroidism , unspecified (7) Acute kidney injury Priority: Primary Status: Resolved (8) Essential hypertension Priority: Secondary Status: Chronic (9) Alcohol dependence Priority: Secondary Status: Chronic Qualifiers: Substance use status: alcohol-induced mood disorder Qualified Code(s): F10.24 - Alcohol dependence with alcohol-induced mood disorder (10) Atrial flutter Priority: Secondary Status: Chronic Qualifiers: Atrial flutter type: atypical Qualified Code(s): I48.4 - Atypical atrial flutter (11) CAD (coronary artery disease) Priority: Secondary Status: Chronic Qualifiers: Coronary Disease-Associated Artery/Lesion type: [place] artery [place] vs. transplanted heart: [place] heart Associated angina: without angina Qualified Code(s): I25.10 - Atherosclerotic heart disease of [place] coronary artery without angina pectoris (12) Hepatitis C Priority: Secondary Status: Chronic Qualifiers: Viral hepatitis chronicity: chronic Hepatic coma status: without hepatic coma Qualified Code(s): B18.2 - Chronic viral hepatitis C (13) Major depress dis, severe Priority: Secondary Status: Chronic (14) Tobacco abuse Priority: Secondary Status: Chronic Hospital course: Mr. Gilliland is a 62 year old male with the above medical problems, who was admitted with worsening shortness of breath. Patient was recently discharged from our hospital after being evaluated for near syncope and acute COPD. CT angiogram chest during this admission showed no evidence of PE, bilateral parenchymal lung disease having the appearance of pneumonia. He had sepsis due to pneumonia, He was started on broad-spectrum IV antibiotics-cefepime, Levaquin , IV hydration, breathing treatments, IV steroids and supplemental oxygen. Sputum culture grew normal upper respiratory efra. Antibiotics de escalated to Levaquin. Patient had acute kidney injury at admission likely due to underlying infection , which resolved with IV hydration. Patient had new onset of diabetes, hemoglobin A1c 7.4%, he is being provided with glucometer and being started on basal insulin, education provided regarding these. He is noted to have medical noncompliance, compliance and smoking cessation have been reinforced multiple times. Case management and social group worker on board, patient is being discharged from the homeless residential at this time. He is being provided with a limited supply of all his medications by outpatient pharmacy. He is encouraged to follow up with primary care provider for further continuity of care and prescription refills. Discharge discussed with: patient - Time Spent with Patient Total time spent providing and/or coordinating discharge services: Greater than 30 minutes (45 min) - Discharge Medications Prescriptions: Ipratropium/Albuterol Neb [Duoneb] 3 ml IH [id number] PRN #60 inhsol PRN Reason: Shortness Of Breath/Wheezing Amiodarone [Cordarone] 200 mg PO DAILY #30 tablet Apixaban [Eliquis] 5 mg PO BID #60 tablet Aspirin 81 mg PO DAILY #30 tab.chew Budesonide/Formoterol 160/4.5 [Symbicort 160/4.5] 2 puff IH BIDR 30 Days hfa.aer.ad Buspirone HCl [Buspar] 10 mg PO TID 14 Days #84 tablet Diltiazem HCl [Cardizem Cd] 360 mg PO DAILY #30 cap.er.24h Docusate [Colace] 100 mg PO BID #30 capsule DULoxetine [Cymbalta] 60 mg PO BID #60 capsule. Furosemide [Lasix] 20 mg PO DAILY #30 tablet Insulin DETEMIR [Levemir] 40 unit SQ HS 15 Days p1soppn Levofloxacin [Levaquin] 750 mg PO DAILY #4 tablet Levothyroxine [Synthroid] 25 mcg PO DAILY@0630 30 Days #30 tablet Meclizine HCl [Verticalm] 25 mg PO DAILY PRN #30 tablet PRN Reason: Vertigo Metoprolol [Lopressor] 25 mg PO BID #60 tablet Mirtazapine [Remeron] 45 mg PO HS #30 tablet Multivitamin with Folic Acid [Gnp One Daily Essential Tablet] 400 mcg PO DAILY # 30 tablet Nicotine Patch [Nicoderm] 14 mg TD DAILY #28 patch.td24 Quetiapine Fumarate [Seroquel] 200 mg PO HS #60 tablet traZODone [TraZODone] 50 mg PO HS PRN 14 Days #14 tablet PRN Reason: Insomnia traZODone [TraZODone] 50 mg PO HS PRN #30 tablet PRN Reason: Insomnia Home Medications: Quetiapine Fumarate [Seroquel] 200 mg PO HS 10/21/15 [History] Saline Nasal [place] [[place] Nasal [place]] 2 spray NS Q2H PRN 30 Days #1 bottle 08/27 [Rx] predniSONE [PredniSONE] 40 mg PO DAILY #10 tablet 12/16/17 [Rx] Amiodarone [Cordarone] 200 mg PO DAILY #30 tablet 12/31/17 [Rx] Apixaban [Eliquis] 5 mg PO BID #60 tablet 12/31/17 [Rx] Aspirin 81 mg PO DAILY #30 tab.chew 12/31/17 [Rx] Budesonide/Formoterol 160/4.5 [Symbicort 160/4.5] 2 puff IH BIDR 30 Days hfa.aer.ad 12/31/17 [Rx] Buspirone HCl [Buspar] 10 mg PO TID 14 Days #84 tablet 12/31/17 [Rx] DULoxetine [Cymbalta] 60 mg PO BID #60 capsule.dr 12/31/17 [Rx] Diltiazem HCl [Cardizem Cd] 360 mg PO DAILY #30 cap.er.24h 12/31/17 [Rx] Docusate [Colace] 100 mg PO BID #30 capsule 12/31/17 [Rx] Furosemide [Lasix] 20 mg PO DAILY #30 tablet 12/31/17 [Rx] Insulin DETEMIR [Levemir] 40 unit SQ HS 15 Days [id number] 12/31/17 [Rx] Ipratropium/Albuterol Neb [Duoneb] 3 ml IH [id number] PRN #60 inhsol 12/31/17 [Rx] Levofloxacin [Levaquin] 750 mg PO DAILY #4 tablet 12/31/17 [Rx] Levothyroxine [Synthroid] 25 mcg PO DAILY@0630 30 Days #30 tablet 12/31/17 [Rx] Meclizine HCl [Verticalm] 25 mg PO DAILY PRN #30 tablet 12/31/17 [Rx] Mirtazapine [Remeron] 45 mg PO HS #30 tablet 12/31/17 [Rx] Multivitamin with Folic Acid [Gnp One Daily Essential Tablet] 400 mcg PO DAILY # 30 tablet 12/31/17 [Rx] Nicotine Patch [Nicoderm] 14 mg TD DAILY #28 patch.td24 12/31/17 [Rx] Quetiapine Fumarate [Seroquel] 200 mg PO HS #60 tablet 12/31/17 [Rx] traZODone [TraZODone] 50 mg PO HS PRN #30 tablet 12/31/17 [Rx] traZODone [TraZODone] 50 mg PO HS PRN 14 Days #14 tablet 12/31/17 [Rx] Metoprolol [Lopressor] 25 mg PO BID #60 tablet 01/01/18 [Rx] Allergies/Adverse Reactions: 3 Allergy/AdvReac Type Severity Reaction Status Date / Time Tetanus Vaccines and Toxoid AdvReac Intermediate Fever Verified 12/13/17 22:45 [Tetanus Vaccines & Toxoid] Date of admission: 12/22/17 15:40 Primary care physician: René Anne MD Consults: 12/24/17 11:54 Consult to Wound Care [CONS] Routine Reason for Consult: right great toe Call Completed: No 12/26/17 21:44 Consult to Occupational Therapy [CONS] Routine Comment: Evaluate, develop and implement POC Reason for Consult: Evaluate, develop and implement POC Consult to Physical Therapy [CONS] Routine Comment: Evaluate, develop and implement POC Reason for Consult: Disposition planning. Therapy - weakness in bed. 12/29/17 17:53 Consult to Diabetes Education [CONS] Routine Comment: Reason for Consult: New diagnosis Discharging clinician: Sunni Roberson Anticipated date of discharge: 12/31/17 - Constitutional Vitals: Temp Pulse Resp BP Pulse Ox 98.0 F 80 17 111/69 92 12/31/17 06:57 12/31/17 06:57 12/31/17 07:36 12/31/17 06:57 12/31/17 07:36 General appearance: Present: A&O X 3, answers questions appropriately - Respiratory Respiratory exam: Present: CTAB. Absent: accessory muscle use, rales, rhonchi, wheezes - Patient Status Disposition: Home, Self-Care Condition: Good Functional capacity at discharge: independent ambulation Overall status at discharge: patient is progressing back to baseline - Discharge Instructions Instructions: Diabetes Mellitus Type 2 in Adults (DC), Chronic Obstructive Pulmonary Disease (DC) Follow Up With: René Anne MD [Primary Care Provider] - 01/05/18 2:30 pm - Diet and Activity Activity: resume usual activities as tolerated, wear oxygen at all times Diet: diabetic diet, low fat, low cholesterol, low salt diet
[2017-12-31] MEDS: Insulin LISPRO 300 UNITS/3 ML VIAL SQ SCH ×7 (08:51→22:06)
[2017-12-31] MEDS: predniSONE 20 MG TABLET PO SCH (08:52)
[2017-12-31] MEDS: *HR* Amiodarone 200 MG TABLET PO SCH (08:52)
[2017-12-31] MEDS: Diltiazem CD (24hr) 180 MG CAPSULE PO SCH (08:53)
[2017-12-31] MEDS: Furosemide 20 MG TABLET PO SCH (08:53)
[2017-12-31] MEDS: Aspirin 81 MG TAB.CHEW PO SCH (08:53)
[2017-12-31] MEDS: Apixaban 5 MG TABLET PO SCH ×2 (08:53→22:05)
[2017-12-31] MEDS: Silvasorb 44.4 ML TUBE TP SCH (08:58)
[2017-12-31] MEDS: Nicotine 14 MG PATCH.TD24 TD SCH (08:58)
[2017-12-31] MEDS: levoFLOXacin 750 MG TABLET PO SCH (14:24)
[2017-12-31] MEDS: Mirtazapine 15 MG TABLET PO SCH (22:06)
[2017-12-31] MEDS: Insulin DETEMIR 100 UNIT/ML X5UNITS SQ SCH (22:11)
[2018-01-01] MEDS: Levothyroxine 25 MCG TABLET PO SCH (06:22)
[2018-01-01] MEDS: Insulin LISPRO 300 UNITS/3 ML VIAL SQ SCH ×2 (07:40→09:27)
[2018-01-01 07:53] VITALS: BP 125/84
[2018-01-01 08:56] LABS: Basophils # 0.1 K/mcL (0.0-0.2); Basophils % 0.4 %; Eosinophils % 0.2 %; Hematocrit 44.7 % (37.5-50.1); Hemoglobin 14.4 g/dL (12.9-16.9); Immature Granulocytes % 1.4 % (0-4); Lymphocytes # 4.1 K/mcL (0.6-4.6); Mean Corpuscular HGB Conc 32.2 g/dL (31.6-35.5); Mean Corpuscular Hemoglobin 29.1 pg (28.0-33.3); Mean Corpuscular Volume 90.5 fL (83.0-100.0); Mean Platelet Volume 9.7 fL (9.4-12.4); Monocytes # 1.3 K/mcL (0.0-1.3); Monocytes % 9.2 %; Neutrophils # 8.5 K/mcL (1.6-8.9); Platelet Count 191 K/mcL (140-400); Red Blood Count 4.94 M/mcL (4.19-5.50); Red Cell Distribution Width 14.3 % (11.5-14.5); Segmented Neutrophils % 59.8 %
[2018-01-01 09:14] LABS: BUN/Creatinine Ratio 31 (6-26); Blood Urea Nitrogen 31 mg/dL (8-23); Carbon Dioxide 30 mEq/L (23-29); Chloride 100 mEq/L (98-107); Glucose 134 mg/dL (70-105); Osmolality,Calculated 291 (280-300); Sodium 136 mEq/L (136-145); eGFR For African Americans > 60 (> 60); eGFR For Non-African Americans > 60 (> 60)
[2018-01-01] MEDS: levoFLOXacin 750 MG TABLET PO SCH (09:24)
[2018-01-01] MEDS: Furosemide 20 MG TABLET PO SCH (09:26)
[2018-01-01] MEDS: Apixaban 5 MG TABLET PO SCH (09:26)
[2018-01-01] MEDS: *HR* Amiodarone 200 MG TABLET PO SCH (09:26)
[2018-01-01] MEDS: predniSONE 20 MG TABLET PO SCH (09:26)
[2018-01-01] MEDS: Diltiazem CD (24hr) 180 MG CAPSULE PO SCH (09:26)
[2018-01-01] MEDS: Aspirin 81 MG TAB.CHEW PO SCH (09:28)
[2018-01-01] MEDS: Nicotine 14 MG PATCH.TD24 TD SCH (09:29)
[2018-01-01] MEDS: Silvasorb 44.4 ML TUBE TP SCH (09:31)
[2018-01-01] MEDS: Budesonide/Formoterol 160/4.5 MDI IH SCH (10:15)
--- NOTE | 2018-01-01 17:19 | Internal Med Progress Note ---
Date of Encounter: 01/01/18 Time of Encounter: 08:45 - Assessment and plan (1) Sepsis Status: Suspected Qualifiers: Sepsis type: sepsis due to unspecified organism Qualified Code(s): A41.9 - Sepsis, unspecified organism (2) Acute exacerbation of chronic obstructive airways disease Status: Acute Assessment and plan: Improving. Continue supplemental oxygen, bronchodilators, supportive care. volunteer services supervisor following, plan for discharge to [facility]. (3) Acute respiratory failure Status: Acute Assessment and plan: Due to COPD and pneumonia. Saturating well on room air; Patient noted to have dizziness, has orthostatic hypotension. Will change metoprolol back to 25 mg twice daily, this has been discussed with pharmacy and the patient. He is again encouraged to comply with his medications and smoking cessation, he verbalized understanding. He is otherwise medically stable for discharge. Qualifiers: Respiratory failure complication: hypoxia Qualified Code(s): J96.01 - Acute respiratory failure with hypoxia (4) HCAP (healthcare-associated pneumonia) Status: Acute (5) Type 2 diabetes mellitus Status: Chronic Qualifiers: Diabetes mellitus complication status: with unspecified complications Diabetes mellitus client service representative insulin use: without client service representative use Qualified Code( s): E11.8 - Type 2 diabetes mellitus with unspecified complications (6) Hypothyroidism Status: Chronic Qualifiers: Hypothyroidism type: unspecified Qualified Code(s): E03.9 - Hypothyroidism , unspecified (7) Acute kidney injury Status: Resolved (8) Essential hypertension Status: Chronic (9) Alcohol dependence Status: Chronic Qualifiers: Substance use status: alcohol-induced mood disorder Qualified Code(s): F10.24 - Alcohol dependence with alcohol-induced mood disorder (10) Atrial flutter Status: Chronic Qualifiers: Atrial flutter type: atypical Qualified Code(s): I48.4 - Atypical atrial flutter (11) CAD (coronary artery disease) Status: Chronic Qualifiers: Coronary Disease-Associated Artery/Lesion type: [place] artery [place] vs. transplanted heart: [place] heart Associated angina: without angina Qualified Code(s): I25.10 - Atherosclerotic heart disease of [place] coronary artery without angina pectoris (12) Hepatitis C Status: Chronic Qualifiers: Viral hepatitis chronicity: chronic Hepatic coma status: without hepatic coma Qualified Code(s): B18.2 - Chronic viral hepatitis C (13) Major depress dis, severe Status: Chronic (14) Tobacco abuse Status: Chronic - Subjective Interval history: Sustained a fall this morning. He was ambulating independently in the hallway, when he felt dizzy and leaned onto the railing and slowly sank down. Did not hit his head, no other injuries. Denies chest pain or shortness of breath, awaiting [facility]. - Constitutional Vitals: Temp Pulse Resp BP Pulse Ox 97.7 F 76 15 125/84 95 01/01/18 06:57 01/01/18 07:40 01/01/18 06:57 01/01/18 07:40 01/01/18 06:57 General appearance: Present: A&O X 3, answers questions appropriately - Respiratory Respiratory exam: Present: CTAB. Absent: accessory muscle use, rales, rhonchi, wheezes - Cardiovascular Cardiovascular exam: Present: RRR, +S1, +S2. Absent: diastolic murmur, gallop, rubs, systolic murmur Internal Medicine: Result - Labs CBC & Chem 7: 01/01/18 08:43 01/01/18 08:43 Labs: Short CBC 01/01/18 Range/Units 08:43 WBC 14.1 H (4.3-11.1) K/mcL Hgb 14.4 (12.9-16.9) g/dL Hct 44.7 (37.5-50.1) % Plt Count 191 (140-400) K/mcL Neutrophils # 8.5 (1.6-8.9) K/mcL BMP 01/01/18 08:43 Sodium 136 Potassium 4.0 Chloride 100 Carbon Dioxide 30 H BUN 31 H Creatinine 0.99 Glucose 134 H Calcium 9.0 - ABG Interpretation ABG results: ABG ABG pH 7.36 pH Units (7.32-7.45) 12/22/17 11:08 ABG pCO2 43 mmHg (35-45) 12/22/17 11:08 ABG pO2 179 mmHg (85-104) H 12/22/17 11:08 ABG O2 Saturation 100 % (95-98) H 12/22/17 11:08 PT/INR, D-dimer PT 16.4 Seconds (9.4-12.1) H 12/22/17 12:27 D-Dimer 1737 ng/mLFEU (0-500) H 12/22/17 12:27 Consult Discharge Plan - Plan Instructions: Diabetes Mellitus Type 2 in Adults (DC), Chronic Obstructive Pulmonary Disease (DC) Referrals: René Anne MD [Primary Care Provider] - 01/05/18 2:30 pm Prescriptions: Ipratropium/Albuterol Neb [Duoneb] 3 ml IH [id number] PRN #60 inhsol PRN Reason: Shortness Of Breath/Wheezing Amiodarone [Cordarone] 200 mg PO DAILY #30 tablet Apixaban [Eliquis] 5 mg PO BID #60 tablet Aspirin 81 mg PO DAILY #30 tab.chew Budesonide/Formoterol 160/4.5 [Symbicort 160/4.5] 2 puff IH BIDR 30 Days hfa.aer.ad Buspirone HCl [Buspar] 10 mg PO TID 14 Days #84 tablet Diltiazem HCl [Cardizem Cd] 360 mg PO DAILY #30 cap.er.24h Docusate [Colace] 100 mg PO BID #30 capsule DULoxetine [Cymbalta] 60 mg PO BID #60 capsule.dr Furosemide [Lasix] 20 mg PO DAILY #30 tablet Insulin DETEMIR [Levemir] 40 unit SQ HS 15 Days [id number] Levofloxacin [Levaquin] 750 mg PO DAILY #4 tablet Levothyroxine [Synthroid] 25 mcg PO DAILY@0630 30 Days #30 tablet Meclizine HCl [Verticalm] 25 mg PO DAILY PRN #30 tablet PRN Reason: Vertigo Metoprolol [Lopressor] 25 mg PO BID #60 tablet Mirtazapine [Remeron] 45 mg PO HS #30 tablet Multivitamin with Folic Acid [Gnp One Daily Essential Tablet] 400 mcg PO DAILY # 30 tablet Nicotine Patch [Nicoderm] 14 mg TD DAILY #28 patch.[id number] Quetiapine Fumarate [Seroquel] 200 mg PO HS #60 tablet traZODone [TraZODone] 50 mg PO HS PRN 14 Days #14 tablet PRN Reason: Insomnia traZODone [TraZODone] 50 mg PO HS PRN #30 tablet PRN Reason: Insomnia
== END 2018-01-01 10:20 | disposition home or self-care (01) | DRG 720 ==
LOC: EMEROO 10:47 → 2SOUTHHOLD 10:47 → SUATTDRO 15:40 → OBSVTOIN 15:40 → 2SOUTHHOLD 16:25 → 3ANU 12-25 17:13
PROVIDERS: ADMIT Student in an Organized Health Care Education/Training Program; ATTEND Internal Medicine